=== PATIENT | male | born 1950 | race Caucasian/White ===

== ENCOUNTER 2023-04-10 13:02 | Emergency (ER) | payer MEDICARE, MEDICAID, SELFPAY ==
--- NOTE | ~2023-04-10 | XR_ITS ---
Examination: Right ankle, right tibia and fibula, right femur and right foot. Clinical indications: Trauma. Swelling. COMPARISON: None. TECHNIQUE: Right foot 3 views. Right ankle 2 views. Right tibia and fibula 2 views. Right femur 2 views. FINDINGS: Right foot: There is mild loss of first tarsophalangeal joint with no bony erosive changes. No visible acute fracture or dislocation seen. The soft tissues are normal. Right ankle: The ankle mortise and subtalar joints are normal. There is a small calcaneal heel and retrocalcaneal enthesophyte. The soft tissues are normal. Right tibia and fibula: There is no visible fracture or bony abnormality. The bony cortex and periosteum is intact. There is vascular calcification without soft tissue swelling. Mild degenerative loss of medial and lateral compartment joint space with periarticular spurring medial compartment is noted.. XR/XR femur RT 2V IMPRESSION: 1. No acute fracture or dislocation right foot, right tibia and fibula. 2. Small calcaneal heel and moderate size retrocalcaneal enthesophytes. 3. Mild degenerative changes first metatarsophalangeal joint. 4. There is no visible acute fracture or dislocation right ankle. There is mild degenerative changes medial and lateral compartment right knee.
--- NOTE | ~2023-04-10 | XR_ITS ---
Examination: Right ankle, right tibia and fibula, right femur and right foot. Clinical indications: Trauma. Swelling. COMPARISON: None. TECHNIQUE: Right foot 3 views. Right ankle 2 views. Right tibia and fibula 2 views. Right femur 2 views. FINDINGS: Right foot: There is mild loss of first tarsophalangeal joint with no bony erosive changes. No visible acute fracture or dislocation seen. The soft tissues are normal. Right ankle: The ankle mortise and subtalar joints are normal. There is a small calcaneal heel and retrocalcaneal enthesophyte. The soft tissues are normal. Right tibia and fibula: There is no visible fracture or bony abnormality. The bony cortex and periosteum is intact. There is vascular calcification without soft tissue swelling. Mild degenerative loss of medial and lateral compartment joint space with periarticular spurring medial compartment is noted.. XR/XR ankle RT 2V IMPRESSION: 1. No acute fracture or dislocation right foot, right tibia and fibula. 2. Small calcaneal heel and moderate size retrocalcaneal enthesophytes. 3. Mild degenerative changes first metatarsophalangeal joint. 4. There is no visible acute fracture or dislocation right ankle. There is mild degenerative changes medial and lateral compartment right knee.
--- NOTE | ~2023-04-10 | XR_ITS ---
Examination: Right ankle, right tibia and fibula, right femur and right foot. Clinical indications: Trauma. Swelling. COMPARISON: None. TECHNIQUE: Right foot 3 views. Right ankle 2 views. Right tibia and fibula 2 views. Right femur 2 views. FINDINGS: Right foot: There is mild loss of first tarsophalangeal joint with no bony erosive changes. No visible acute fracture or dislocation seen. The soft tissues are normal. Right ankle: The ankle mortise and subtalar joints are normal. There is a small calcaneal heel and retrocalcaneal enthesophyte. The soft tissues are normal. Right tibia and fibula: There is no visible fracture or bony abnormality. The bony cortex and periosteum is intact. There is vascular calcification without soft tissue swelling. Mild degenerative loss of medial and lateral compartment joint space with periarticular spurring medial compartment is noted.. XR/XR foot RT 2V IMPRESSION: 1. No acute fracture or dislocation right foot, right tibia and fibula. 2. Small calcaneal heel and moderate size retrocalcaneal enthesophytes. 3. Mild degenerative changes first metatarsophalangeal joint. 4. There is no visible acute fracture or dislocation right ankle. There is mild degenerative changes medial and lateral compartment right knee.
--- NOTE | ~2023-04-10 | US_ITS ---
EXAMINATION: US VENOUS ULTRASOUND WITH DOPPLER LOWER EXTREMITY, RIGHT CLINICAL INFORMATION: Right foot swelling. COMPARISON: None available. TECHNIQUE: Ultrasound of the deep veins is performed from the hip to the calf with compression sonography and color and pulse Doppler assessment. Spectral analysis with color-flow imaging is performed. FINDINGS: There is normal venous compression and respiratory variation and augmented flow when possible. Portions of the popliteal vein could not be compressed due to pain. The visualized common femoral vein, superficial femoral vein, profunda femoral vein, popliteal vein, and the trifurcation region shows no evidence of deep venous thrombosis. Popliteal fossa fluid collection measures 5.9 x 1.0 x 2.3 cm. If the patient's symptoms persist, followup ultrasound in 5 days 7 days might be of value to exclude proximal propagation from a non-visualized calf vein. US/US venous duplex LE RT IMPRESSION: No DVT demonstrated in the right lower extremity. Rouleaux artifact/slow flow is seen throughout the venous system. Popliteal fossa fluid collection measures 5.9 x 1.0 x 2.3 cm.
--- NOTE | ~2023-04-10 | XR_ITS ---
Examination: Right ankle, right tibia and fibula, right femur and right foot. Clinical indications: Trauma. Swelling. COMPARISON: None. TECHNIQUE: Right foot 3 views. Right ankle 2 views. Right tibia and fibula 2 views. Right femur 2 views. FINDINGS: Right foot: There is mild loss of first tarsophalangeal joint with no bony erosive changes. No visible acute fracture or dislocation seen. The soft tissues are normal. Right ankle: The ankle mortise and subtalar joints are normal. There is a small calcaneal heel and retrocalcaneal enthesophyte. The soft tissues are normal. Right tibia and fibula: There is no visible fracture or bony abnormality. The bony cortex and periosteum is intact. There is vascular calcification without soft tissue swelling. Mild degenerative loss of medial and lateral compartment joint space with periarticular spurring medial compartment is noted.. XR/XR tibia fibula RT 2V IMPRESSION: 1. No acute fracture or dislocation right foot, right tibia and fibula. 2. Small calcaneal heel and moderate size retrocalcaneal enthesophytes. 3. Mild degenerative changes first metatarsophalangeal joint. 4. There is no visible acute fracture or dislocation right ankle. There is mild degenerative changes medial and lateral compartment right knee.
[2023-04-10 13:20] VITALS: BP 124/71; BP 148/82; PULSE 92; PULSE 93; RESP 16; TEMP 37.2; O2SAT 97; O2SAT 98; BMI 25.6
--- OUTSIDE RECORDS SUMMARY | 2023-04-10 14:16 | XMS_ITS | Continuity of Care Document ---
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 Name Role Phone Otf Zelaya MD Primary Care Physician [place] [facility] [place] 06[place]20 - 06/18/20 [facility] Adult [address] [place] [address]- Encounter Diagnosis Left knee injury(Discharge Diagnosis) - 06/11/20 Attending Physician: Cydney Benton NP Referring Physician: Otf Zelaya MD Allergies, Adverse Reactions, Alerts Substance Reaction Severity Status ibuprofen ANAPHYLAXIS Active aspirin anaphylaxis Severe Active Flomax Active Immunizations Given and Recorded Vaccine Date Status Refusal Reason pneumococcal 13-valent vaccine 05/16/15 Given tetanus/diphtheria/pertussis, acel(Tdap) 07/07/13 Given Hepatitis B Vaccine (old term) 09/23/04 Given Hepatitis B Vaccine (old term) 03/26/04 Given Hepatitis B Vaccine (old term) 02/24/04 Given Hepatitis A Adult Vaccine 03/26/04 Given Hepatitis A Adult Vaccine 02/24/04 Given Pneumococcal Vaccine (oldterm) 03/09/04 Given tetanus-diphtheria toxoids (Td) 01/07/03 Given Medications Accu-Chek Cherelle Plus Test Strips See Instructions, # 100 each, Refills 3, Tot. Refills 3, Maintenance, Please use as directed to test BS's BID for DM2 E11.9 REFAXED WITH QTY REQUIRED BY MEDICARE, 07/25/15 10:22:14, Compound Start Date: 07/25/15 Status: Ordered Flonase 50 mcg/inh nasal spray 2 sprays, Nasal, Daily, # 1 each, 11 Refills, Maintenance, 04/18/20 9:32:00 EST, [id number], 2 sprays Nasal Daily,x30 days, 165, cm, 04/18/20 9:20:00 EST, Height Start Date: 04/18/20 Stop Date: 04/13/21 Status: Ordered nitroglycerin 0.4 mg sublingual tablet 1 tablet = 0.4 mg, Sublingual, Every 5 minutes, PRN Pain , Moderate, (not to exceed 3 doses/15 min--if pain persists, seek medical attention), # 25 tablet, 0 Refills, Maintenance, 02/10/18 9:40:43 EST Start Date: 02/10/18 Status: Ordered Pen [place], 30 G x 8 mm BD Ultra Fine II See Instructions, # 30 each, Refills 6, Tot. Refills 6, Maintenance, Please use as directed to administer insulin SQ daily for DM2 E11.9 REFAXED, 07/24/15 13:47:37, Compound Start Date: 07/24/15 Status: Ordered Plavix 75 mg oral tablet 75 mg, 1, tablet, By Mouth, Daily, # 90 tablet, Refills 3, Tot. Refills 3, Maintenance, 10/14/19 9:18:00 EDT, Route to Pharmacy Electronically, [id number], 165, cm, 10/14/19 9:03:00EDT, Height, 80, kg, 03/23/18 18:39:00 EST, Dry Weight Start Date: 10/14/19 Status: Ordered Soft Click Lancets See Instructions, # 60 each, Refills 6, Tot. Refills 6, Maintenance, Please use as directed to testBS's BID for DM2 E11.9, 04/06/15 15:06:48, Compound Start Date: 04/06/15 Status: Ordered Ventolin HFA 108 mcg/inh inhalation aerosol with adapter 2 puffs, Inhalation, 4 times a day, PRN for wheezing, # 8 Gm, 11 Refills, Maintenance, 04/18/20 9:32:00 EST, Aerosol, [facility]/pharmacy #[id number], 165, cm, 04/18/20 9:20:00 EST, Height Start Date: 04/18/20 Status: Ordered Viagra 50 mg oral tablet 1 tablet = 50 mg, By Mouth, Daily, 1 hour before sexual activity, # 30 tablet, 5 Refills, Maintenance, 04/18/20 9:33:00 EST, Tablet, [facility]/pharmacy #[id number], 165, cm, 04/18/20 9:20:00 EST, Height Start Date: 04/18/20 Status: Ordered Zestril 20 mg oral tablet 20 mg, 1, tablet, By Mouth, Daily, # 90 tablet, Refills 3, Tot. Refills 3, Maintenance, 01/20/20 8:52:00 EST, Route to Pharmacy Electronically, [facility]/pharmacy #[id number], 165, cm, 10/14/19 9:03:00 EDT, Height, 80, kg, 03/23/18 18:39:00 EST, Dry Weight Start Date: 01/20/20 Status: Ordered Zetia 10 mg oral tablet 1 tablet = 10 mg, By Mouth, Daily, # 90 tablet, 3 Refills, Maintenance, 01/20/20 8:52:00 EST, [facility]/pharmacy #[id number], 165, cm, 10/14/19 9:03:00 EDT, Height, 80, kg, 03/23/18 18:39:00 EST, Dry Weight Start Date: 01/20/20 Status: Ordered Problem List Condition Effective Dates Status Health Status Inform ant Adenomatous polyposis coli(C onfirmed) 1 Active Allergic Rhinitis(Confirmed) Active Asthma(Confirmed) Active BPH (benign prostatic hypertrophy)(Confirmed) Active CAD (coronary artery disease)(Confirmed) Active Chronic hepatitis C(Confirmed) Active 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 CS (cervical spondylosis)(Confirmed) Active Diabetes mellitus, type II(Confirmed) Active HTN (hypertension)(Confirmed) Active Hypercholesterolemia(Confirmed) Active Erectile dysfunction(Confirmed) Active Left knee injury(Confirmed) Active Arthralgia(Confirmed) Active 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
--- OUTSIDE RECORDS SUMMARY | 2023-04-10 14:16 | XMS_ITS | Continuity of Care Document ---
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 Name Role Phone Nathalie ARAGON, Otf Del Rosario Primary Care Physician Encounter [facility] [place] Date(s): 05/21/20 - 06/20/20 [facility] Adult [address] [place] [address]- Attending Physician: Tolu Rivera MD Allergies, Adverse Reactions, Alerts Substance Reaction [...] 11 Refills, Maintenance, 04/18/20 9:32:00 EST, [id number], 2 sprays Nasal Daily,x30 days, 165, cm, 04/18/20 9:20:00 EST, Height Start Date: 04/18/20 Stop Date: 04/13/21 Status: Ordered nitroglycerin 0.4 mg sublingual tablet 1 tablet = 0.4 mg, Sublingual, Every 5 minutes, PRN Pain , Moderate, (not to exceed 3 doses/15 min--if pain persists, seek medical attention), # 25 tablet, 0 Refills, Maintenance, 02/10/18 9:40:43 EST Start Date: 02/10/18 Status: Ordered Pen [place], 30 G x 8 mm BD Ultra [...] 11 Refills, Maintenance, 04/18/20 9:32:00 EST, Aerosol, [facility]/pharmacy #[id number], 165, cm, 04/18/20 9:20:00 EST, Height Start Date: 04/18/20 Status: Ordered Viagra 50 mg oral tablet 1 tablet = 50 mg, By Mouth, Daily, 1 hour before sexual activity, # 30 tablet, 5 Refills, Maintenance, 04/18/20 9:33:00 EST, Tablet, [facility]/pharmacy #[id number], 165, cm, 04/18/20 9:20:00 EST, Height Start Date: 04/18/20 Status: Ordered Zestril 20 mg oral tablet 20 mg, 1, tablet, By Mouth, Daily, # 90 tablet, Refills 3, Tot. Refills 3, Maintenance, 01/20/20 8:52:00 EST, Route to Pharmacy Electronically, [facility]/pharmacy #[id number], 165, cm, 10/14/19 9:03:00 EDT, Height, 80, kg, 03/23/18 18:39:00 EST, Dry Weight Start Date: 01/20/20 Status: Ordered Zetia 10 mg oral tablet 1 tablet = 10 mg, By Mouth, Daily, # 90 tablet, 3 Refills, Maintenance, 01/20/20 8:52:00 EST, [facility]/pharmacy #[id number], 165, cm, 10/14/19 9:03:00 EDT, Height, [...] Active 1colonoscopy 2004 positive polyp, repeat 2007 Social History Social History Type Response Smoking Status Former smoker; Other : Quit smoking age 44; entered on: 08/22/15 Sex
--- OUTSIDE RECORDS SUMMARY | 2023-04-10 14:16 | XMS_ITS | Continuity of Care Document ---
Author Name Unknown Organization 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 Name Role Phone Otf Zelaya MD Primary Care Physician [place] [facility] [place] 05[place]/21 [facility] Adult [address] [place] [address]- Encounter Diagnosis Chronic hepatitis C(Discharge Diagnosis) - 05/08/21 CKD stage 3 due to type 2 diabetes mellitus(Discharge Diagnosis) - 05/08/21 Diabetes mellitus, type II(Discharge Diagnosis) - 05/08/21 HTN (hypertension)(Discharge Diagnosis) - 05/08/21 Hypercholesterolemia(Discharge Diagnosis) - 05/08/21 CAD (coronary artery disease)(Discharge Diagnosis) - 05/08/21 Attending Physician: Otf Zelaya MD Allergies, Adverse Reactions, Alerts Substance Reaction Severity Status ibuprofen ANAPHYLAXIS Active aspirin anaphylaxis Severe Active Flomax Active Immunizations Given and Recorded Vaccine Date Status Refusal Reason SARS-CoV-2 (COVID-19) mRNA BNT-162b2 vac 1 05/08/21 Given pneumococcal 13-valent vaccine 05/16/15 Given tetanus/diphtheria/pertussis, acel(Tdap) 07/07/13 Given Hepatitis B Vaccine (old term) 09/23/04 Given Hepatitis B Vaccine (old term) 03/26/04 Given Hepatitis B Vaccine (old term) 02/24/04 Given Hepatitis A Adult Vaccine 03/26/04 Given Hepatitis A Adult Vaccine 02/24/04 Given Pneumococcal Vaccine (oldterm) 03/09/04 Given tetanus-diphtheria toxoids (Td) 01/07/03 Given Not Given Vaccine Date Status Refusal Reason influenza virus vaccine, inactivated 04/12/21 Not Given Patient Refuses 1Early/Late Reason: Early/Late Reason: Other : post doc Medications 1 walker. Use for ambulation 1 walker. Use for ambulation, See Instructions, # 1 each, Refills 0, Tot. Refills 0, Maintenance, 1walker, 06/27/20 15:18:00 EDT, Supply Start Date: 06/27/20 Status: Ordered 1 wheelchair 1 wheelchair, See Instructions, # 1 each, Refills 0, Tot. Refills 0, Maintenance, 1 wheelchair. Diagnosis- generalized weakness, chronic L/E Pain, 06/27/20 15:18:00 EDT, Supply Start Date: 06/27/20 Status: Ordered aspirin 81 mg oral delayed release tablet 81 mg, 1, tablet, By Mouth, Daily, Do not crush, chew, or split, # 90 tablet, Refills 1, Tot. Refills 1, Maintenance, 04/22/21 8:20:00 EST, Route to Pharmacy Electronically, [facility]/pharmacy #[id number], Partial fill upon patient request if the prescription is... Start Date: 04/22/21 Status: Ordered atorvastatin 10 mg oral tablet 1 tablet = 10 mg, By Mouth, Daily, # 30 tablet, 6 Refills, Maintenance, 04/22/21 8:42:00 EST, [id number], Partial fill upon patient request if the prescription is for a schedule II opioid drug., 175, cm, 04/22/21 8:02:00 EST, Height, 88.5, kg,... Start Date: 04/22/21 Status: Ordered Cardizem CD 120 mg/24 hours oral capsule, extended release 120 mg, 1, capsule, By Mouth, Daily, # 90 capsule, Refills 3, Tot. Refills 3, Maintenance, 05/08/2209:46:00 EST, Route to Pharmacy Electronically, [facility]/pharmacy #[id number], Partial fill upon patient request if the prescription is for a schedule II opioid d... Start Date: 05/08/21 Stop Date: 05/03/22 Status: Ordered Flonase Sensimist 27.5 mcg/inh nasal spray 1 sprays, Nares, Both, Daily, PRN Nasal Congestion, Maintenance, 06/21/20 8:35:00 EDT Start Date: 06/21/20 Status: Ordered gabapentin 100 mg oral capsule 100 mg, 1, capsule, By Mouth, 3 times a day, # 270 capsule, Refills 1, Tot. Refills 1, Maintenance,04/22/21 8:20:00 EST, Route to Pharmacy Electronically, [facility]/pharmacy #[id number], Partial fill upon patient request if the prescription is for a schedule II... Start Date: 04/22/21 Status: Ordered lisinopril 20 mg oral tablet 1, tablet, By Mouth, Daily, # 90 tablet, Refills 1, Tot. Refills 1, 04/22/21 8:20:00 EST, Route to Pharmacy Electronically, [facility]/pharmacy #[id number], 175, cm, 04/22/21 8:02:00 EST, Height, 88.5, kg, 04/11/21 0:05:00 EST, Dry Weight Start Date: 04/22/21 Status: Ordered metFORMIN 500 mg oral tablet 1 tablet = 500 mg, By Mouth, 2 times a day, # 180 tablet, 1 Refills, Maintenance, 04/22/21 8:22:00 EST, Tablet, [facility]/pharmacy #[id number], Partial fill upon patient request if the prescription is for a schedule II opioid drug., 175, cm, 04/22/21 8:02:00 EST,... Start Date: 04/22/21 Status: Ordered nitroglycerin 0.4 mg sublingual tablet 1 tablet = 0.4 mg, Sublingual, Every 5 minutes, PRN Pain , Moderate, (not to exceed 3 doses/15 min--if pain persists, seek medical attention), # 25 tablet, 0 Refills, Maintenance, 04/22/21 8:20:00 EST, [facility]/pharmacy #[id number], 175, cm, 04/22/21 8:02:00 EST... Start Date: 04/22/21 Status: Ordered One Touch Ultra 2 Glucose Meter See Instructions, # 1 each, Maintenance, dm 2 E11.9 check blood sugar twice a day, 04/23/21 10:42:00 EST, Supply, 175, cm, 04/22/21 8:02:00 EST, Height, 88.5, kg, 04/11/21 0:05:00 EST, Dry Weight Start Date: 04/23/21 Status: Ordered One Touch Ultra Lancets One Touch Ultra Lancets, See Instructions, # 100 each, Refills 11, Tot. Refills 11, Maintenance, 1 box = 100 lancets DM 2 E11.9 Check blood sugar twice a day, 05/08/21 15:17:00 EST, Supply, 175, cm, 05/08/21 10:15:00 EST, Height, 88.5, kg, 04/11/21... Start Date: 05/08/21 Status: Ordered One Touch Ultra Test Strips See Instructions, # 100 each, Refills 11, Tot. Refills 11, Maintenance, dm 2 E11.9 check blood sugar twice a day, 04/23/21 10:42:00 EST, Supply, 175, cm, 04/22/21 8:02:00 EST, Height, 88.5, kg, 04/11/21 0:05:00 EST, Dry Weight Start Date: 04/23/21 Status: Ordered ticagrelor 90 mg oral tablet 1 tablet = 90 mg, By Mouth, 2 times a day, # 180 tablet, 1 Refills, Maintenance, 04/22/21 8:20:00 EST, Tablet, [id number], Partial fill upon patient request if the prescription is for a schedule II opioid drug., 175, cm, 04/22/21 8:02:00 EST,... Start Date: 04/22/21 Status: Ordered Ventolin HFA 108 mcg/inh inhalation aerosol with adapter 2 puffs, Inhalation, 4 times a day, PRN for wheezing, # 8 Gm, 11 Refills, Maintenance, 04/22/21 8:20:00 EST, Aerosol, [id number], 175, cm, 04/22/21 8:02:00 EST, Height, 88.5, kg, 04/11/21 0:05:00 EST, Dry Weight Start Date: 04/22/21 Status: Ordered Zetia 10 mg oral tablet 1 tablet = 10 mg, By Mouth, Daily, # 90 tablet, 3 Refills, Maintenance, 04/22/21 8:20:00 EST, [id number], 175, cm, 04/22/21 8:02:00 EST, Height, 88.5, kg, 04/11/21 0:05:00 EST, Dry Weight Start Date: 04/22/21 Status: Ordered Problem List Condition Effective Dates Status Health Status Inform ant Adenomatous polyposis coli(C onfirmed) 1 Active Allergic Rhinitis(Confirmed) Active Asthma(Confirmed) Active BPH (benign prostatic hypertrophy)(Confirmed) Active CAD (coronary artery disease)(Confirmed) Active Chronic hepatitis C(Confirmed) Active 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 CS (cervical spondylosis)(Confirmed) Active Diabetes mellitus, type II(Confirmed) Active History of ST elevation myoc ardial infarction(Confirmed) Active HTN (hypertension)(Confirmed) Active Hypercholesterolemia(Confirmed) Active Erectile dysfunction(Confirmed) Active Left knee injury(Confirmed) Active Arthralgia(Confirmed) Active Knee pain, bilateral(Confirmed) Active Diabetic neuropathy, type II diabetes mellitus(Confirmed) Active 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) Active 1colonoscopy 2004 positive polyp, repeat 2007 Diagnosis Diagnosis Type Effective Dates Health Status Clinical Service Informant Chronic hepatitis C Discharge Diagnosis 05/08/21 CKD stage 3 due to type 2 diabetes mellitus Discharge Diagnosis 05/08/21 Diabetes mellitus, type II Discharge Diagnosis 05/08/21 HTN (hypertension) Discharge Diagnosis 05/08/21 Hypercholesterolemia Discharge Diagnosis 05/08/21 CAD (coronary artery disease) Discharge Diagnosis 05/08/21 Vital Signs Most recent to oldest [Reference Range]: 1 Height 175 cm (05/08/21 10:15 AM) Weight 91.2 kg (05/08/21 10:15 AM) Oxygen Saturation [94-100 %] 97 % (05/08/21 10:15 AM) Pulse Rate [55-90 bpm] 82 bpm (05/08/21 10:15 AM) Body Mass Index [18.5-24.99] 29.78 *H* (05/08/21 10:15 AM) Blood Pressure [90-138/55-84 mm Hg] 130/ 70mm Hg (05/08/21 10:15 AM) Mode of Delivery (Oxygen) Room air (05/08/21 10:15 AM) Weight Obtained Via Standing scale (05/08/21 10:15 AM) Social History Social History Type Response Smoking Status Former smoker; Other : Quit smoking age 44; entered on: 08/22/15 Sex
--- OUTSIDE RECORDS SUMMARY | 2023-04-10 14:16 | XMS_ITS | Continuity of Care Document ---
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 Role Phone Nathalie ARAGON, Otf Del Rosario Primary Care Physician [phone] [place]counter [facility] [place](s): 04/23/21 - 07/04/21 [facility] [address] [place] [address]- Attending Physician: Lainey Booth MD Admitting Physician: Lainey Booth MD Referring Physician: Liset TURCIOS, Brielle Johnson Allergies, Adverse Reactions, Alerts Substance Reaction Severity [...] 04/22/21 8:20:00 EST, [id number], Partial fill upon patient request [...] Maintenance, 05/08/2209:46:00 EST, Route to Pharmacy Electronically, [facility]/pharmacy #[id number], Partial fill upon patient request if [...] Maintenance,04/22/21 8:20:00 EST, Route to Pharmacy Electronically, [facility]/pharmacy #[id number], Partial fill upon patient request if the prescription is for a schedule II... Start Date: 04/22/21 Status: Ordered lisinopril 20 mg oral tablet 1, tablet, By Mouth, Daily, # 90 tablet, Refills 1, Tot. Refills 1, 04/22/21 8:20:00 EST, Route to Pharmacy Electronically, [facility]/pharmacy #[id number], 175, cm, 04/22/21 8:02:00 EST, Height, 88.5, kg, 04/11/21 0:05:00 EST, Dry Weight Start Date: 04/22/21 Status: Ordered metFORMIN 500 mg oral tablet 1 tablet = 500 mg, By Mouth, 2 times a day, # 180 tablet, 1 Refills, Maintenance, 04/22/21 8:22:00 EST, Tablet, [facility]/pharmacy #[id number], Partial fill upon patient request if the prescription is for a schedule II opioid drug., 175, cm, 04/22/21 8:02:00 EST,... Start Date: 04/22/21 Status: Ordered nitroglycerin 0.4 mg sublingual tablet 1 tablet, By Mouth, Every 5 minutes, PRN NEEDED FOR MODERATE CHEST PAIN (NOT TO EXCEED 3 DOSES/15 MINUTES, IF PAIN PERSISTS, SEEK MEDICATION ATTENTION), # 25 tablet, 0 Refills, Maintenance, 06/11/21 10:00:00 EDT, [facility]/pharmacy #[id number], 175, cm, 05/08/... Start Date: 06/11/21 Status: Ordered One Touch Ultra 2 Glucose Meter See Instructions, # 1 each, Maintenance, dm 2 E11.9 check blood sugar twice a day, 05/16/21 12:58:00 EST, Supply, 175, cm, 05/08/21 10:15:00 EST, Height, 88.5, kg, 04/11/21 0:05:00 EST, Dry Weight Start Date: 05/16/21 Status: Ordered One Touch Ultra Lancets One [...] 1 Refills, Maintenance, 04/22/21 8:20:00 EST, Tablet, [facility]/pharmacy #[id number], Partial fill upon patient request if the prescription is for a schedule II opioid drug., 175, cm, 04/22/21 8:02:00 EST,... Start Date: 04/22/21 Status: Ordered Ventolin HFA 108 mcg/inh inhalation aerosol with adapter 2 puffs, Inhalation, 4 times a day, PRN for wheezing, # 8 Gm, 11 Refills, Maintenance, 04/22/21 8:20:00 EST, Aerosol, [facility]/pharmacy #[id number], 175, cm, 04/22/21 8:02:00 EST, Height, [...]
--- OUTSIDE RECORDS SUMMARY | 2023-04-10 14:16 | XMS_ITS | Continuity of Care Document ---
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 Name Role Phone Otf Zelaya MD Primary Care Physician Encounter [place] Date(s): 10/14/19 - 10/21/19 [facility] Adult [address] [place] [address]- [facility] Encounter Diagnosis Diabetes mellitus, type II(Discharge Diagnosis) - 10/14/19 CAD (coronary artery disease)(Discharge Diagnosis) - 10/14/19 HTN (hypertension)(Discharge Diagnosis) - 10/14/19 Hypercholesterolemia(Discharge Diagnosis) - 10/14/19 Asthma(Discharge Diagnosis) - 10/14/19 Attending Physician: Otf Zelaya MD Allergies, Adverse [...] Daily, # 1 each, 11 Refills, Maintenance, 04/15/19 8:56:00 EST, [facility]/pharmacy #[id number], 2 sprays Nasal Daily,x30 days, 165, cm, 04/15/19 8:45:00 EST, Height, 80, kg, 03/23/18 18:39:00 EST, Dry Weight Start Date: 04/15/19 Stop Date: 04/09/20 Status: Ordered nitroglycerin 0.4 mg sublingual tablet 1 tablet = 0.4 mg, Sublingual, Every 5 minutes, PRN Pain , Moderate, (not to exceed 3 doses/15 min--if pain persists, seek medical attention), # 25 tablet, 0 Refills, Maintenance, 02/10/18 9:40:43 EST Start Date: 02/10/18 Status: Ordered Pen [place], 30 G x 8 mm BD Ultra [...] 10/14/19 9:18:00 EDT, Route to Pharmacy Electronically, [facility], 165, cm, 10/14/19 9:03:00EDT, Height, [...] wheezing, # 8 Gm, 11 Refills, Maintenance, 10/14/19 9:18:00 EDT, Aerosol, [facility], 165, cm, 10/14/19 9:03:00 EDT, Height, 80, kg, 03/23/18 18:39:00 EST, Dry Weight Start Date: 10/14/19 Status: Ordered Viagra 50 mg oral tablet 1 tablet = 50 mg, By Mouth, Daily, 1 hour before sexual activity, # 30 tablet, 5 Refills, Maintenance, 04/15/19 9:16:00 EST, Tablet, [facility], 165, cm, 04/15/19 8:45:00 EST, Height, 80, kg, 03/23/18 18:39:00 EST, Dry Weight Start Date: 04/15/19 Status: Ordered Zestril 20 mg oral tablet 20 mg, 1, tablet, By Mouth, Daily, # 90 tablet, Refills 3, Tot. Refills 3, Maintenance, 10/14/19 9:18:00 EDT, Route to Pharmacy Electronically, [facility], 165, cm, 10/14/19 9:03:00EDT, Height, 80, kg, 03/23/18 18:39:00 EST, Dry Weight Start Date: 10/14/19 Status: Ordered Zetia 10 mg oral tablet 1 tablet = 10 mg, By Mouth, Daily, # 90 tablet, 3 Refills, Maintenance, 10/14/19 9:18:00 EDT, [facility], 165, cm, 10/14/19 9:03:00 EDT, Height, 80, kg, 03/23/18 18:39:00 EST, Dry Weight Start Date: 10/14/19 Status: Ordered Problem List Condition Effective Dates [...] (hypertension)(Confirmed) Active Hypercholesterolemia(Confirmed) Active Erectile dysfunction(Confirmed) Active Arthralgia(Confirmed) Active 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) Active 1colonoscopy 2004 positive polyp, repeat 2008 Diagnosis Diagnosis Type Effective Dates Health Status Clinical Service Informant Diabetes mellitus, type II Discharge Diagnosis 10/14/19 CAD (coronary artery disease) Discharge Diagnosis 10/14/19 HTN (hypertension) Discharge Diagnosis 10/14/19 Hypercholesterolemia Discharge Diagnosis 10/14/19 Asthma Discharge Diagnosis 10/14/19 Vital Signs Most recent to oldest [Reference Range]: 1 Height 165 cm (10/14/19 9:03 AM) Weight 85.1 kg (10/14/19 9:03 AM) Oxygen Saturation [94-100 %] 97 % (10/14/19 9:03 AM) Pulse Rate [55-90 bpm] 78 bpm (10/14/19 9:03 AM) Body Mass Index [18.5-24.99] 31.26 *>HHI* (10/14/19 9:03 AM) Blood Pressure [90-138/55-84 mm Hg] 137/ 73mm Hg (10/14/19 9:03 AM) Respiratory Rate [16-30 br/min] 12 br/mi n *L* (10/14/19 9:03 AM) Mode of Delivery (Oxygen) Room air (10/14/19 9:03 AM) Blood pressure sites Arm, left (10/14/19 9:03 AM) Weight Obtained Via Standing scale (10/14/19 9:03 AM) Social History Social History Type Response Smoking Status Former smoker; Other : Quit smoking age 44; entered on: 08/22/15 Sex
--- OUTSIDE RECORDS SUMMARY | 2023-04-10 14:16 | XMS_ITS | Continuity of Care Document ---
Author Name Unknown Organization [facility] Sudhakar lt Address [address] [place] [address]- Care Team Providers Care Neonatal Specialist Name Role Phone Otf Zelaya MD Primary Care Physician [phone] [place] [facility] [place]20 [facility] Adult [address] [place] [address]- Allergies, Adverse Reactions, Alerts Substance Reaction Severity [...] EST Start Date: 02/10/18 Status: Ordered Pen [place], 30 G x 8 mm BD Ultra [...] 11 Refills, Maintenance, 04/18/20 9:32:00 EST, Aerosol, [facility]/pharmacy #[id number], 165, cm, 04/18/20 9:20:00 EST, Height Start Date: 04/18/20 Status: Ordered Viagra 50 mg oral tablet 1 tablet = 50 mg, By Mouth, Daily, 1 hour before sexual activity, # 30 tablet, 5 Refills, Maintenance, 04/18/20 9:33:00 EST, Tablet, [facility]/pharmacy #[id number], 165, cm, 04/18/20 9:20:00 EST, Height Start Date: 04/18/20 Status: Ordered Zestril 20 mg oral tablet 20 mg, 1, tablet, By Mouth, Daily, # 90 tablet, Refills 3, Tot. Refills 3, Maintenance, 01/20/20 8:52:00 EST, Route to Pharmacy Electronically, [facility]/pharmacy #[id number], 165, cm, 10/14/19 9:03:00 EDT, Height, 80, kg, 03/23/18 18:39:00 EST, Dry Weight Start Date: 01/20/20 Status: Ordered Zetia 10 mg oral tablet 1 tablet = 10 mg, By Mouth, Daily, # 90 tablet, 3 Refills, Maintenance, 01/20/20 8:52:00 EST, [facility]/pharmacy #[id number], 165, cm, 10/14/19 9:03:00 EDT, Height, [...]
--- OUTSIDE RECORDS SUMMARY | 2023-04-10 14:16 | XMS_ITS | Continuity of Care Document ---
Author Name Unknown Organization [facility] Address [address] [place] [address]- Care Team Providers Care Photo Lab Technician Name Role Phone Otf Zelaya MD Primary Care Physician En[place] [facility] [place](s): 06/04/21 - 07/04/21 [facility] [address] [place] [id number]- Attending Physician: AdmtrJohnie Allergies, Adverse Reactions, Alerts Substance Reaction Severity [...] Maintenance, 05/08/2209:46:00 EST, Route to Pharmacy Electronically, [id number], [...] Maintenance,04/22/21 8:20:00 EST, Route to Pharmacy Electronically, [id number], Partial fill upon patient request if the prescription is for a schedule II... Start Date: 04/22/21 Status: Ordered lisinopril 20 mg oral tablet 1, tablet, By Mouth, Daily, # 90 tablet, Refills 1, Tot. Refills 1, 04/22/21 8:20:00 EST, Route to Pharmacy Electronically, [facility]/pharmacy #[id number], 175, cm, 04/22/21 8:02:00 EST, Height, 88.5, kg, 04/11/21 0:05:00 EST, Dry Weight Start Date: 04/22/21 Status: Ordered metFORMIN 500 mg oral tablet 1 tablet = 500 mg, By Mouth, 2 times a day, # 180 tablet, 1 Refills, Maintenance, 04/22/21 8:22:00 EST, Tablet, [facility]/pharmacy #[id number], Partial fill upon patient request [...] tablet, 0 Refills, Maintenance, 06/11/21 10:00:00 EDT, [facility]/pharmacy #[id number], 175, cm, ... Start Date: 06/11/21 Status: Ordered One Touch [...] 1 Refills, Maintenance, 04/22/21 8:20:00 EST, Tablet, [facility]/pharmacy #[id number], Partial fill upon patient request if the prescription is for a schedule II opioid drug., 175, cm, 04/22/21 8:02:00 EST,... Start Date: 04/22/21 Status: Ordered Ventolin HFA 108 mcg/inh inhalation aerosol with adapter 2 puffs, Inhalation, 4 times a day, PRN for wheezing, # 8 Gm, 11 Refills, Maintenance, 04/22/21 8:20:00 EST, Aerosol, [facility]/pharmacy #[id number], 175, cm, 04/22/21 8:02:00 EST, [...]
--- OUTSIDE RECORDS SUMMARY | 2023-04-10 14:16 | XMS_ITS | Continuity of Care Document ---
Author Name Unknown Organization [facility] Sudhakar lt Address [address] [place] [address]- Care Team Providers Care Special Agent [employer] Name Role Phone Nathalie ARAGON, Otf Del Rosario Primary Care Physician [place] [facility] [place]20 [facility] Adult [address] [place] [address]- Attending Physician: Brielle Hutchins NP Allergies, Adverse Reactions, Alerts Substance Reaction Severity [...] Given tetanus-diphtheria toxoids (Td) 01/07/03 Given Medications 1 walker. Use for ambulation 1 [...] EDT, Supply Start Date: 06/27/20 Status: Ordered Accu-Chek Cherelle Plus Test Strips See Instructions, # 100 each, Refills 3, Tot. Refills 3, Maintenance, Please use as directed to test BS's BID for DM2 E11.9 REFAXED WITH QTY REQUIRED BY MEDICARE, 07/25/15 10:22:14, Compound Start Date: 07/25/15 Status: Ordered bisacodyl 10 mg rectal suppository 1 supp = 10 mg, Rectally, Daily, PRN as needed for constipation, Maintenance, 06/21/20 8:38:00 EDT Start Date: 06/21/20 Status: Ordered Fleet Enema 19 gm-7 gm rectal enema 133 mL, Rectally, Once, PRN as needed for constipation, Maintenance, 06/21/20 8:38:00 EDT Start Date: 06/21/20 Status: Ordered Flonase Sensimist 27.5 mcg/inh nasal spray 1 sprays, Nares, Both, Daily, PRN Nasal Congestion, Maintenance, 06/21/20 8:35:00 EDT Start Date: 06/21/20 Status: Ordered gabapentin 100 mg oral capsule 100 mg, 1, capsule, By Mouth, 3 times a day, # 90 capsule, Refills 2, Tot. Refills 2, Maintenance, 06/27/20 15:24:00 EDT, Route to Pharmacy Electronically, [facility], Partial fill uponpatient request if the prescription is for a schedu... Start Date: 06/27/20 Status: Ordered lidocaine 4% topical film 1 patch, Topically, Daily, do not leave patch on for more than 8 hours at a time Apply to Right shoulder and Rt knee, # 60 patch, 0 Refills, Maintenance, 06/27/20 15:56:00 EDT, Film, [facility], Partial fill upon patient request if the... Start Date: 06/27/20 Status: Ordered lidocaine 5% topical film See Instructions, Topically Daily- apply 1 patch to right shoulder and 1 to right knee daily. remove patches after 12 hours, # 60 patch, 2 Refills, Maintenance, 06/27/20 15:26:00 EDT, Patch, [facility], Partial fill upon patient reques... Start Date: 06/27/20 Status: Ordered lisinopril 20 mg oral tablet 20 mg, 1, tablet, By Mouth, Daily, # 30 tablet, Refills 0, Maintenance, 06/25/20 14:41:00 EDT, Partial fill upon patient request if the prescription is for a schedule II opioid drug. Start Date: 06/25/20 Status: Ordered metFORMIN 500 mg oral tablet 1 tablet = 500 mg, By Mouth, 2 times a day, # 60 tablet, 2 Refills, Maintenance, 06/27/20 15:24:00 EDT, Tablet, [facility], Partial fill upon patient request if the prescription is for a schedule II opioid drug., 175, cm, 06/27/20 3:49:0... Start Date: 06/27/20 Status: Ordered nitroglycerin 0.4 mg sublingual tablet 1 tablet = 0.4 mg, Sublingual, Every 5 minutes, PRN Pain , Moderate, (not to exceed 3 doses/15 min--if pain persists, seek medical attention), # 25 tablet, 0 Refills, Maintenance, 02/10/18 9:40:43 EST Start Date: 02/10/18 Status: Ordered oxyCODONE 5 mg oral capsule 1 capsule = 5 mg, By Mouth, 2 times a day, PRN Pain , Moderate, # 28 capsule, 0 Refills, Maintenance, 07/16/20 16:29:00 EDT, Capsule, [facility]/pharmacy #[id number], Partial fill upon patient request if the prescription is for a schedule II opioid drug., 175, cm,... Start Date: 07/16/20 Stop Date: 07/30/20 Status: Ordered Pen [place], 30 G x 8 mm BD Ultra Fine II See Instructions, # 30 each, Refills 6, Tot. Refills 6, Maintenance, Please use as directed to administer insulin SQ daily for DM2 E11.9 REFAXED, 07/24/15 13:47:37, Compound Start Date: 07/24/15 Status: Ordered Plavix 75 mg oral tablet 75 mg, 1, tablet, By Mouth, Daily, # 30 tablet, Refills 3, Tot. Refills 3, Maintenance, 06/27/20 15:28:00 EDT, Route to Pharmacy Electronically, [facility], 175, cm, 06/27/20 3:49:00 EDT, Height, 78, kg, 06/20/20 23:41:00 EDT, Dry Weight Start Date: 06/27/20 Status: Ordered polyethylene glycol 3350 oral powder for reconstitution = 17 Gm, By Mouth, Daily, PRN Constipation, Maintenance, 06/21/20 8:37:00 EDT Start Date: 06/21/20 Status: Ordered Soft Click Lancets See Instructions, # 60 each, Refills 6, Tot. Refills 6, Maintenance, Please use as directed to testBS's BID for DM2 E11.9, 04/06/15 15:06:48, Compound Start Date: 04/06/15 Status: Ordered Ventolin HFA 108 mcg/inh inhalation aerosol with adapter 2 puffs, Inhalation, 4 times a day, PRN for wheezing, # 8 Gm, 11 Refills, Maintenance, 04/18/20 9:32:00 EST, Aerosol, [id number], 165, cm, 04/18/20 9:20:00 EST, Height Start Date: 04/18/20 Status: Ordered Zetia 10 mg oral tablet 1 tablet = 10 mg, By Mouth, Daily, # 90 tablet, 3 Refills, Maintenance, 01/20/20 8:52:00 EST, [id number], 165, cm, 10/14/19 9:03:00 EDT, Height, [...]
--- OUTSIDE RECORDS SUMMARY | 2023-04-10 14:16 | XMS_ITS | Continuity of Care Document ---
Author Name Unknown Organization [facility] Sudhakar lt Address [address] [place] [address]- Care Team Providers Care Night Time Babysitter Name Role Phone Otf Zelaya MD Primary Care Physician En[place] [facility] [place](s): 07/09/20 - 08/08/20 [facility] Adult [address] [place] [address]- Allergies, Adverse Reactions, Alerts Substance Reaction Severity [...] 06/27/20 15:24:00 EDT, Route to Pharmacy Electronically, [facility], Partial fill uponpatient request if the prescription is for a schedu... Start Date: 06/27/20 Status: Ordered lidocaine 4% topical film 1 patch, Topically, Daily, do not leave patch on for more than 8 hours at a time Apply to Right shoulder and Rt knee, # 60 patch, 0 Refills, Maintenance, 06/27/20 15:56:00 EDT, Film, [facility], Partial fill upon patient request if the... Start Date: 06/27/20 Status: Ordered lidocaine 5% topical film See Instructions, Topically Daily- apply 1 patch to right shoulder and 1 to right knee daily. remove patches after 12 hours, # 60 patch, 2 Refills, Maintenance, 06/27/20 15:26:00 EDT, [facility] Partial fill upon patient reques... Start [...] 2 Refills, Maintenance, 06/27/20 15:24:00 EDT, Tablet, [facility], Partial fill upon patient request [...] 0 Refills, Maintenance, 07/16/20 16:29:00 EDT, Capsule, [facility]/pharmacy #[id number], Partial fill upon patient request if the prescription is for a schedule II opioid drug., 175, cm,... Start Date: 07/16/20 Stop Date: 07/30/20 Status: Ordered Pen [place], 30 G x 8 mm BD Ultra [...] 06/27/20 15:28:00 EDT, Route to Pharmacy Electronically, [facility], 175, cm, 06/27/20 3:49:00 EDT, [...]
--- OUTSIDE RECORDS SUMMARY | 2023-04-10 14:16 | XMS_ITS | Continuity of Care Document ---
Author Name Unknown Organization [facility] Sudhakar lt Address [address] [place] [address]- Care Team Providers Care Certified Welding Inspector Name Role Phone Otf Zelaya MD Primary Care Physician [place] [facility] [place]21 [facility] Adult [address] [place] [address]- Allergies, Adverse Reactions, Alerts Substance Reaction Severity [...] 04/22/21 8:20:00 EST, Route to Pharmacy Electronically, [facility]/pharmacy #[id number], 175, cm, 04/22/21 8:02:00 EST, Height, 88.5, kg, 04/11/21 0:05:00 EST, Dry Weight Start Date: 04/22/21 Status: Ordered metFORMIN 500 mg oral tablet 1 tablet = 500 mg, By Mouth, 2 times a day, # 180 tablet, 1 Refills, Maintenance, 04/22/21 8:22:00 EST, Tablet, [facility]/pharmacy #[id number], Partial fill upon patient request [...] tablet, 0 Refills, Maintenance, 06/11/21 10:00:00 EDT, [facility]/pharmacy #[id number], 175, cm, 05/08/... Start Date: 06/11/21 [...] 1 Refills, Maintenance, 04/22/21 8:20:00 EST, Tablet, [facility]/pharmacy #[id number], Partial fill upon patient request if the prescription is for a schedule II opioid drug., 175, cm, 04/22/21 8:02:00 EST,... Start Date: 04/22/21 Status: Ordered Ventolin HFA 108 mcg/inh inhalation aerosol with adapter 2 puffs, Inhalation, 4 times a day, PRN for wheezing, # 8 Gm, 11 Refills, Maintenance, 04/22/21 8:20:00 EST, Aerosol, [facility]/pharmacy #[id number], 175, cm, 04/22/21 8:02:00 EST, [...]
--- OUTSIDE RECORDS SUMMARY | 2023-04-10 14:16 | XMS_ITS | Continuity of Care Document ---
Author Name Unknown Organization [facility] Sudhakar lt Address [address] [place] [address]- Care Team Providers Care Machine Taper Name Role Phone Nathalie ARAGON, Otf Del Rosario Primary Care Physician [phone] Encounter [facility] Date(s): 06/30/22 - 07/30/22 [facility] Adult [address] [place] [address]- Allergies, Adverse Reactions, Alerts Substance Reaction Severity Status ibuprofen ANAPHYLAXIS Active aspirin anaphylaxis Severe Active Flomax Active Immunizations Given and Recorded Vaccine Date Status Refusal Reason influenza virus vaccine, inactivated 12/05/21 Give n SARS-CoV-2 (COVID-19) mRNA BNT-162b2 vac 1 05/08/21 [...] EDT, Supply Start Date: 06/27/20 Status: Ordered allopurinol 300 mg oral tablet 300 mg, 1, tablet, By Mouth, Daily, # 90 tablet, Refills 3, Tot. Refills 3, Maintenance, 04/02/22 16:14:00 EST, Route to Pharmacy Electronically, [facility]/pharmacy #[id number], Partial fill upon patient requestif the prescription is for a schedule II opioid charo... Start Date: 04/02/22 Status: Ordered aspirin 81 mg oral delayed release tablet 81 mg, 1, tablet, By Mouth, Daily, Do not crush, chew, or split, # 90 tablet, Refills 1, Tot. Refills 1, Maintenance, 04/22/21 8:20:00 EST, Route to Pharmacy Electronically, [facility]/pharmacy #[id number], Partial fill upon patient request if the prescription is... Start Date: 04/22/21 Status: Ordered atorvastatin 10 mg oral tablet 1 tablet, By Mouth, Daily, # 90 tablet, 3 Refills, Maintenance, 12/04/21 15:40:00 EDT, [facility]/pharmacy#[id number], 175, cm, 12/04/21 15:07:00 EDT, Height, 88.5, kg, 04/11/21 0:05:00 EST, Dry Weight Start Date: 12/04/21 Status: Ordered Cardizem CD 120 mg/24 hours oral capsule, extended release 120 mg, 1, capsule, By Mouth, Daily, # 90 capsule, Refills 3, Tot. Refills 3, Maintenance, 05/03/2309:46:00 EST, Route to Pharmacy Electronically, [facility]/pharmacy #[id number], Partial fill upon patient request if the prescription is for a schedule II opioid d... Start Date: 05/03/22 Stop Date: 04/28/23 Status: Ordered fluticasone 50 mcg/inh nasal spray See Instructions, USE 2 SPRAYS IN EACH NOSTRIL DAILY, # 48 mL, 3 Refills, [id number], 90, USE 2 SPRAYS IN EACH NOSTRIL DAILY, 175, cm, 08/12/21 14:14:00 EDT, Height, 88.5, kg, 04/11/21 0:05:00 EST, Dry Weight Start Date: 09/12/21 Status: Ordered gabapentin 100 mg oral capsule 100 mg, 1, capsule, By Mouth, 3 times a day, # 270 capsule, Refills 3, Tot. Refills 3, Maintenance,03/28/22 11:23:00 EST, [facility] to Pharm[facility]ically[id number] Partial fill upon patient request if the prescription is for a schedule II... Start Date: 03/28/22 Status: Ordered metFORMIN 500 mg oral tablet 1 tablet, By Mouth, 2 times a day, # 180 tablet, 3 Refills, Maintenance, 12/04/21 15:40:00 EDT, [facility]/pharmacy #[id number], 175, cm, 12/04/21 15:07:00 EDT, Height, 88.5, kg, 04/11/21 0:05:00 EST, Dry Weight Start Date: 12/04/21 Status: Ordered Metoprolol Tartrate 25 mg oral tablet 0.5 tablet, By Mouth, 2 times a day, # 90 tablet, 3 Refills, Maintenance, 11/29/22 15:20:00 EDT, [facility]/pharmacy #[id number], 175, cm, 12/04/21 15:07:00 EDT, Height, 88.5, kg, 04/11/21 0:05:00 EST, Dry Weight Start Date: 11/29/22 Stop Date: 11/24/23 Status: Ordered nitroglycerin 0.4 mg sublingual tablet 1 tablet, By Mouth, Every 5 minutes, PRN NEEDED FOR MODERATE CHEST PAIN (NOT TO EXCEED 3 DOSES/15 MINUTES, IF PAIN PERSISTS, SEEK MEDICATION ATTENTION), # 25 tablet, 0 Refills, Maintenance, 06/11/21 10:00:00 EDT, [facility]/pharmacy #[id number], 175, cm, 05/08/... Start Date: 06/11/21 [...] Dry Weight Start Date: 04/23/21 Status: Ordered Sling See Instructions, # 1 each, Maintenance, Right arm sling for severe gout right wrist., 07/24/21 10:31:00 EDT, Supply Start Date: 07/24/21 Status: Ordered ticagrelor 90 mg oral tablet 1 tablet = 90 mg, By Mouth, 2 times a day, # 180 tablet, 1 Refills, Maintenance, 12/04/21 15:41:00 EDT, Tablet, [id number], Partial fill upon patient request if the prescription is for a schedule II opioid drug., 175, cm, 12/04/21 15:07:00 EDT... Start Date: 12/04/21 Status: Ordered Ventolin HFA 108 mcg/inh inhalation [...] Daily, # 90 tablet, 3 Refills, Maintenance, 12/04/21 15:40:00 EDT, [id number], 175, cm, 12/04/21 15:07:00 EDT, Height, 88.5, kg, 04/11/21 0:05:00 EST, Dry Weight Start Date: 12/04/21 Status: Ordered Problem List Condition Confirmation Course Effective Dates Status Health Status Informant Adenomatous polyposis coli 1 Confirmed Active Allergic Rhinitis Confirmed Active Asthma Confirmed Active BPH (benign prostatic hypertrophy) Confirmed Active CAD (coronary artery disease) Confirmed Active Chronic hepatitis C Confirmed Active Chronic kidney disease, stage 3b 2 Confirmed Active CS (cervical spondylosis) Confirmed Active Diabetes mellitus, type II Confirmed Active History of gout Confirmed Active History of ST elevation myocardial infarction Confirmed Active HTN (hypertension) Confirmed Active Hypercholesterolemia Confirmed Active Erectile dysfunction Confirmed Active Left knee injury Confirmed Active Arthralgia Confirmed Active Knee pain, bilateral Confirmed Active Diabetic neuropathy, type II diabetes mellitus Confirmed Active Obese class I Confirmed Active S/p CABG (coronary artery bypass graft) Confirmed Active 1colonoscopy 2004 positive polyp, repeat 2007 2Per chart review meeting GFR criteria Social History Social History Type Response Smoking Status Former smoker; Other : Quit smoking age 44; entered on: 08/22/15 Sex Patient Care team information Care Team Personnel Name: Patti Mcdonald RN Position: [facility] RN Member Role: Primary Care Nurse Name: Sherly Ireland NP Position: [facility] Associate Professional Member Role: Primary Care Nurse Address: Address: [address] [place] [id number]- Name: Cathie Barth RN Position: [facility] RN Member Role: Primary Care Nurse Name: Otf Zelaya MD Position: [facility] Physician - Primary Care Member Role: PCP Address: Address: [address] [place] [address]- Name: Tg Alcala RN Position: [facility] AMB Nurse Member Role: Primary Care Nurse Name: Daren Jung RN Position: [facility] RN Member Role: Primary Care Nurse Name: Avinash MORRIS, Gretchen Saha Position: [facility] RN Member Role: Primary Care Nurse Care Team Related Persons Name: AARTI ROMAN Address: home [address] [place] [id number] Name: NO, NONE
--- OUTSIDE RECORDS SUMMARY | 2023-04-10 14:17 | XMS_ITS | Continuity of Care Document ---
Author Name Unknown Organization [facility] Sudhakar lt Address [address] [place] [address]- Care Team Providers Care Assistant General Manager Name Role Phone Otf Zelaya MD Primary Care Physician [phone] Encounter [facility] Date(s): 03/28/22 - 04/27/22 [facility] Adult [address] [place] [address]- Allergies, Adverse Reactions, Alerts Substance Reaction Severity [...] 04/02/22 16:14:00 EST, Route to Pharmacy Electronically, [facility]/pharmacy #[id number], Partial fill upon patient requestif [...] tablet, 3 Refills, Maintenance, 12/04/21 15:40:00 EDT, [id number], 175, cm, 12/04/21 15:07:00 EDT, Height, 88.5, kg, 04/11/21 0:05:00 EST, Dry Weight Start Date: 12/04/21 Status: Ordered Cardizem CD 120 mg/24 hours oral capsule, extended release 120 mg, 1, capsule, By Mouth, Daily, # 90 capsule, Refills 3, Tot. Refills 3, Maintenance, 05/03/2309:46:00 EST, Route to Pharmacy Electronically, [facility]/pharmacy #[id number], Partial fill upon patient request if the prescription is for a schedule II opioid d... Start Date: 05/03/22 Stop Date: 04/28/23 Status: Ordered Cardizem CD 120 mg/24 hours oral capsule, extended release 120 mg, 1, capsule, By Mouth, Daily, for 90 days, # 90 capsule, Refills 3, Tot. Refills 3, Hard Stop 05/03/22 10:46:00 EST, 05/08/21 10:46:00 EST, Route to Pharmacy Electronically, [facility]/pharmacy #[id number], Partial fill upon patient request if the prescript... Start Date: 05/08/21 Stop Date: 05/03/22 Status: Ordered fluticasone 50 mcg/inh nasal spray See Instructions, USE 2 SPRAYS IN EACH NOSTRIL DAILY, # 48 mL, 3 Refills, [id number], 90, USE 2 SPRAYS IN EACH NOSTRIL DAILY, 175, cm, 08/12/21 14:14:00 EDT, Height, 88.5, kg, 04/11/21 0:05:00 EST, Dry Weight Start Date: 09/12/21 Status: Ordered gabapentin 100 mg oral capsule 100 mg, 1, capsule, By Mouth, 3 times a day, # 270 capsule, Refills 3, Tot. Refills 3, Maintenance,03/28/22 11:23:00 EST, Route to Pharmacy Electronically, [facility]/pharmacy #[id number], Partial fill upon patient request if the prescription is for a schedule II... Start Date: 03/28/22 Status: Ordered metFORMIN 500 mg oral tablet 1 tablet, By Mouth, 2 times a day, # 180 tablet, 3 Refills, Maintenance, 12/04/21 15:40:00 EDT, [facility]/pharmacy #[id number], 175, cm, 12/04/21 15:07:00 EDT, Height, 88.5, kg, 04/11/21 0:05:00 EST, Dry Weight Start Date: 12/04/21 Status: Ordered Metoprolol Tartrate 25 mg oral tablet 0.5 tablet, By Mouth, 2 times a day, # 90 tablet, 3 Refills, Maintenance, 11/29/22 15:20:00 EDT, [facility]/pharmacy #[id number], 175, cm, 12/04/21 15:07:00 EDT, Height, 88.5, kg, 04/11/21 0:05:00 EST, Dry Weight Start Date: 11/29/22 Stop Date: 11/24/23 Status: Ordered Metoprolol Tartrate 25 mg oral tablet 0.5 tablet, By Mouth, 2 times a day, for 90 days, # 90 tablet, 3 Refills, Hard Stop 11/29/22 15:20:00 EDT, 12/04/21 15:20:00 EDT, [facility]/pharmacy #[id number], 175, cm, 12/04/21 15:07:00 EDT, Height, 88.5, kg,04/11/21 0:05:00 EST, Dry Weight Start Date: 12/04/21 Stop Date: 11/29/22 Status: Ordered nitroglycerin 0.4 mg sublingual tablet 1 tablet, By Mouth, Every 5 minutes, PRN NEEDED FOR MODERATE CHEST PAIN (NOT TO EXCEED 3 DOSES/15 MINUTES, IF PAIN PERSISTS, SEEK MEDICATION ATTENTION), # 25 tablet, 0 Refills, Maintenance, 06/11/21 10:00:00 EDT, [facility]/pharmacy #[id number], 175, cm, ... Start Date: 06/11/21 [...] 1 Refills, Maintenance, 12/04/21 15:41:00 EDT, Tablet, [facility]/pharmacy #[id number], Partial fill upon patient request if the prescription is for a schedule II opioid drug., 175, cm, 12/04/21 15:07:00 EDT... Start Date: 12/04/21 Status: Ordered Ventolin HFA 108 mcg/inh inhalation aerosol with adapter 2 puffs, Inhalation, 4 times a day, PRN for wheezing, # 8 Gm, 11 Refills, Maintenance, 04/22/21 8:20:00 EST, Aerosol, [facility]/pharmacy #[id number], 175, cm, 04/22/21 8:02:00 EST, Height, 88.5, kg, 04/11/21 0:05:00 EST, Dry Weight Start Date: 04/22/21 Status: Ordered Zetia 10 mg oral tablet 1 tablet = 10 mg, By Mouth, Daily, # 90 tablet, 3 Refills, Maintenance, 12/04/21 15:40:00 EDT, [facility]/pharmacy #[id number], 175, cm, 12/04/21 15:07:00 EDT, [...] Team Personnel Name: Patti Mcdonald RN Position: [facility] RN Member Role: Primary Care Nurse Name: Sherly Ireland NP Position: [facility] Associate Professional Member Role: Primary Care Nurse Address: Address: [address] [place] [phone]- [place] Name: Cathie Barth RN Position: [facility] RN Member Role: Primary Care Nurse Name: Otf Zelaya MD Position: [facility] Primary Care Physician Member Role: PCP Address: Address: [address] [place] [id number]- [place] Name: Tg Alcala RN Position: [facility] AMB Nurse Member Role: Primary Care Nurse Name: Daren Jung RN Position: [facility] RN Member Role: Primary Care Nurse Name: Gretchen Da Silva RN Position: [facility] RN Member Role: Primary Care Nurse Care Team Related Persons Name: AARTI ROMAN Address: home [address] [place] [id number] Name: NO, NONE
--- OUTSIDE RECORDS SUMMARY | 2023-04-10 14:17 | XMS_ITS | Continuity of Care Document ---
Author Name Unknown Organization [facility] Sudhakar lt Address [address] [place] [address]- Care Team Providers Care Naprapath Name Role Phone Otf Zelaya MD Primary Care Physician [phone] Encounter [facility] Date(s): 07/11/20 - 08/10/20 [facility] Adult [address] [place] [address]- Allergies, Adverse Reactions, Alerts Substance Reaction Severity [...] 06/27/20 15:24:00 EDT, Route to Pharmacy Electronically, [facility], Partial fill uponpatient request if the prescription is for a schedu... Start Date: 06/27/20 Status: Ordered lidocaine 4% topical film 1 patch, Topically, Daily, do not leave patch on for more than 8 hours at a time Apply to Right shoulder and Rt knee, # 60 patch, 0 Refills, Maintenance, 06/27/20 15:56:00 EDT, Film, [facility], Partial fill upon patient request if the... Start Date: 06/27/20 Status: Ordered lidocaine 5% topical film See Instructions, Topically Daily- apply 1 patch to right shoulder and 1 to right knee daily. remove patches after 12 hours, # 60 patch, 2 Refills, Maintenance, 06/27/20 15:26:00 EDT, [facility], [facility], Partial fill upon patient reques... Start [...] 2 Refills, Maintenance, 06/27/20 15:24:00 EDT, Tablet, [facility], Partial fill upon patient request [...] 0 Refills, Maintenance, 07/16/20 16:29:00 EDT, Capsule, [facility]/pharmacy #[id number], Partial fill upon patient request if the prescription is for a schedule II opioid drug., 175, cm,... Start Date: 07/16/20 Stop Date: 07/30/20 Status: Ordered Pen [place], 30 G x 8 mm BD Ultra [...] 06/27/20 15:28:00 EDT, Route to Pharmacy Electronically, [facility], 175, cm, 06/27/20 3:49:00 EDT, [...]
--- OUTSIDE RECORDS SUMMARY | 2023-04-10 14:17 | XMS_ITS | Continuity of Care Document ---
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 Refills 6, Maintenance, Please use as directed to administer insulin SQ daily for DM2 E11.9 REFAXED, 07/24/15 13:47:37, Compound Start Date: 07/24/15 Status: Ordered Plavix 75 mg oral tablet 75 mg, 1, tablet, By Mouth, Daily, # 90 tablet, Refills 3, Tot. Refills 3, Maintenance, 04/15/19 8:56:00 EST, Route to Pharmacy Electronically, [facility]/pharmacy #[id number], 165, cm, 04/15/19 8:45:00 EST, Height, 80, kg, 03/23/18 18:39:00 EST, Dry Weight Start Date: 04/15/19 Status: Ordered Singulair 10 mg oral tablet 10 mg, 1, tablet, By Mouth, Daily, # 90 tablet, Refills 3, Tot. Refills 3, Maintenance, 04/15/19 9:15:00 EST, Route to Pharmacy Electronically, [facility]/pharmacy #[id number], 165, cm, 04/15/19 8:45:00 EST, Height, 80, kg, 03/23/18 18:39:00 EST, Dry Weight Start Date: 04/15/19 Stop Date: 04/09/20 Status: Ordered Soft Click Lancets See Instructions, # 60 each, Refills 6, Tot. Refills 6, Maintenance, Please use as directed to testBS's BID for DM2 E11.9, 04/06/15 15:06:48, Compound Start Date: 04/06/15 Status: Ordered Ventolin HFA 108 mcg/inh inhalation aerosol with adapter 2 puffs, Inhalation, 4 times a day, PRN for wheezing, # 8 Gm, 0 Refills, Maintenance, 10/13/18 14:14:37 EDT, Aerosol Start Date: 10/13/18 Status: Ordered Viagra 50 mg oral tablet 1 tablet = 50 mg, By Mouth, Daily, 1 hour before sexual activity, # 30 tablet, 5 Refills, Maintenance, 04/15/19 9:16:00 EST, Tablet, [facility], 165, cm, 04/15/19 8:45:00 EST, Height, 80, kg, 03/23/18 18:39:00 EST, Dry Weight Start Date: 04/15/19 Status: Ordered Zestril 20 mg oral tablet 20 mg, 1, tablet, By Mouth, Daily, # 90 tablet, Refills 3, Tot. Refills 3, Maintenance, 04/15/19 8:56:00 EST, Route to Pharmacy Electronically, [facility]/pharmacy #[id number], 165, cm, 04/15/19 8:45:00 EST, Height, 80, kg, 03/23/18 18:39:00 EST, Dry Weight Start Date: 04/15/19 Status: Ordered Zetia 10 mg oral tablet 1 tablet = 10 mg, By Mouth, Daily, # 90 tablet, 3 Refills, Maintenance, 04/15/19 8:56:00 EST, [facility]/pharmacy #[id number], 165, cm, 04/15/19 8:45:00 EST, Height, 80, kg, 03/23/18 18:39:00 EST, Dry Weight Start Date: 04/15/19 Status: Ordered Problem List Condition Effective Dates [...]
--- OUTSIDE RECORDS SUMMARY | 2023-04-10 14:17 | XMS_ITS | Continuity of Care Document ---
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 Use for ambulation 1 [...] 10:22:14, Compound Start Date: 07/25/15 Status: Ordered aspirin 81 mg oral delayed release tablet 81 mg, 1, tablet, By Mouth, Daily, Do not crush, chew, or split, # 30 tablet, Refills 0, Tot. Refills 0, Maintenance, 04/12/21 13:28:00 EST, Route to Pharmacy Electronically, [facility], Partial fill upon patient request if the prescript... Start Date: 04/12/21 Status: Ordered Flonase Sensimist 27.5 mcg/inh nasal spray 1 sprays, Nares, Both, Daily, PRN Nasal Congestion, Maintenance, 06/21/20 8:35:00 EDT Start Date: 06/21/20 Status: Ordered gabapentin 100 mg oral capsule 100 mg, 1, capsule, By Mouth, 3 times a day, # 90 capsule, Refills 2, Tot. Refills 2, Maintenance, 06/27/20 15:24:00 EDT, Route to Pharmacy Electronically, [facility], Partial fill uponpatient request if the prescription is for a schedu... Start Date: 06/27/20 Status: Ordered lisinopril 20 mg oral tablet 1, tablet, By Mouth, Daily, # 90 tablet, Refills 1, Route to Pharmacy Electronically, [id number], 175, cm, 10/29/20 14:46:00 EDT, Height, 78, kg, 06/20/20 23:41:00 EDT, Dry Weight Start Date: 01/28/21 Status: Ordered metFORMIN 500 mg oral tablet TAKE 1 TABLET BY MOUTH TWO TIMES A DAY Start Date: 04/11/21 Status: Ordered metoprolol 25 mg oral tablet 12.5 mg, Tablet, By Mouth, 04/12/21 9:00:00 EST Start Date: 04/12/21 Stop Date: 04/12/21 Status: Completed metoprolol 25 mg oral tablet 12.5 mg, 0.5, tablet, By Mouth, 2 times a day, # 60 each, Refills 0, Tot. Refills 0, Maintenance, 04/12/21 12:34:00 EST, Route to Pharmacy Electronically, [facility], Partial fill upon patient request if the prescription is for a schedul... Start Date: 04/12/21 Status: Ordered nitroglycerin 0.4 mg sublingual tablet 1 tablet = 0.4 mg, Sublingual, Every 5 minutes, PRN Pain , Moderate, (not to exceed 3 doses/15 min--if pain persists, seek medical attention), # 25 tablet, 0 Refills, Maintenance, 02/10/18 9:40:43 EST Start Date: 02/10/18 Status: Ordered Pen [place], 30 G x 8 mm BD Ultra Fine II See Instructions, # 30 each, Refills 6, Tot. Refills 6, Maintenance, Please use as directed to administer insulin SQ daily for DM2 E11.9 REFAXED, 07/24/15 13:47:37, Compound Start Date: 07/24/15 Status: Ordered Soft Click Lancets See Instructions, # 60 each, Refills 6, Tot. Refills 6, Maintenance, Please use as directed to testBS's BID for DM2 E11.9, 04/06/15 15:06:48, Compound Start Date: 04/06/15 Status: Ordered ticagrelor 90 mg oral tablet 1 tablet = 90 mg, By Mouth, 2 times a day, # 60 tablet, 0 Refills, Maintenance, 04/12/21 12:33:00 EST, Tablet, [facility], Partial fill upon patient request if the prescription is for aschedule II opioid drug., 175, cm, 04/12/21 7:31:00... Start Date: 04/12/21 Status: Ordered Ventolin HFA 108 mcg/inh inhalation [...] Active 1colonoscopy 2004 positive polyp, repeat 2008 Results Radiology Reports * Exam Date Time Procedure Performing Provider Status 04/10/21 5:53 PM Chest 2 Views Frontal and Lat Cathy Acevedo; Auth (Verified) Notes: (Chest 2 Views Frontal and Lat) Reason For Exam: Chest Pain;Other: RESULT: Chest 2 Views Frontal and Lat Chest 2 Views Frontal and Lat Hx of Present Illness: Patient arrives with CP x2 days. Reason: Chest Pain; Clinical Question(s): CHF COMPARISON: June 20, 2020 FINDINGS: LINES AND TUBES: None. LUNGS AND PLEURA: Low lung volumes with biapical scarring and bibasilar atelectasis. The pulmonary vascularity is normal. No effusion or pneumothorax. HEART, MEDIASTINUM AND NAHEED: The cardiac silhouette is stable and upper limits of normal. BONES AND SOFT TISSUES: No acute abnormality. Stable median sternotomy and chronic changes. IMPRESSION: Low lung volumes with bibasilar atelectasis. WSN: [id number] Ordering Physician: Wanda Najera Dictated By: Garrick Lee MD Dictated Date/Time: 04/10/21 6:01 pm Reviewed By: Garrick Lee MD Signed By: Garrick Lee MD Signed Date/Time: 04/10/21 6:01 pm Transcribed By: JAREN Transcribed Date/Time: 04/10/21 5:58 pm Vital Signs Most recent to oldest [Reference Range]: 1 2 3 Height 175 cm (04/12/21 7:31 AM) 175 cm (04/12/21 2:52 AM) 175 cm (04/11/21 7:38 PM) Weight 88.5 kg (04/11/21 12:05 AM) Oxygen Saturation [94-100 %] 97 % (04/12/21 7:31 AM) 96 % (04/12/21 2:52 AM) 96 % (04/11/21 7:38 PM) Pulse Rate [55-90 bpm] 74 bpm (04/12/21 8:24 AM) 74 bpm (04/12/21 7:31 AM) 83 bpm (04/12/21 2:52 AM) Body Mass Index [18.5-24.99] 28.9 *H* (04/11/21 12:05 AM) Blood Pressure [90-138/55-84 mm Hg] 121/59mm Hg (04/12/21 8:24 AM) 121/59mm Hg (04/12/21 7:31 AM) 112/61mm Hg (04/12/21 2:52 AM) Respiratory Rate [16-30 br/min] 18 br/min (04/12/21 7:31 AM) 20 br/min (04/12/21 2:52 AM) 20 br/min (04/11/21 7:38 PM) Temperature [96.8-100.4 DegF] 97.7 DegF (04/12/21 7:31 AM) 97.3 DegF (04/12/21 2:52 AM) 97.8 DegF (04/11/21 7:38 PM) Liters per Minute 2 L/min (04/11/21 7:00 AM) 2 L/min (04/11/21 6:00 AM) 2 L/min (04/11/21 5:00 AM) Mode of Delivery (Oxygen) Room air (04/12/21 7:31 AM) Room air (04/12/21 2:52 AM) Room air (04/11/21 7:38 PM) Blood pressure sites Arm, left (04/12/21 7:31 AM) Arm, left (04/12/21 2:52 AM) Arm, left (04/11/21 7:38 PM) Temperature Route Temporal (04/12/21 7:31 AM) Temporal (04/12/21 2:52 AM) Temporal (04/11/21 7:38 PM) Dry Weight 88.5 kg (04/11/21 12:05 AM) Social History Social History Type Response Smoking Status Former smoker; Other : Quit smoking age 44; entered on: 08/22/15 Sex
--- OUTSIDE RECORDS SUMMARY | 2023-04-10 14:17 | XMS_ITS | Continuity of Care Document ---
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 Start Date: 06/27/20 Status: Ordered lidocaine 4% topical film 1 patch, Topically, Daily, do not leave patch on for more than 8 hours at a time Apply to Right shoulder and Rt knee, # 60 patch, 0 Refills, Maintenance, 06/27/20 15:56:00 EDT, Film, [facility], Partial fill upon patient request if the... Start Date: 06/27/20 Status: Ordered lidocaine 5% topical film See Instructions, Topically Daily- apply 1 patch to right shoulder and 1 to right knee daily. remove patches after 12 hours, # 60 patch, 2 Refills, Maintenance, 06/27/20 15:26:00 EDT, [facility], Partial fill upon patient reques... Start [...] 2 Refills, Maintenance, 06/27/20 15:24:00 EDT, Tablet, [facility], Partial fill upon patient request [...] 1 capsule = 5 mg, By Mouth, Every 8 hours, PRN Pain , Moderate, # 20 capsule, 0 Refills, Maintenance, 06/27/20 15:23:00 EDT, Capsule, [facility], Partial fill upon patient request if the prescription is for a schedule II opioid drug., 17... Start Date: 06/27/20 Status: Ordered Pen [place], 30 G x 8 mm BD Ultra [...] 06/27/20 15:28:00 EDT, Route to Pharmacy Electronically, [facility], 175, cm, 06/27/20 3:49:00 EDT, [...]
--- OUTSIDE RECORDS SUMMARY | 2023-04-10 14:17 | XMS_ITS | Continuity of Care Document ---
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/pharmacy #[id number], Partial fill upon patient requestif the prescription is for a schedule II opioid charo... Start Date: 04/02/22 Status: Ordered aspirin 81 mg oral delayed release tablet 81 mg, 1, tablet, By Mouth, Daily, Do not crush, chew, or split, # 90 tablet, Refills 1, Tot. Refills 1, Maintenance, 04/22/21 8:20:00 EST, Route to Pharmacy Electronically, [facility]/pharmacy #[id number], Partial fill upon patient request if the prescription is... Start Date: 04/22/21 Status: Ordered atorvastatin 10 mg oral tablet 1 tablet, By Mouth, Daily, # 90 tablet, 3 Refills, Maintenance, 12/04/21 15:40:00 EDT, [facility]/pharmacy#[id number], 175, cm, 12/04/21 15:07:00 EDT, Height, 88.5, kg, 04/11/21 0:05:00 EST, Dry Weight Start Date: 12/04/21 Status: Ordered Cardizem CD 120 mg/24 hours oral capsule, extended release 120 mg, 1, capsule, By Mouth, Daily, # 90 capsule, Refills 3, Tot. Refills 3, Maintenance, 05/03/2309:46:00 EST, Route to Pharmacy Electronically, [facility]/pharmacy #[id number], Partial fill upon patient [...] 05/08/21 10:46:00 EST, Route to Pharmacy Electronically, [facility]/pharmacy #[id number], Partial fill upon patient request if the prescript... Start Date: 05/08/21 Stop Date: 05/03/22 Status: Ordered fluticasone 50 mcg/inh nasal spray See Instructions, USE 2 SPRAYS IN EACH NOSTRIL DAILY, # 48 mL, 3 Refills, [id number], 90, USE 2 SPRAYS IN EACH NOSTRIL DAILY, 175, cm, 08/12/21 14:14:00 EDT, Height, 88.5, kg, 04/11/21 0:05:00 EST, Dry Weight Start Date: 09/12/21 Status: Ordered gabapentin 100 mg oral capsule 100 mg, 1, capsule, By Mouth, 3 times a day, # 270 capsule, Refills 3, Tot. Refills 3, Maintenance,03/28/22 11:23:00 EST, Route to Pharmacy Electronically, [facility]/pharmacy #[id number], Partial fill upon patient request if the prescription is for a schedule II... Start Date: 03/28/22 Status: Ordered metFORMIN 500 mg oral tablet 1 tablet, By Mouth, 2 times a day, # 180 tablet, 3 Refills, Maintenance, 12/04/21 15:40:00 EDT, [facility]/pharmacy #[id number], 175, cm, 12/04/21 15:07:00 EDT, Height, 88.5, kg, 04/11/21 0:05:00 EST, Dry Weight Start Date: 12/04/21 Status: Ordered Metoprolol Tartrate 25 mg oral tablet 0.5 tablet, By Mouth, 2 times a day, # 90 tablet, 3 Refills, Maintenance, 11/29/22 15:20:00 EDT, [facility]/pharmacy #[id number], 175, cm, 12/04/21 15:07:00 EDT, Height, 88.5, kg, 04/11/21 0:05:00 EST, Dry Weight Start Date: 11/29/22 Stop Date: 11/24/23 Status: Ordered Metoprolol Tartrate 25 mg oral tablet 0.5 tablet, By Mouth, 2 times a day, for 90 days, # 90 tablet, 3 Refills, Hard Stop 11/29/22 15:20:00 EDT, 12/04/21 15:20:00 EDT, [facility]/pharmacy #[id number], 175, cm, 12/04/21 15:07:00 EDT, Height, 88.5, kg,04/11/21 0:05:00 EST, Dry Weight Start Date: 12/04/21 Stop Date: 11/29/22 Status: Ordered nitroglycerin 0.4 mg sublingual tablet 1 tablet, By Mouth, Every 5 minutes, PRN NEEDED FOR MODERATE CHEST PAIN (NOT TO EXCEED 3 DOSES/15 MINUTES, IF PAIN PERSISTS, SEEK MEDICATION ATTENTION), # 25 tablet, 0 Refills, Maintenance, 06/11/21 10:00:00 EDT, [facility]/pharmacy #[id number], 175, cm, ... Start [...] arm sling for severe gout right wrist., 05/18/22 10:31:00 EDT, Supply Start Date: 07/24/21 Status: [...] smoking age 44; entered on: 08/22/15 Sex EKG study * Event Display: EKG Authored Date: Note * Event Display: Non BH Lab Results Authored Date: * Event Display: Non BH Lab Results Authored Date: * Richa Cueto: PERFORM Event Display: Laboratory Results Scanned Authored Date: * Fior Felix: PERFORM Event Display: Radiology Results Scanned Authored Date: * Patti Ivey: PERFORM Event Display: Cardiovascular Results Scanned Authored Date: Patient Care team information Care Team Personnel Name: Patti Mcdonald RN Position: [facility] RN Member Role: Primary Care Nurse Name: Shu TURCIOS, Sherly Ashley Position: [facility] Associate Professional Member Role: Primary Care Nurse Address: Address: [address] [place] [phone]- [place] Name: Cathie Barth RN Position: [facility] RN Member Role: Primary Care Nurse Name: Otf Zelaya MD Position: [facility] Primary Care Physician Member Role: PCP Address: Address: [address] [place] [phone]- [place] Name: Tg Alcala RN Position: [facility] AMB Nurse Member Role: Primary Care Nurse Name: Daren Jung RN Position: [facility] RN Member Role: Primary Care Nurse Name: Gretchen Da Silva RN Position: [facility] RN Member Role: Primary Care Nurse Care Team Related Persons Name: AARTI ROMAN Address: home [address] [place] [id number] Name: NO, NONE
--- OUTSIDE RECORDS SUMMARY | 2023-04-10 14:17 | XMS_ITS | Continuity of Care Document ---
Author Name Unknown Organization [facility] Sudhakar lt Address [address] [place] [address]- Care Team Providers Care Site Technician Name Role Phone Otf Zelaya MD Primary Care Physician Encounter [facility] Date(s): 04/18/20 - 04/25/20 [facility] Adult [address] [place] [address]- Attending Physician: Otf Zelaya MD Allergies, Adverse [...] EST Start Date: 02/10/18 Status: Ordered Pen [place], 30 G x 8 mm BD Ultra [...] 11 Refills, Maintenance, 04/18/20 9:32:00 EST, Aerosol, [facility]/pharmacy #[id number], 165, cm, 04/18/20 9:20:00 EST, Height Start Date: 04/18/20 Status: Ordered Viagra 50 mg oral tablet 1 tablet = 50 mg, By Mouth, Daily, 1 hour before sexual activity, # 30 tablet, 5 Refills, Maintenance, 04/18/20 9:33:00 EST, Tablet, [facility]/pharmacy #[id number], 165, cm, 04/18/20 9:20:00 EST, Height Start Date: 04/18/20 Status: Ordered Zestril 20 mg oral tablet 20 mg, 1, tablet, By Mouth, Daily, # 90 tablet, Refills 3, Tot. Refills 3, Maintenance, 01/20/20 8:52:00 EST, Route to Pharmacy Electronically, [facility]/pharmacy #[id number], 165, cm, 10/14/19 9:03:00 EDT, Height, 80, kg, 03/23/18 18:39:00 EST, Dry Weight Start Date: 01/20/20 Status: Ordered Zetia 10 mg oral tablet 1 tablet = 10 mg, By Mouth, Daily, # 90 tablet, 3 Refills, Maintenance, 01/20/20 8:52:00 EST, [facility]/pharmacy #[id number], 165, cm, 10/14/19 9:03:00 EDT, [...] Active 1colonoscopy 2004 positive polyp, repeat 2007 Vital Signs Most recent to oldest [Reference Range]: 1 Height 165 cm (04/18/20 9:20 AM) Weight 84.1 kg (04/18/20 9:20 AM) Oxygen Saturation [94-100 %] 97 % (04/18/20 9:20 AM) Pulse Rate [55-90 bpm] 81 bpm (04/18/20 9:20 AM) Body Mass Index [18.5-24.99] 30.89 *>HHI* (04/18/20 9:20 AM) Blood Pressure [90-138/55-84 mm Hg] 136/ 84mm Hg (04/18/20 9:20 AM) Mode of Delivery (Oxygen) Room air (04/18/20 9:20 AM) Blood pressure sites Arm, left (04/18/20 9:20 AM) Weight Obtained Via Standing scale (04/18/20 9:20 AM) Social History Social History Type Response Smoking Status Former smoker; Other : Quit smoking age 44; entered on: 08/22/15 Sex
--- OUTSIDE RECORDS SUMMARY | 2023-04-10 14:17 | XMS_ITS | Continuity of Care Document ---
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 Refills 3, Maintenance, 01/20/20 8:52:00 EST, Route to Pharmacy Electronically, [facility]/pharmacy #[id number], 165, cm, 10/14/19 9:03:00 EDT, Height, 80, kg, 03/23/18 18:39:00 EST, Dry Weight Start Date: 01/20/20 Status: Ordered Zetia 10 mg oral tablet 1 tablet = 10 mg, By Mouth, Daily, # 90 tablet, 3 Refills, Maintenance, 01/20/20 8:52:00 EST, [facility]/pharmacy #[id number], 165, cm, 10/14/19 9:03:00 EDT, [...] oldest [Reference Range]: 1 Height 165 cm (05/21/20 4:10 PM) Social History Social History Type Response Smoking Status Former smoker; Other : Quit smoking age 44; entered on: 08/22/15 Sex
--- OUTSIDE RECORDS SUMMARY | 2023-04-10 14:17 | XMS_ITS | Continuity of Care Document ---
Author Name Unknown Organization [facility] Sudhakar lt Address [address] [place] [address]- Care Team Providers Care Automotive Sales Manager Name Role Phone Nathalie ARAGON, Otf Del Rosario Primary Care Physician Encounter [facility] Date(s): 03/06/23 - 04/05/23 [facility] Adult [address] [place] [address]- Allergies, Adverse Reactions, Alerts Substance Reaction Severity [...] 03/09/04 Given tetanus-diphtheria toxoids (Td) 01/07/03 Given 1Early/Late Reason: Early/Late Reason: Other : post [...] tablet, Refills 3, Tot. Refills 3, Maintenance, 12/24/22 11:59:00 EDT, Route to Pharmacy Electronically, [facility]/pharmacy #[id number], Partial fill upon patient requestif the prescription is for a schedule II opioid charo... Start Date: 12/24/22 Status: Ordered aspirin 81 mg oral delayed release tablet 81 mg, 1, tablet, By Mouth, Daily, Do not crush, chew, or split, # 90 tablet, Refills 1, Tot. Refills 1, Maintenance, 04/22/21 8:20:00 EST, Route to Pharmacy Electronically, [facility]/pharmacy #[id number], Partial fill upon patient request if the prescription is... Start Date: 04/22/21 Status: Ordered atorvastatin 10 mg oral tablet 1 tablet, By Mouth, Daily, # 90 tablet, 3 Refills, Maintenance, 12/24/22 11:59:00 EDT, [facility]/pharmacy#[id number], 175, cm, 12/24/22 11:31:00 EDT, Height, 88.5, kg, 04/11/21 0:05:00 EST, Dry Weight Start Date: 12/24/22 Status: Ordered betamethasone topical valerate 0.1% cream 1 application, Topically, 2 times a day, # 45 Gm, 1 Refills, Maintenance, 03/25/23 16:46:00 EST, Cream, [facility]/pharmacy #[id number], Partial fill upon patient request if the prescription is for a schedule II opioid drug., 1 application Topically 2 times a day,... Start Date: 03/25/23 Status: Ordered Cardizem CD 120 mg/24 hours oral capsule, extended release 120 mg, 1, capsule, By Mouth, Daily, # 90 capsule, Refills 3, Tot. Refills 3, Maintenance, 12/24/2310:59:00 EDT, Route to Pharmacy Electronically, [facility]/pharmacy #[id number], Partial fill upon patient request if the prescription is for a schedule II opioid d... Start Date: 12/24/22 Status: Ordered fluticasone 50 mcg/inh nasal spray See Instructions, USE 2 SPRAYS IN EACH NOSTRIL DAILY, # 48 mL, 11 Refills, 12/24/22 11:59:00 EDT, [facility]/pharmacy #[id number], 90, USE 2 SPRAYS IN EACH NOSTRIL DAILY, 175, cm, 12/24/22 11:31:00 EDT, Height, 88.5, kg, 04/11/21 0:05:00 EST, Dry Weight Start Date: 12/24/22 Status: Ordered gabapentin 100 mg oral capsule 100 mg, 1, capsule, By Mouth, 3 times a day, # 270 capsule, Refills 3, Tot. Refills 3, Maintenance,12/24/22 11:59:00 EDT, Route to Pharmacy Electronically, [facility]/pharmacy #[id number], Partial fill upon patient request if the prescription is for a schedule II... Start Date: 12/24/22 Status: Ordered metFORMIN 500 mg oral tablet 1 tablet, By Mouth, 2 times a day, # 180 tablet, 3 Refills, Maintenance, 12/24/22 11:59:00 EDT, [facility]/pharmacy #[id number], 175, cm, 12/24/22 11:31:00 EDT, Height, 88.5, kg, 04/11/21 0:05:00 EST, Dry Weight Start Date: 12/24/22 Status: Ordered Metoprolol Tartrate 25 mg oral tablet 0.5 tablet, By Mouth, 2 times a day, # 90 tablet, 3 Refills, Maintenance, 12/24/22 11:59:00 EDT, [facility]/pharmacy #[id number], 175, cm, 12/24/22 11:31:00 EDT, Height, 88.5, kg, 04/11/21 0:05:00 EST, Dry Weight Start Date: 12/24/22 Stop Date: 12/19/23 Status: Ordered nitroglycerin 0.4 mg sublingual tablet 1 tablet, By Mouth, Every 5 minutes, PRN NEEDED FOR MODERATE CHEST PAIN (NOT TO EXCEED 3 DOSES/15 MINUTES, IF PAIN PERSISTS, SEEK MEDICATION ATTENTION), # 25 tablet, 0 Refills, Maintenance, 06/11/21 10:00:00 EDT, [facility]/pharmacy #[id number], 175, cm, ... Start Date: [...] EDT, Supply Start Date: 07/24/21 Status: Ordered Ventolin HFA 108 mcg/inh inhalation aerosol with adapter 2 puffs, Inhalation, 4 times a day, PRN for wheezing, # 8 Gm, 11 Refills, Maintenance, 12/24/22 11:59:00 EDT, [facility]erosol, [id number], 175, cm, 12/24/22 11:31:00 EDT, Height, 88.5, kg, 04/11/21 0:05:00 EST, Dry Weight Start Date: 12/24/22 Status: Ordered Zetia 10 mg oral tablet 1 tablet = 10 mg, By Mouth, Daily, # 90 tablet, 3 Refills, Maintenance, 12/24/22 11:59:00 EDT, [id number], 175, cm, 12/24/22 11:31:00 EDT, Height, 88.5, kg, 04/11/21 0:05:00 EST, Dry Weight Start Date: 12/24/22 Status: Ordered Problem List Condition Confirmation Course Effective Dates Status Health Status Informant Adenomatous polyposis coli 1 Confirmed Active Allergic Rhinitis Confirmed Active Asthma Confirmed Active BPH (benign prostatic hypertrophy) Confirmed Active CAD (coronary artery disease) Confirmed Active Chronic kidney disease, stage 3b 2 Confirmed Active CS (cervical spondylosis) Confirmed Active Diabetes mellitus, type II Confirmed Active History of gout Confirmed Active History of ST elevation myocardial infarction Confirmed Active History of hepatitis C Confirmed Active HTN (hypertension) Confirmed Active Hypercholesterolemia Confirmed Active Erectile dysfunction Confirmed Active Left knee injury Confirmed Active Arthralgia Confirmed Active Knee pain, bilateral Confirmed Active Diabetic neuropathy, type II diabetes mellitus Confirmed Active S/p CABG (coronary artery bypass graft) Confirmed Active Chronic stasis dermatitis Confirmed Active 1colonoscopy 2004 positive polyp, repeat 2007 2Per chart review meeting GFR criteria Social History Social History Type Response Smoking Status Former smoker; Other : Quit smoking age 44; entered on: 08/22/15 Sex Patient Care team information Care Team Personnel Name: Shu TURCIOS, Sherly Ashley Position: [facility] Associate Professional Member Role: Primary Care Nurse Address: Address: [address] [place] [phone]- Name: Cathie Barth RN Position: [facility] RN Member Role: Primary Care Nurse Name: Otf Zelaya MD Position: [facility] Physician - Primary Care Member Role: PCP Address: Address: [address] [place] [phone]- Name: Draen Jung RN Position: [facility] RN Member Role: Primary Care Nurse Name: Avinash MORRIS, Gretchen Saha Position: S RN Member Role: Primary Care Nurse Care Team Related Persons Name: AARTI ROMAN Address: home [address] [place] [address] Name: NO, NONE
--- OUTSIDE RECORDS SUMMARY | 2023-04-10 14:17 | XMS_ITS | Continuity of Care Document ---
Author Name Unknown Organization [facility] Sudhakar lt Address [address] [place] [address]- Care Team Providers Care Peoplesoft Hr Developer Name Role Phone Otf Zelaya MD Primary Care Physician Encounter [facility] Date(s): 06/16/22 - 06/23/22 [facility] Adult [address] [place] [address]- Attending Physician: Otf Zelaya MD Allergies, Adverse [...] 04/02/22 16:14:00 EST, Route to Pharmacy Electronically, [facility]/pharmacy #[id number], Partial fill upon patient requestif the prescription is for a schedule II opioid charo... Start Date: 04/02/22 Status: Ordered aspirin 81 mg oral delayed release tablet 81 mg, 1, tablet, By Mouth, Daily, Do not crush, chew, or split, # 90 tablet, Refills 1, Tot. Refills 1, Maintenance, 04/22/21 8:20:00 EST, Route to Pharmacy Electronically, [facility]/pharmacy #[id number], Partial fill upon patient request if the prescription is... Start Date: 04/22/21 Status: Ordered atorvastatin 10 mg oral tablet 1 tablet, By Mouth, Daily, # 90 tablet, 3 Refills, Maintenance, 12/04/21 15:40:00 EDT, [facility]/pharmacy#[id number], 175, cm, 12/04/21 15:07:00 EDT, Height, 88.5, kg, 04/11/21 0:05:00 EST, Dry Weight Start Date: 12/04/21 Status: Ordered Cardizem CD 120 mg/24 hours oral capsule, extended release 120 mg, 1, capsule, By Mouth, Daily, # 90 capsule, Refills 3, Tot. Refills 3, Maintenance, 05/03/2309:46:00 EST, Route to Pharmacy Electronically, [facility]/pharmacy #[id number], Partial fill upon patient request if the prescription is for a schedule II opioid d... Start Date: 05/03/22 Stop Date: 04/28/23 Status: Ordered fluticasone 50 mcg/inh nasal spray See Instructions, USE 2 SPRAYS IN EACH NOSTRIL DAILY, # 48 mL, 3 Refills, [id number], 90, USE 2 SPRAYS IN EACH NOSTRIL DAILY, 175, cm, 08/12/21 14:14:00 EDT, Height, 88.5, kg, 04/11/21 0:05:00 EST, Dry Weight Start Date: 09/12/21 Status: Ordered gabapentin 100 mg oral capsule 100 mg, 1, capsule, By Mouth, 3 times a day, # 270 capsule, Refills 3, Tot. Refills 3, Maintenance,03/28/22 11:23:00 EST, [id number] Partial fill upon patient request if the prescription is for a schedule II... Start Date: 03/28/22 Status: Ordered metFORMIN 500 mg oral tablet 1 tablet, By Mouth, 2 times a day, # 180 tablet, 3 Refills, Maintenance, 12/04/21 15:40:00 EDT, [facility]/pharmacy #[id number], 175, cm, 12/04/21 15:07:00 EDT, Height, 88.5, kg, 04/11/21 0:05:00 EST, Dry Weight Start Date: 12/04/21 Status: Ordered Metoprolol Tartrate 25 mg oral tablet 0.5 tablet, By Mouth, 2 times a day, # 90 tablet, 3 Refills, Maintenance, 11/29/22 15:20:00 EDT, [facility]/pharmacy #[id number], 175, cm, 12/04/21 15:07:00 EDT, Height, 88.5, kg, 04/11/21 0:05:00 EST, Dry Weight Start Date: 11/29/22 Stop Date: 11/24/23 Status: Ordered nitroglycerin 0.4 mg sublingual tablet 1 tablet, By Mouth, Every 5 minutes, PRN NEEDED FOR MODERATE CHEST PAIN (NOT TO EXCEED 3 DOSES/15 MINUTES, IF PAIN PERSISTS, SEEK MEDICATION ATTENTION), # 25 tablet, 0 Refills, Maintenance, 06/11/21 10:00:00 EDT, [facility]/pharmacy #[id number], 175, cm, ... Start Date: 06/11/21 [...] 2007 2Per chart review meeting GFR criteria Vital Signs Most recent to oldest [Reference Range]: 1 Height 175 cm (06/16/22 1:02 PM) Weight 89.8 kg (06/16/22 1:02 PM) Oxygen Saturation [94-100 %] 98 % (06/16/22 1:02 PM) Pulse Rate [55-90 bpm] 75 bpm (06/16/22 1:02 PM) Body Mass Index [18.5-24.99 kg/m2] 29.32 kg/m2 *H* (06/16/22 1:02 PM) Blood Pressure [90-138/55-84 mm Hg] 133/ 71mm Hg (06/16/22 1:02 PM) Respiratory Rate [16-30 br/min] 16 br/mi n (06/16/22 1:02 PM) Temperature [96.8-100.4 DegF] 97.3 DegF (06/16/22 1:02 PM) Mode of Delivery (Oxygen) Room air (06/16/22 1:02 PM) Blood pressure sites Arm, right (06/16/22 1:02 PM) Temperature Route Oral (06/16/22 1:02 PM) Weight Obtained Via Standing scale (06/16/22 1:02 PM) Social History Social History Type Response Smoking Status Former smoker; Other : Quit smoking age 44; entered on: 08/22/15 Sex Patient Care team information Care Team Personnel Name: Patti Mcdonald RN Position: [facility] RN Member Role: Primary Care Nurse Name: Shu TURCIOS, Sherly Ashley Position: [facility] Associate Professional Member Role: Primary Care Nurse Address: Address: [address] [place] [phone]- Name: Cathie Barth RN Position: [facility] RN Member Role: Primary Care Nurse Name: Otf Zelaya MD Position: [facility] Primary Care Physician Member Role: PCP Address: Address: [address] [place] [phone]- [place] Name: Tg Alcala RN Position: [facility] AMB Nurse Member Role: Primary Care Nurse Name: Daren Jung RN Position: [facility] RN Member Role: Primary Care Nurse Name: Gretchen Da Silva RN Position: [facility] RN Member Role: Primary Care Nurse Care Team Related Persons Name: AARTI ROMAN Address: home [address] [place] [phone] Name: NO, NONE
--- OUTSIDE RECORDS SUMMARY | 2023-04-10 14:17 | XMS_ITS | Continuity of Care Document ---
Author Name Unknown Organization [facility] Rell Sudhakar lt Address [address] [place] [address]- Care Team Providers Care Paint Brush Maker Name Role Phone Otf Zelaya MD Primary Care Physician [phone] Encounter [facility] Date(s): 04/02/22 - 04/09/22 [facility] Adult [address] [place] [address]- Encounter Diagnosis Diabetes mellitus, type II(Discharge Diagnosis) - 04/02/22 Chronic kidney disease, stage 3b(Discharge Diagnosis) - 04/02/22 Diabetic neuropathy, type II diabetes mellitus(Discharge Diagnosis) - 04/02/22 HTN (hypertension)(Discharge Diagnosis) - 04/02/22 History of gout(Discharge Diagnosis) - 04/02/22 Hypercholesterolemia(Discharge Diagnosis) - 04/02/22 Attending Physician: Otf Zelaya MD Allergies, Adverse [...] 04/02/22 16:14:00 EST, Route to Pharmacy Electronically, [facility]/pharmacy #[id number], Partial fill upon patient requestif the prescription is for a schedule II opioid charo... Start Date: 04/02/22 Status: Ordered aspirin 81 mg oral delayed release tablet 81 mg, 1, tablet, By Mouth, Daily, Do not crush, chew, or split, # 90 tablet, Refills 1, Tot. Refills 1, Maintenance, 04/22/21 8:20:00 EST, Route to Pharmacy Electronically, [facility]/pharmacy #[id number], Partial fill upon patient request [...] Maintenance, 05/03/2309:46:00 EST, Route to Pharmacy Electronically, [facility]/pharmacy #[id number], Partial fill upon patient request [...] 05/08/21 10:46:00 EST, Route to Pharmacy Electronically, [facility]/pharmacy #[id number], Partial fill upon patient request if the prescript... Start Date: 05/08/21 Stop Date: 05/03/22 Status: Ordered fluticasone 50 mcg/inh nasal spray See Instructions, USE 2 SPRAYS IN EACH NOSTRIL DAILY, # 48 mL, 3 Refills, [id number], 90, USE 2 SPRAYS IN EACH NOSTRIL DAILY, 175, cm, 08/12/21 14:14:00 EDT, Height, 88.5, kg, 04/11/21 0:05:00 EST, Dry Weight Start Date: 09/12/21 Status: Ordered gabapentin 100 mg oral capsule 100 mg, 1, capsule, By Mouth, 3 times a day, # 270 capsule, Refills 3, Tot. Refills 3, Maintenance,03/28/22 11:23:00 EST, Route to Pharmacy Electronically, [facility]/pharmacy #[id number], Partial fill upon patient request if the prescription is for a schedule II... Start Date: 03/28/22 Status: Ordered metFORMIN 500 mg oral tablet 1 tablet, By Mouth, 2 times a day, # 180 tablet, 3 Refills, Maintenance, 12/04/21 15:40:00 EDT, [facility]/pharmacy #[id number], 175, cm, 12/04/21 15:07:00 EDT, Height, 88.5, kg, 04/11/21 0:05:00 EST, Dry Weight Start Date: 12/04/21 Status: Ordered Metoprolol Tartrate 25 mg oral tablet 0.5 tablet, By Mouth, 2 times a day, # 90 tablet, 3 Refills, Maintenance, 11/29/22 15:20:00 EDT, [id number], 175, cm, 12/04/21 15:07:00 EDT, Height, 88.5, kg, 04/11/21 0:05:00 EST, Dry Weight Start Date: 11/29/22 Stop Date: 11/24/23 Status: Ordered Metoprolol Tartrate 25 mg oral tablet 0.5 tablet, By Mouth, 2 times a day, for 90 days, # 90 tablet, 3 Refills, Hard Stop 11/29/22 15:20:00 EDT, 12/04/21 15:20:00 EDT, [facility]/pharmacy #[id number], 175, cm, 12/04/21 15:07:00 EDT, Height, 88.5, kg,04/11/21 0:05:00 EST, Dry Weight Start Date: 12/04/21 Stop Date: 11/29/22 Status: Ordered nitroglycerin 0.4 mg sublingual tablet 1 tablet, By Mouth, Every 5 minutes, PRN NEEDED FOR MODERATE CHEST PAIN (NOT TO EXCEED 3 DOSES/15 MINUTES, IF PAIN PERSISTS, SEEK MEDICATION ATTENTION), # 25 tablet, 0 Refills, Maintenance, 06/11/21 10:00:00 EDT, [facility]/pharmacy #[id number], 175, cm, ... Start Date: [...] Confirmed Active 1colonoscopy 2004 positive polyp, repeat 2008 2Per chart review meeting GFR criteria Diagnosis Diagnosis Type Effective Dates Health Status Clinical Service Informant Diabetes mellitus, type II Discharge Diagnosis 04/02/22 Chronic kidney disease, stage 3b Discharge Diagnosis 04/02/22 Diabetic neuropathy, type II diabetes mellitus Discharge Diagnosis 04/02/22 HTN (hypertension) Discharge Diagnosis 04/02/22 History of gout Discharge Diagnosis 04/02/22 Hypercholesterolemia Discharge Diagnosis 04/02/22 Vital Signs Most recent to oldest [Reference Range]: 1 Height 175 cm (04/02/22 3:51 PM) Weight 92.1 kg (04/02/22 3:51 PM) Oxygen Saturation [94-100 %] 98 % (04/02/22 3:51 PM) Pulse Rate [55-90 bpm] 73 bpm (04/02/22 3:51 PM) Body Mass Index [18.5-24.99 kg/m2] 30.07 kg/m2 *>HHI* (04/02/22 3:51 PM) Blood Pressure [90-138/55-84 mm Hg] 120/ 64mm Hg (04/02/22 3:51 PM) Mode of Delivery (Oxygen) Room air (04/02/22 3:51 PM) Blood pressure sites Arm, left (04/02/22 3:51 PM) Weight Obtained Via Standing scale (04/02/22 3:51 PM) Social History Social History Type Response Smoking Status Former smoker; Other : Quit smoking age 44; entered on: 08/22/15 Sex Note * Bertha Owens: PERFORM, SIGN, VERIFY Event Display: Patient Education/Instruction Authored Date: [id number] [facility] *BMP So Rell Ferrera Clinical Summary Name SHAD ANGULO Age 71 Years 1950 PCP Nathalie ARAGON, Otf Del Rosario PCP Visit Date 04/02/2022 15:37:00 Additional Instructions: Scheduled Appointments?? Future Appointments ?*BMP??So??[place]ell[address]Adlt [address] ?Phone:??--?Fax:??-- ?Appt. Date:??06/13/2022?8:30 AM ?Scheduled Provider:??Otf Zelaya MD Follow-Up Instructions ?? With: Address: When: Otf Zelaya MD Comments: As scheduled Diagnosis Type 2 diabetes mellitus with diabetic neuropathy, unspecified; Chronic kidney disease, stage 3b; Pure hypercholesterolemia, unspecified; Type 2 diabetes mellitus without complications; Essential (primary) hypertension; Personal history of other diseases of the musculoskeletal system and connectivetissue Medications: Please continue your medications until treatment is completed or stopped by your provider. Discuss any questions related to medications with your provider. Medications to Continue with No Changes [id number] [id number] [place] [id number], [phone] Allopurinol (allopurinol 300 mg oral tablet) 1 tab(s) Oral Daily. Refills: 3. Next Dose: These medications were not printed or sent to your pharmacy Albuterol (Ventolin HFA 108 mcg/inh inhalation aerosol with adapter) 2 puff(s) Inhalation 4 times aday as needed for wheezing. Refills: 11. Next Dose: Aspirin (aspirin 81 mg oral delayed release tablet) 1 tab(s) Oral Daily. Do not crush, chew, or split. Refills: 1. Next Dose: Atorvastatin (atorvastatin 10 mg oral tablet) 1 tab(s) Oral Daily. Refills: 3. Next Dose: Diltiazem (Cardizem CD 120 mg/24 hours oral capsule, extended release) 1 capsule Oral Daily for 90 Days. Refills: 3. Next Dose: Diltiazem (Cardizem CD 120 mg/24 hours oral capsule, extended release) 1 capsule Oral Daily for 90 Days. Refills: 3. Next Dose: Durable Medical Equipment (One Touch Ultra 2 Glucose Meter) dm 2 E11.9 check blood sugar twice a day. Refills: 0. Next Dose: Durable Medical Equipment (One Touch Ultra Test Strips) dm 2 E11.9 check blood sugar twice a day. Refills: 11. Next Dose: Durable Medical Equipment (Sling) Right arm sling for severe gout right wrist.. Refills: 0. Next Dose: Ezetimibe (Zetia 10 mg oral tablet) 1 tab(s) Oral Daily. Refills: 3. Next Dose: Fluticasone Nasal (fluticasone 50 mcg/inh nasal spray) USE 2 SPRAYS IN EACH NOSTRIL DAILY. Refills:3. Next Dose: Gabapentin (gabapentin 100 mg oral capsule) 1 capsule Oral 3 times a day. Refills: 3. Next Dose: Metformin (metFORMIN 500 mg oral tablet) 1 tab(s) Oral twice a day. Refills: 3. Next Dose: Metoprolol (Metoprolol Tartrate 25 mg oral tablet) 0.5 tab(s) Oral twice a day for 90 Days. Refills: 3. Next Dose: Metoprolol (Metoprolol Tartrate 25 mg oral tablet) 0.5 tab(s) Oral twice a day for 90 Days. Refills: 3. Next Dose: Miscellaneous Rx (1 walker. Use for ambulation) 1 walker. Refills: 0. Next Dose: Miscellaneous Rx (1 wheelchair) 1 wheelchair. Diagnosis- generalized weakness, chronic L/E Pain. Refills: 0. Next Dose: Miscellaneous Rx (One Touch Ultra Lancets) 1 box = 100 lancets DM 2 E11.9 Check blood sugar twice a day. Refills: 11. Next Dose: Nitroglycerin (nitroglycerin 0.4 mg sublingual tablet) 1 tab(s) Oral every 5 minutes as needed NEEDED FOR MODERATE CHEST PAIN (NOT TO EXCEED 3 DOSES/15 MINUTES, IF PAIN PERSISTS, SEEK MEDICATION ATTENTION). Refills: 0. Next Dose: Ticagrelor (ticagrelor 90 mg oral tablet) 1 tab(s) Oral twice a day. Refills: 1. Next Dose: No Longer Take the Following Medications Lisinopril (lisinopril 20 mg oral tablet) 1 tab(s) Oral Daily. Refills: 6. Allergy Info:?? Flomax; aspirin; ibuprofen Medications Given This Visit Future Orders ?Renal Panel? Order Date:04/16/22?- Complete by?04/18/22 ?Comprehensive Metabolic Panel? Order Date:07/01/22?- Complete by?07/22/22 ?Hemoglobin A1C (Monitoring)? Order Date:07/01/22?- Complete by?07/22/22 ?Uric Acid? Order Date:07/01/22?- Complete by?07/22/22 ?Lipid Panel? Order Date:07/01/22?- Complete by?07/22/22 ?Microalbumin Urine? Order Date:07/01/22?- Complete by?07/22/22 ?Thyroid Panel? Order Date:07/01/22?- Complete by?07/22/22 ?CBC? Order Date:07/01/22?- Complete by?07/22/22 Vital Signs Height 175 cm Weight 92.1 kg BMI 30.07 kg/m2 Blood Pressure 120 mm Hg/64 mm Hg Temperature Pulse Rate 73 bpm Respiratory Rate 02 Sat Mode of Delivery 98 %/Room air You can now view a summary of your hospital visit from the comfort of your home through a free online portal called [employer]. [employer] is a website that allows you to securely view your medical information including discharge summary, medications and follow-up visits. ??You can alsosend a secure electronic message to your doctor???s office to request appointments, renew medications or just ask a question. You can enroll at [email or web address] or register during your next office visit. Disclaimer:?? The information provided is of a general nature and is intended to be used in conjunction with the recommendations and advice of your health care practitioner. ??Every effort has been made to ensure that the information provided is accurate and complete at the time it is provided to you however, as your needs change, or, as new ??information becomes available, different or additional instructions may be required. If you have questions, please consult with your primary care provider or pharmacist, as appropriate. ??This information is not intended to serve as substitution for assessment and evaluation by a qualified health care provider. If you do not have a primary care provider, you may find a [facility] provider by calling [facility] at [phone]. For information about the plan of care including goals and instructions for your diagnosis, please see the patient education orders section of this document. Patient Education Materials?? The content of this educational material or handout may have been modified, supplemented, or adapted from its original content and format to support your individualized medical care. Additional Provider Instructions: Thank you for coming in for your visit today. As we discussed at your appointment please discontinue lisinopril. I would like you to come in for repeat well-hydrated blood work in 2 weeks to make sure that your kidney function is coming back to baseline and your potassium is okay. Your uric acid is slightly higher than we would like it. Uric acid is what causes gout. I would like you to increase your allopurinol to 300 mg daily. I sent in a new prescription for your allopurinol. I will see you back in follow-up in 3 months. I placed an order for blood work for 3 months which you should have done fasting prior to your appointment with me in 3 months. Patient Care team information Care Team Personnel Name: Patti Mcdonald RN Position: [facility] RN Member Role: Primary Care Nurse Name: Sherly Ireland NP Position: [facility] Associate Professional Member Role: Primary Care Nurse Address: Address: [address] [place] [phone]- [place] Name: Cathie Barth RN Position: [facility] RN Member Role: Primary Care Nurse Name: Otf Zelaya MD Position: [facility] Primary Care Physician Member Role: PCP Address: Address: [address] [place] [phone]- [place] Name: Tg Alcala RN Position: [facility] AMB Nurse Member Role: Primary Care Nurse Name: Daren Jung RN Position: [facility] RN Member Role: Primary Care Nurse Name: Avinash MORRIS, Gretchen Saha Position: [facility] RN Member Role: Primary Care Nurse Care Team Related Persons Name: AARTI ROMAN Address: home [address] [place] [id number] Name: NO, NONE
--- OUTSIDE RECORDS SUMMARY | 2023-04-10 14:17 | XMS_ITS | Continuity of Care Document ---
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 Start Date: 04/02/22 Status: Ordered aspirin 81 mg oral delayed release tablet 81 mg, 1, tablet, By Mouth, Daily, Do not crush, chew, or split, # 90 tablet, Refills 1, Tot. Refills 1, Maintenance, 04/22/21 8:20:00 EST, Route to Pharmacy Electronically, [facility]/pharmacy #[id number], Partial fill upon patient request if the prescription is... Start Date: 04/22/21 Status: Ordered atorvastatin 10 mg oral tablet 1 tablet, By Mouth, Daily, # 90 tablet, 3 Refills, Maintenance, 12/04/21 15:40:00 EDT, [facility]/pharmacy#[id number], 175, cm, 12/04/21 15:07:00 EDT, Height, 88.5, kg, 04/11/21 0:05:00 EST, Dry Weight Start Date: 12/04/21 Status: Ordered Cardizem CD 120 mg/24 hours oral capsule, extended release 120 mg, 1, capsule, By Mouth, Daily, # 90 capsule, Refills 3, Tot. Refills 3, Maintenance, 05/03/2309:46:00 EST, Route to Pharmacy Electronically, [facility]/pharmacy #[id number], Partial fill upon patient request if the prescription is for a schedule II opioid d... Start Date: 05/03/22 Stop Date: 04/28/23 Status: Ordered fluticasone 50 mcg/inh nasal spray See Instructions, USE 2 SPRAYS IN EACH NOSTRIL DAILY, # 48 mL, 3 Refills, [id number], 90, USE 2 SPRAYS IN EACH NOSTRIL DAILY, 175, cm, 08/12/21 14:14:00 EDT, Height, 88.5, kg, 04/11/21 0:05:00 EST, Dry Weight Start Date: 09/12/21 Status: Ordered gabapentin 100 mg oral capsule 100 mg, 1, capsule, By Mouth, 3 times a day, # 270 capsule, Refills 3, Tot. Refills 3, Maintenance,03/28/22 11:23:00 EST, [id number] Partial fill upon patient request if the prescription is for a schedule II... Start Date: 03/28/22 Status: Ordered metFORMIN 500 mg oral tablet 1 tablet, By Mouth, 2 times a day, # 180 tablet, 3 Refills, Maintenance, 12/04/21 15:40:00 EDT, [facility]/pharmacy #[id number], 175, cm, 12/04/21 15:07:00 EDT, Height, 88.5, kg, 04/11/21 0:05:00 EST, Dry Weight Start Date: 12/04/21 Status: Ordered Metoprolol Tartrate 25 mg oral tablet 0.5 tablet, By Mouth, 2 times a day, # 90 tablet, 3 Refills, Maintenance, 11/29/22 15:20:00 EDT, [facility]/pharmacy #[id number], 175, cm, 12/04/21 15:07:00 EDT, Height, 88.5, kg, 04/11/21 0:05:00 EST, Dry Weight Start Date: 11/29/22 Stop Date: 11/24/23 Status: Ordered nitroglycerin 0.4 mg sublingual tablet 1 tablet, By Mouth, Every 5 minutes, PRN NEEDED FOR MODERATE CHEST PAIN (NOT TO EXCEED 3 DOSES/15 MINUTES, IF PAIN PERSISTS, SEEK MEDICATION ATTENTION), # 25 tablet, 0 Refills, Maintenance, 06/11/21 10:00:00 EDT, [facility]/pharmacy #[id number], 175, cm, ... Start Date: [...] 1 Refills, Maintenance, 12/04/21 15:41:00 EDT, Tablet, [facility]/pharmacy #[id number], Partial fill upon patient request [...] study * Event Display: EKG Authored Date: Cardiology * Patti Ivey: PERFORM Event Display: Cardiovascular Results Scanned Authored Date: Laboratory * Event Display: Non [facility] Lab Results Authored Date: * Event Display: Non [facility] Lab Results Authored Date: * Richa Cueto: PERFORM Event Display: Laboratory Results Scanned Authored Date: [id number] Radiology * Fior Felix: PERFORM Event Display: Radiology Results Scanned Authored Date: Patient Care team information Care Team Personnel Name: Patti Mcdonald RN Position: S RN Member Role: Primary Care Nurse Name: Sherly Ireland NP Position: S Associate Professional Member Role: Primary Care Nurse Address: Address: [address] [place] [id number] Name: Cathie Barth RN Position: [facility] RN Member Role: Primary Care Nurse Name: Nathalie ARAGON, Otf Del Rosario Position: [facility] Physician - Primary Care Member Role: PCP Address: Address: [address] [place] [address]- Name: Tg Alcala RN Position: [facility] AMB Nurse Member Role: Primary Care Nurse Name: Daren Jung RN Position: [facility] RN Member Role: Primary Care Nurse Name: Avinash MORRIS, Gretchen Saha Position: [facility] RN Member Role: Primary Care Nurse Care Team Related Persons Name: AARTI ROMAN Address: home [address] [place] [id number] Name: NO, NONE
--- OUTSIDE RECORDS SUMMARY | 2023-04-10 14:17 | XMS_ITS | Continuity of Care Document ---
Author Name Unknown Organization [facility] Sudhakar lt Address [address] [place] [address]- Care Team Providers Care Vp [employer] Name Role Phone Otf Zelaya MD Primary Care Physician [phone] Encounter [facility] Date(s): 07/27/20 - 11/24/20 [facility] Adult [address] [place] [address]- Attending Physician: Otf Zelaya MD Allergies, Adverse [...] Compound Start Date: 07/25/15 Status: Ordered Flonase Sensimist 27.5 mcg/inh nasal spray 1 sprays, Nares, Both, Daily, PRN Nasal Congestion, Maintenance, 06/21/20 8:35:00 EDT Start Date: 06/21/20 Status: Ordered gabapentin 100 mg oral capsule 100 mg, 1, capsule, By Mouth, 3 times a day, # 90 capsule, Refills 2, Tot. Refills 2, Maintenance, 06/27/20 15:24:00 EDT, Route to Pharmacy Electronically, [facility], Partial fill uponpatient request if the prescription is for a schedu... Start Date: 06/27/20 Status: Ordered lisinopril 20 mg oral tablet 20 mg, 1, tablet, By Mouth, Daily, # 30 tablet, Refills 0, Maintenance, 06/25/20 14:41:00 EDT, Partial fill upon patient request if the prescription is for a schedule II opioid drug. Start Date: 06/25/20 Status: Ordered nitroglycerin 0.4 mg sublingual tablet 1 tablet = 0.4 mg, Sublingual, Every 5 minutes, PRN Pain , Moderate, (not to exceed 3 doses/15 min--if pain persists, seek medical attention), # 25 tablet, 0 Refills, Maintenance, 02/10/18 9:40:43 EST Start Date: 02/10/18 Status: Ordered Pen Thompson, 30 G x 8 mm BD Ultra [...] 06/27/20 15:28:00 EDT, Route to Pharmacy Electronically, [facility], 175, cm, 06/27/20 3:49:00 EDT, Height, 78, kg, 06/20/20 23:41:00 EDT, Dry Weight Start Date: 06/27/20 Status: Ordered Soft Click Lancets See Instructions, [...]
--- OUTSIDE RECORDS SUMMARY | 2023-04-10 14:17 | XMS_ITS | Continuity of Care Document ---
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 Name Role Phone Otf Zelaya MD Primary Care Physician [phone] Encounter [facility] Date(s): 05/22/20 - 05/23/[address] [address]- Discharge Disposition: A-D/C Home Attending Physician: Darell Chan MD Admitting Physician: Darell Chan MD Referring Physician: Not on Staff, Referring [...] 10:22:14, Compound Start Date: 07/25/15 Status: Ordered Acetaminophen Tablet 650 mg, Tablet, By Mouth, Every 8 hours, PRN for Pain , Moderate, Routine, 05/22/20 21:17:00 EDT Start Date: 05/22/20 Stop Date: 05/24/20 Status: Discontinued Flonase 50 mcg/inh nasal spray 2 sprays, Nasal, Daily, # 1 each, 11 Refills, Maintenance, 04/18/20 9:32:00 EST, [facility]/pharmacy #[id number], [...] EST Start Date: 02/10/18 Status: Ordered Pen [place], 30 G x 8 mm BD Ultra [...] 11 Refills, Maintenance, 04/18/20 9:32:00 EST, Aerosol, [facility]/pharmacy #[id number], 165, cm, 04/18/20 9:20:00 EST, Height Start Date: 04/18/20 Status: Ordered Viagra 50 mg oral tablet 1 tablet = 50 mg, By Mouth, Daily, 1 hour before sexual activity, # 30 tablet, 5 Refills, Maintenance, 04/18/20 9:33:00 EST, Tablet, [facility]/pharmacy #[id number], 165, cm, 04/18/20 9:20:00 EST, Height Start Date: 04/18/20 Status: Ordered Zestril 20 mg oral tablet 20 mg, 1, tablet, By Mouth, Daily, # 90 tablet, Refills 3, Tot. Refills 3, Maintenance, 01/20/20 8:52:00 EST, Route to Pharmacy Electronically, [facility]/pharmacy #[id number], 165, cm, 10/14/19 9:03:00 EDT, Height, 80, kg, 03/23/18 18:39:00 EST, Dry Weight Start Date: 01/20/20 Status: Ordered Zestril 20 mg oral tablet 20 mg, Tablet, By Mouth, 05/23/20 9:00:00 EDT Start Date: 05/23/20 Stop Date: 05/23/20 Status: Completed Zetia 10 mg oral tablet 1 tablet = 10 mg, By Mouth, Daily, # 90 tablet, 3 Refills, Maintenance, 01/20/20 8:52:00 EST, [facility]/pharmacy #[id number], 165, cm, 10/14/19 9:03:00 [...] Exam Date Time Procedure Performing Provider Status 3/16/21 7:23 PM Foot Min 3 Views Left Cathy Acevedo; Auth (Verified) Notes: (Foot Min 3 Views Left) Reason For Exam: with Pain;Trauma RESULT: Foot Min 3 Views Left Foot Min 3 Views Left, 3 views Hx of Present Illness: Pt states he fell on ice on Thursday extending R leg behind himself. reportingR lateral knee pain and swelling to knee cap. denies head neck or back pain; Reason: Trauma; with Pain; Clinical Question(s): Fracture COMPARISON: 04/05/2012 FINDINGS: No fractures or bone lesions. There is loss of cartilage space at the first MTP joint, progressed since 2012. Marginal osteophytes are also present. A large Achilles spur is present. Normal soft tissues. IMPRESSION: No fracture or dislocation. WSN: [id number] Ordering Physician: Darell Chan Dictated By: Tatiana Butler MD Dictated Date/Time: 05/22/20 7:26 pm Reviewed By: Tatiana Butler MD Signed By: Tatiana Butler MD Signed Date/Time: 05/22/20 7:26 pm Transcribed By: JAREN Transcribed Date/Time: 05/22/20 7:25 pm * Exam Date Time Procedure Performing Provider Status 05/22/20 3:19 PM Knee 1 or 2 Views Right Mary Mack sa; Auth (Verified) Notes: (Knee 1 or 2 Views Right) Reason For Exam: Pain RESULT: Knee 1 or 2 Views Right Right knee , 3 views INDICATION: Pain after fall last week. Pain and swelling lateral knee and kneecap. COMPARISON: None. FINDINGS: There is no evidence of acute or healing fracture, dislocation or bone lesion. Moderate arthritic changes including severe medial compartment joint space narrowing. Moderate joint effusion. Heavy vascular calcification and vascular surgical clips. IMPRESSION: Positive joint effusion. Arthritis but no fracture. WSN: [id number] Ordering Physician: Garrick Li MD Dictated By: Anuj Jean MD Dictated Date/Time: 05/22/20 3:22 pm Reviewed By: Anuj Jean MD Signed By: Anuj Jean MD Signed Date/Time: 05/22/20 3:22 pm Transcribed By: JAREN Transcribed Date/Time: 05/22/20 3:20 pm Vital Signs Most recent to oldest [Reference Range]: 1 2 3 Height 174 cm (05/23/20 4:06 PM) 174 cm (05/23/20 7:58 AM) 174 cm (05/23/20 3:36 AM) Oxygen Saturation [94-100 %] 92 % *L* (05/23/20 4:06 PM) 97 % (05/23/20 7:58 AM) 97 % (05/23/20 3:36 AM) Pulse Rate [55-90 bpm] 94 bpm *H* (05/23/20 7:58 AM) 98 bpm *H* (05/23/20 3:36 AM) 97 bpm *H* (05/22/20 9:35 PM) Blood Pressure [90-138/55-84 mm Hg] 111/61mm Hg (05/23/20 4:06 PM) 107/90mm Hg (05/23/20 10:46 AM) 142/78mm Hg *H* (05/23/20 7:58 AM) Respiratory Rate [16-30 br/min] 20 br/min (05/23/20 10:26 AM) 18 br/min (05/23/20 7:58 AM) 20 br/min (05/23/20 4:43 AM) Temperature [96.8-100.4 DegF] 97.9 DegF (05/23/20 7:58 AM) 98.0 DegF (05/23/20 3:36 AM) 98.1 DegF (05/22/20 9:35 PM) Mode of Delivery (Oxygen) Room air (05/23/20 4:06 PM) Room air (05/23/20 7:58 AM) Room air (05/23/20 3:36 AM) Blood pressure sites Arm, right (05/23/20 4:06 PM) Arm, right (05/23/20 7:58 AM) Arm, left (05/23/20 3:36 AM) Temperature Route Oral (05/23/20 7:58 AM) Oral (05/23/20 3:36 AM) Oral (05/22/20 9:35 PM) Social History Social History Type Response Smoking Status Former smoker; Other : Quit smoking age 44; entered on: 08/22/15 Sex
--- OUTSIDE RECORDS SUMMARY | 2023-04-10 14:17 | XMS_ITS | Continuity of Care Document ---
Author Name Unknown Organization [facility] lt Address [address] [place] [address]- Care Team Providers Care Center Director Name Role Phone Nathalie ARAGON, Otf Del Rosario Primary Care Physician [place] [facility]18[place] - 07/18/20 [facility] Adult [address] [place] [address]- Allergies, Adverse Reactions, Alerts Substance Reaction Severity [...] 06/27/20 15:24:00 EDT, Route to Pharmacy Electronically, [facility], Partial fill uponpatient request if the prescription is for a schedu... Start Date: 06/27/20 Status: Ordered lidocaine 4% topical film 1 patch, Topically, Daily, do not leave patch on for more than 8 hours at a time Apply to Right shoulder and Rt knee, # 60 patch, 0 Refills, Maintenance, 06/27/20 15:56:00 EDT, Film, [facility], Partial fill upon patient request if the... Start Date: 06/27/20 Status: Ordered lidocaine 5% topical film See Instructions, Topically Daily- apply 1 patch to right shoulder and 1 to right knee daily. remove patches after 12 hours, # 60 patch, 2 Refills, Maintenance, 06/27/20 15:26:00 EDT, [facility], Partial fill upon patient reques... Start [...] 2 Refills, Maintenance, 06/27/20 15:24:00 EDT, Tablet, [facility], Partial fill upon patient [...] 0 Refills, Maintenance, 07/16/20 16:29:00 EDT, Capsule, [facility]/pharmacy #[id number], Partial fill upon patient request if the prescription is for a schedule II opioid drug., 175, cm,... Start Date: 07/16/20 Stop Date: 07/30/20 Status: Ordered Pen [place], 30 G x 8 mm BD Ultra [...] 06/27/20 15:28:00 EDT, Route to Pharmacy Electronically, [facility], 175, cm, 06/27/20 3:49:00 [...]
--- OUTSIDE RECORDS SUMMARY | 2023-04-10 14:17 | XMS_ITS | Continuity of Care Document ---
Author Name Unknown Organization [facility] lt Address [address] [place] [address]- Care Team Providers Care Regulatory Affairs Consultant Name Role Phone Otf Zelaya MD Primary Care Physician Encounter [facility] Date(s): 12/04/21 - 12/11/21 [facility] Adult [address] [place] [address]- Attending Physician: Otf Zelaya MD Allergies, Adverse [...] tablet, Refills 3, Tot. Refills 3, Maintenance, 12/04/21 15:25:00 EDT, Route to Pharmacy Electronically, [facility]/pharmacy #[id number], Partial fill upon patient requestif the prescription is for a schedule II opioid charo... Start Date: 12/04/21 Status: Ordered aspirin 81 mg oral delayed release tablet 81 mg, 1, tablet, By Mouth, Daily, Do not crush, chew, or split, # 90 tablet, Refills 1, Tot. Refills 1, Maintenance, 04/22/21 8:20:00 EST, Route to Pharmacy Electronically, [facility]/pharmacy #[id number], Partial fill upon patient request if the prescription is... Start Date: 04/22/21 Status: Ordered atorvastatin 10 mg oral tablet 1 tablet, By Mouth, Daily, # 90 tablet, 3 Refills, Maintenance, 12/04/21 15:40:00 EDT, [facility]/pharmacy#[id number], 175, cm, 12/04/21 15:07:00 EDT, Height, 88.5, kg, 04/11/21 0:05:00 EST, Dry Weight Start Date: 12/04/21 Status: Ordered Cardizem CD 120 mg/24 hours oral capsule, extended release 120 mg, 1, capsule, By Mouth, Daily, # 90 capsule, Refills 3, Tot. Refills 3, Maintenance, 05/08/2209:46:00 EST, Route to Pharmacy Electronically, [facility]/pharmacy #[id number], Partial fill upon patient request if the prescription is for a schedule II opioid d... Start Date: 05/08/21 Stop Date: 05/03/22 Status: Ordered fluticasone 50 mcg/inh nasal spray See Instructions, USE 2 SPRAYS IN EACH NOSTRIL DAILY, # 48 mL, 3 Refills, [facility] STORE [id number], 90, USE 2 SPRAYS IN EACH NOSTRIL DAILY, 175, cm, 08/12/21 14:14:00 EDT, Height, 88.5, kg, 04/11/21 0:05:00 EST, Dry Weight Start Date: 09/12/21 Status: Ordered gabapentin 100 mg oral capsule 100 mg, 1, capsule, By Mouth, 3 times a day, # 270 capsule, Refills 3, Tot. Refills 3, Maintenance,12/04/21 15:40:00 EDT, Route to Pharmacy Electronically, [facility]/pharmacy #[id number], Partial fill upon patient request if the prescription is for a schedule II... Start Date: 12/04/21 Status: Ordered metFORMIN 500 mg oral tablet 1 tablet, By Mouth, 2 times a day, # 180 tablet, 3 Refills, Maintenance, 12/04/21 15:40:00 EDT, [facility]/pharmacy #[id number], 175, cm, 12/04/21 15:07:00 EDT, Height, 88.5, kg, 04/11/21 0:05:00 EST, Dry Weight Start Date: 12/04/21 Status: Ordered Metoprolol Tartrate 25 mg oral tablet 0.5 tablet, By Mouth, 2 times a day, # 90 tablet, 3 Refills, Maintenance, 12/04/21 15:20:00 EDT, [facility]/pharmacy #[id number], 175, cm, 12/04/21 15:07:00 EDT, Height, 88.5, kg, 04/11/21 0:05:00 EST, Dry Weight Start Date: 12/04/21 Stop Date: 11/29/22 Status: Ordered nitroglycerin 0.4 mg sublingual tablet 1 tablet, By Mouth, Every 5 minutes, PRN NEEDED FOR MODERATE CHEST PAIN (NOT TO EXCEED 3 DOSES/15 MINUTES, IF PAIN PERSISTS, SEEK MEDICATION ATTENTION), # 25 tablet, 0 Refills, Maintenance, 06/11/21 10:00:00 EDT, [facility]/pharmacy #[id number], 175, cm, ... Start [...] oldest [Reference Range]: 1 Height 175 cm (12/04/21 3:07 PM) Weight 89.7 kg (12/04/21 3:07 PM) Oxygen Saturation [94-100 %] 98 % (12/04/21 3:07 PM) Pulse Rate [55-90 bpm] 96 bpm *H* (12/04/21 3:07 PM) Body Mass Index [18.5-24.99 kg/m2] 29.29 kg/m2 *H* (12/04/21 3:07 PM) Blood Pressure [90-138/55-84 mm Hg] 132/ 62mm Hg (12/04/21 3:07 PM) Mode of Delivery (Oxygen) Room air (12/04/21 3:07 PM) Blood pressure sites Leg, right (12/04/21 3:07 PM) Weight Obtained Via Standing scale (12/04/21 3:07 PM) Social History Social History Type Response Smoking Status Former smoker; Other : Quit smoking age 44; entered on: 08/22/15 Sex Patient Care team information Personnel Name: Nathalie ARAGON, Otf Del Rosario Address: Address: [address] [place] [id number]
--- OUTSIDE RECORDS SUMMARY | 2023-04-10 14:17 | XMS_ITS | Continuity of Care Document ---
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 Start Date: 06/27/20 Status: Ordered lidocaine 4% topical film 1 patch, Topically, Daily, do not leave patch on for more than 8 hours at a time Apply to Right shoulder and Rt knee, # 60 patch, 0 Refills, Maintenance, 06/27/20 15:56:00 EDT, Film, [facility], Partial fill upon patient request if the... Start Date: 06/27/20 Status: Ordered lidocaine 5% topical film See Instructions, Topically Daily- apply 1 patch to right shoulder and 1 to right knee daily. remove patches after 12 hours, # 60 patch, 2 Refills, Maintenance, 06/27/20 15:26:00 EDT, [facility], Partial fill upon patient reques... Start [...] 2 Refills, Maintenance, 06/27/20 15:24:00 EDT, Tablet, [facility], Partial fill upon patient request [...] 0 Refills, Maintenance, 07/16/20 16:29:00 EDT, Capsule, [facility]/pharmacy #[id number], Partial fill upon patient request if the prescription is for a schedule II opioid drug., 175, cm,... Start Date: 07/16/20 Stop Date: 07/30/20 Status: Ordered Pen [place], 30 G x 8 mm BD Ultra [...] 06/27/20 15:28:00 EDT, Route to Pharmacy Electronically, [facility], 175, cm, 06/27/20 3:49:00 EDT, [...]
--- OUTSIDE RECORDS SUMMARY | 2023-04-10 14:17 | XMS_ITS | Continuity of Care Document ---
Author Name Unknown Organization [facility] Sudhakar lt Address [address] [place] [address]- Care Team Providers Care Financial Investment Manager Name Role Phone Otf Zelaya MD Primary Care Physician [phone] Encounter [facility] Date(s): 04/17/21 - 05/17/21 [facility] Adult [address] [place] [address]- Allergies, Adverse Reactions, Alerts Substance Reaction Severity [...] 04/22/21 8:20:00 EST, [id number], cm, 04/22/21 8:02:00 EST, Height, 88.5, kg, 04/11/21 0:05:00 EST, Dry Weight Start Date: 04/22/21 Status: Ordered metFORMIN 500 mg oral tablet 1 tablet = 500 mg, By Mouth, 2 times a day, # 180 tablet, 1 Refills, Maintenance, 04/22/21 8:22:00 EST, Tablet, [id number] Partial fill upon patient request if the prescription is for a schedule II opioid drug., 175, cm, 04/22/21 8:02:00 EST,... Start Date: 04/22/21 Status: Ordered nitroglycerin 0.4 mg sublingual tablet 1 tablet = 0.4 mg, Sublingual, Every 5 minutes, PRN Pain , Moderate, (not to exceed 3 doses/15 min--if pain persists, seek medical attention), # 25 tablet, 0 Refills, Maintenance, 05/17/21 8:29:00 EST, [facility]/pharmacy #[id number], 175, cm, 05/08/21 10:15:00 ES... Start Date: 05/17/21 Status: Ordered nitroglycerin 0.4 mg sublingual tablet 1 tablet, By Mouth, Every 5 minutes, PRN NEEDED FOR MODERATE CHEST PAIN (NOT TO EXCEED 3 DOSES/15 MINUTES, IF PAIN PERSISTS, SEEK MEDICATION ATTENTION), # 25 tablet, 0 Refills, [facility] ST[facility] [id number], 175, cm, 05/08/21 10:15:00 EST, Height, 88.5, kg, 02/0... Start Date: 05/17/21 Status: Ordered One Touch Ultra 2 Glucose [...] 1 Refills, Maintenance, 04/22/21 8:20:00 EST, Tablet, [facility]/pharmacy #[id number], Partial fill upon patient request [...]
--- OUTSIDE RECORDS SUMMARY | 2023-04-10 14:18 | XMS_ITS | Continuity of Care Document ---
Author Name Unknown Organization [facility] Sudhakar lt Address [address] [place] [address]- Care Team Providers Care Director Television News Name Role Phone Otf Zelaya MD Primary Care Physician Encounter [facility] Date(s): 05/13/21 - 06/12/21 [facility] Adult [address] [place] [address]- Allergies, Adverse Reactions, Alerts Substance Reaction Severity [...] 04/22/21 8:20:00 EST, Route to Pharmacy Electronically, [facility]/pharmacy #[id number], 175, cm, 04/22/21 8:02:00 EST, Height, 88.5, kg, 04/11/21 0:05:00 EST, Dry Weight Start Date: 04/22/21 Status: Ordered metFORMIN 500 mg oral tablet 1 tablet = 500 mg, By Mouth, 2 times a day, # 180 tablet, 1 Refills, Maintenance, 04/22/21 8:22:00 EST, Tablet, [facility]/pharmacy #[id number], Partial fill upon patient request [...] tablet, 0 Refills, Maintenance, 06/11/21 10:00:00 EDT, [facility]/pharmacy #[id number], 175, cm, 05/08/... Start Date: [...] 1 Refills, Maintenance, 04/22/21 8:20:00 EST, Tablet, [facility]/pharmacy #[id number], Partial fill upon patient request if the prescription is for a schedule II opioid drug., 175, cm, 04/22/21 8:02:00 EST,... Start Date: 04/22/21 Status: Ordered Ventolin HFA 108 mcg/inh inhalation aerosol with adapter 2 puffs, Inhalation, 4 times a day, PRN for wheezing, # 8 Gm, 11 Refills, Maintenance, 04/22/21 8:20:00 EST, Aerosol, [facility]/pharmacy #[id number], 175, cm, 04/22/21 8:02:00 EST, [...]
--- OUTSIDE RECORDS SUMMARY | 2023-04-10 14:18 | XMS_ITS | Continuity of Care Document ---
Author Name Unknown Organization [facility] Sudhakar lt Address [address] [place] [address]- Care Team Providers Care Trailer Rental Clerk Name Role Phone Nathalie ARAGON, Otf Del Rosario Primary Care Physician Encounter [facility] Date(s): 07/16/20 - 07/23/20 [facility] Adult [address] [place] [address]- Attending Physician: Not on Staff, Attending MD Allergies, Adverse Reactions, Alerts Substance Reaction [...] 06/27/20 15:24:00 EDT, Route to Pharmacy Electronically, [facility], Partial fill uponpatient request if the prescription is for a schedu... Start Date: 06/27/20 Status: Ordered lidocaine 4% topical film 1 patch, Topically, Daily, do not leave patch on for more than 8 hours at a time Apply to Right shoulder and Rt knee, # 60 patch, 0 Refills, Maintenance, 06/27/20 15:56:00 EDT, Film, [facility], Partial fill upon patient request if the... Start Date: 06/27/20 Status: Ordered lidocaine 5% topical film See Instructions, Topically Daily- apply 1 patch to right shoulder and 1 to right knee daily. remove patches after 12 hours, # 60 patch, 2 Refills, Maintenance, 06/27/20 15:26:00 EDT, Patch, [facility], Partial fill upon patient reques... Start [...] 2 Refills, Maintenance, 06/27/20 15:24:00 EDT, Tablet, [facility], Partial fill upon patient request [...] 0 Refills, Maintenance, 07/16/20 16:29:00 EDT, Capsule, [facility]/pharmacy #[id number], Partial fill upon patient request if the prescription is for a schedule II opioid drug., 175, cm,... Start Date: 07/16/20 Stop Date: 07/30/20 Status: Ordered Pen [place], 30 G x 8 mm BD Ultra [...] 06/27/20 15:28:00 EDT, Route to Pharmacy Electronically, [facility], 175, cm, 06/27/20 3:49:00 EDT, [...] oldest [Reference Range]: 1 Height 175 cm (07/16/20 3:49 PM) Weight 79.7 kg (07/16/20 3:49 PM) Oxygen Saturation [94-100 %] 98 % (07/16/20 3:49 PM) Pulse Rate [55-90 bpm] 76 bpm (07/16/20 3:49 PM) Body Mass Index [18.5-24.99] 26.02 *H* (07/16/20 3:49 PM) Blood Pressure [90-138/55-84 mm Hg] 124/ 68mm Hg (07/16/20 3:49 PM) Blood pressure sites Arm, left (07/16/20 3:49 PM) Social History Social History Type Response Smoking Status Former smoker; Other : Quit smoking age 44; entered on: 08/22/15 Sex
--- OUTSIDE RECORDS SUMMARY | 2023-04-10 14:18 | XMS_ITS | Continuity of Care Document ---
Author Name Unknown Organization [facility] Sudhakar lt Address [address] [place] [address]- Care Team Providers Care Windows Architect Name Role Phone Otf Zelaya MD Primary Care Physician [place] [facility] [place]17[place] 05/17[place]21 [facility] Adult [address] [place] [address]- Allergies, Adverse Reactions, Alerts Substance Reaction Severity [...] [id number] 175, cm, 04/22/21 8:02:00 EST, Height, 88.5, kg, 04/11/21 0:05:00 EST, Dry Weight Start Date: 04/22/21 Status: Ordered metFORMIN 500 mg oral tablet 1 tablet = 500 mg, By Mouth, 2 times a day, # 180 tablet, 1 Refills, Maintenance, 04/22/21 8:22:00 EST, Tablet, [id number] Partial fill upon patient request if [...] tablet, 0 Refills, Maintenance, 05/17/21 8:29:00 EST, [facility]/pharmacy #[id number], 175, cm, 05/08/21 10:15:00 ES... Start Date: 05/17/21 Status: Ordered nitroglycerin 0.4 mg sublingual tablet 1 tablet, By Mouth, Every 5 minutes, PRN NEEDED FOR MODERATE CHEST PAIN (NOT TO EXCEED 3 DOSES/15 MINUTES, IF PAIN PERSISTS, SEEK MEDICATION ATTENTION), # 25 tablet, 0 Refills, [id number], 175, cm, 05/08/21 10:15:00 EST, Height, 88.5, [...] 1 Refills, Maintenance, 04/22/21 8:20:00 EST, Tablet, [facility]/pharmacy #[id number], Partial fill upon [...]
--- OUTSIDE RECORDS SUMMARY | 2023-04-10 14:18 | XMS_ITS | Continuity of Care Document ---
Author Name Unknown Organization [facility] Sudhakar lt Address [address] [place] [address]- Care Team Providers Care Hand Mexican Food Maker Name Role Phone Otf Zelaya MD Primary Care Physician [phone] [place] [facility] [place](s): 10/29/20 - 11/05/20 [facility] Adult [address] [place] [address]- Encounter Diagnosis Asthma(Discharge Diagnosis) - 10/29/20 Chronic hepatitis C(Discharge Diagnosis) - 10/29/20 Attending Physician: Otf Zelaya MD Allergies, Adverse [...] 10:22:14, Compound Start Date: 07/25/15 Status: Ordered amoxicillin 500 mg oral capsule 1 capsule = 500 mg, By Mouth, 3 times a day, for 10 days, # 30 capsule, 0 Refills, Acute 11/08/20 15:09:00 EDT, 10/29/20 15:09:00 EDT, Capsule, [facility]/pharmacy #[id number], Partial fill upon patient request if the prescription is for a schedule II opioid drug.... Start Date: 10/29/20 Stop Date: 11/08/20 Status: Ordered Flonase Sensimist 27.5 mcg/inh nasal spray 1 sprays, Nares, Both, Daily, PRN Nasal Congestion, Maintenance, 06/21/20 8:35:00 EDT Start Date: 06/21/20 Status: Ordered gabapentin 100 mg oral capsule 100 mg, 1, capsule, By Mouth, 3 times a day, # 90 capsule, Refills 2, Tot. Refills 2, Maintenance, 06/27/20 15:24:00 EDT, Route to Pharmacy Electronically, [facility], Partial fill uponpatient request if [...] EST Start Date: 02/10/18 Status: Ordered Pen [place], 30 G x 8 mm BD Ultra [...] 06/27/20 15:28:00 EDT, Route to Pharmacy Electronically, [facility], 175, cm, 06/27/20 3:49:00 EDT, [...] 11 Refills, Maintenance, 04/18/20 9:32:00 EST, Aerosol, [facility]/pharmacy #[id number], 165, cm, 04/18/20 9:20:00 EST, Height [...] Dates Health Status Cl inical Service Informant Asthma Discharge Diagnosis 10/29/20 Chronic hepatitis C Discharge Diagnosis 10/29/20 Vital Signs Most recent to oldest [Reference Range]: 1 Height 175 cm (10/29/20 2:46 PM) Weight 85.0 kg (10/29/20 2:46 PM) Oxygen Saturation [94-100 %] 97 % (10/29/20 2:46 PM) Pulse Rate [55-90 bpm] 89 bpm (10/29/20 2:46 PM) Body Mass Index [18.5-24.99] 27.76 *H* (10/29/20 2:46 PM) Blood Pressure [90-138/55-84 mm Hg] 116/ 60mm Hg (10/29/20 2:46 PM) Mode of Delivery (Oxygen) Room air (10/29/20 2:46 PM) Blood pressure sites Arm, left (10/29/20 2:46 PM) Weight Obtained Via Standing scale (10/29/20 2:46 PM) Social History Social History Type Response Smoking Status Former smoker; Other : Quit smoking age 44; entered on: 08/22/15 Sex
--- OUTSIDE RECORDS SUMMARY | 2023-04-10 14:18 | XMS_ITS | Continuity of Care Document ---
Author Name Unknown Organization [facility]ar lt Address [address] [place] [address]- Care Team Providers Care Experimental Technician Name Role Phone Otf Zelaya MD Primary Care Physician [phone] [place] [facility] [place]14/21 [facility] Adult [address] [place] [address]- Attending Physician: Otf Zelaya MD Allergies, Adverse [...] 12/04/21 15:25:00 EDT, Route to Pharmacy Electronically, [facility]/pharmacy #[id number], Partial fill upon patient requestif the prescription is for a schedule II opioid charo... Start Date: 12/04/21 Status: Ordered aspirin 81 mg oral delayed release tablet 81 mg, 1, tablet, By Mouth, Daily, Do not crush, chew, or split, # 90 tablet, Refills 1, Tot. Refills 1, Maintenance, 04/22/21 8:20:00 EST, Route to Pharmacy Electronically, [facility]/pharmacy #[id number], Partial fill upon patient request if the prescription is... Start Date: 04/22/21 Status: Ordered atorvastatin 10 mg oral tablet 1 tablet, By Mouth, Daily, # 90 tablet, 3 Refills, Maintenance, 12/04/21 15:40:00 EDT, [facility]/pharmacy#[id number], 175, cm, 12/04/21 15:07:00 EDT, Height, 88.5, kg, 04/11/21 0:05:00 EST, Dry Weight Start Date: 12/04/21 Status: Ordered Cardizem CD 120 mg/24 hours oral capsule, extended release 120 mg, 1, capsule, By Mouth, Daily, # 90 capsule, Refills 3, Tot. Refills 3, Maintenance, 05/08/2209:46:00 EST, Route to Pharmacy Electronically, [facility]/pharmacy #[id number], Partial fill upon patient request if the prescription is for a schedule II opioid d... Start Date: 05/08/21 Stop Date: 05/03/22 Status: Ordered fluticasone 50 mcg/inh nasal spray See Instructions, USE 2 SPRAYS IN EACH NOSTRIL DAILY, # 48 mL, 3 Refills, [id number], 90, USE 2 SPRAYS IN EACH NOSTRIL DAILY, 175, cm, 08/12/21 14:14:00 EDT, Height, 88.5, kg, 04/11/21 0:05:00 EST, Dry Weight Start Date: 09/12/21 Status: Ordered gabapentin 100 mg oral capsule 100 mg, 1, capsule, By Mouth, 3 times a day, # 270 capsule, Refills 3, Tot. Refills 3, Maintenance,12/04/21 15:40:00 EDT, Route to Pharmacy Electronically, [facility]/pharmacy #[id number], Partial fill upon patient request if the prescription is for a schedule II... Start Date: 12/04/21 Status: Ordered metFORMIN 500 mg oral tablet 1 tablet, By Mouth, 2 times a day, # 180 tablet, 3 Refills, Maintenance, 12/04/21 15:40:00 EDT, [facility]/pharmacy #[id number], 175, cm, 12/04/21 15:07:00 EDT, Height, 88.5, kg, 04/11/21 0:05:00 EST, Dry Weight Start Date: 12/04/21 Status: Ordered Metoprolol Tartrate 25 mg oral tablet 0.5 tablet, By Mouth, 2 times a day, # 90 tablet, 3 Refills, Maintenance, 12/04/21 15:20:00 EDT, [facility]/pharmacy #[id number], 175, cm, 12/04/21 15:07:00 EDT, Height, 88.5, kg, 04/11/21 0:05:00 EST, Dry Weight Start Date: 12/04/21 Stop Date: 11/29/22 Status: Ordered nitroglycerin 0.4 mg sublingual tablet 1 tablet, By Mouth, Every 5 minutes, PRN NEEDED FOR MODERATE CHEST PAIN (NOT TO EXCEED 3 DOSES/15 MINUTES, IF PAIN PERSISTS, SEEK MEDICATION ATTENTION), # 25 tablet, 0 Refills, Maintenance, 06/11/21 10:00:00 EDT, [facility]/pharmacy #[id number], 175, cm, ... Start Date: [...] team information Personnel Name: Nathalie ARAGON, Otf De lRosario Address: Address: [address] [place] [id number]
--- OUTSIDE RECORDS SUMMARY | 2023-04-10 14:18 | XMS_ITS | Continuity of Care Document ---
Author Name Unknown Organization [facility] ter Address [address] [place] [id number]- Care Team Providers Care Business Solutions Architect Name Role Phone Nathalie ARAGON, Otf Del Rosario Primary Care Physician [place] [facility] [place] 06/28/[address] [address]- Discharge Disposition: A-D/C Home Attending Physician: Efraín Alberts MD Admitting Physician: Porter Ross MD Referring Physician: Not on Staff, Referring [...] 06/27/20 15:24:00 EDT, Route to Pharmacy Electronically, [facility], Partial fill uponpatient request if the prescription is for a schedu... Start Date: 06/27/20 Status: Ordered lidocaine 4% topical film 1 patch, Topically, Daily, do not leave patch on for more than 8 hours at a time Apply to Right shoulder and Rt knee, # 60 patch, 0 Refills, Maintenance, 06/27/20 15:56:00 EDT, Film, [facility], Partial fill upon patient request if the... Start Date: 06/27/20 Status: Ordered lidocaine 5% topical film See Instructions, Topically Daily- apply 1 patch to right shoulder and 1 to right knee daily. remove patches after 12 hours, # 60 patch, 2 Refills, Maintenance, 06/27/20 15:26:00 EDT, [facility] Partial fill upon patient reques... Start [...] 2 Refills, Maintenance, 06/27/20 15:24:00 EDT, Tablet, [facility], Partial fill upon patient request if [...] 0 Refills, Maintenance, 06/27/20 15:23:00 EDT, Capsule, [facility], Partial fill upon patient request if the prescription is for a schedule II opioid drug., 17... Start Date: 06/27/20 Status: Ordered oxyCODONE 5 mg oral tablet 5 mg, Tablet, By Mouth, Every 4 hours, PRN for Pain , Severe, Routine, 06/28/20 8:50:00 EDT Start Date: 06/28/20 Stop Date: 06/28/20 Status: Discontinued Pen [place], 30 G x 8 mm BD Ultra [...] 06/27/20 15:28:00 EDT, Route to Pharmacy Electronically, [facility], 175, cm, 06/27/20 3:49:00 [...] 15:06:48, Compound Start Date: 04/06/15 Status: Ordered Tylenol Extra Strength 500 mg oral tablet 2 tablet = 1,000 mg, By Mouth, 3 times a day, for 14 days, not to exceed 3000 mg/day, # 84 tablet, 0 Refills, Acute 07/11/20 15:27:00 EDT, 06/27/20 15:27:00 EDT, Tablet, [facility], Partial fill upon patient request if the prescription i... Start Date: 06/27/20 Stop Date: 07/11/20 Status: Ordered Ventolin HFA 108 mcg/inh inhalation aerosol with adapter 2 puffs, Inhalation, 4 times a day, PRN for wheezing, # 8 Gm, 11 Refills, Maintenance, 04/18/20 9:32:00 EST, Aerosol, [facility]/pharmacy #[id number], 165, cm, 04/18/20 9:20:00 EST, Height Start Date: 04/18/20 Status: Ordered Zestril 20 mg oral tablet 20 mg, Tablet, By Mouth, 06/28/20 9:00:00 EDT Start Date: 06/28/20 Stop Date: 06/28/20 Status: Completed Zetia 10 mg oral tablet [...] Active 1colonoscopy 2004 positive polyp, repeat 2007 Results Radiology Reports * Exam Date Time Procedure Performing Provider Status 06/20/20 4:53 PM Humerus Min 2 Views Right Maryanne Shannon; Auth (Verified) Notes: (Humerus Min 2 Views Right) Reason For Exam: Trauma RESULT: Humerus Min 2 Views Right Humerus Min 2 Views Right, 2 views Hx of Present Illness: from SNF, fell Thursday transferring from w c to bed, hit his right shoulder on railing, denies head injury but states I did not remember the incident until yesterday , reports chronic pain to LE with no new injury, reports sore throat x days, denies cough; Reason: Trauma; Clinical Question(s): Other: COMPARISON: None. FINDINGS: No fractures or bone lesions. The elbow joint appears intact. Alignment and bone mineralization arepreserved. Moderate right glenohumeral joint osteoarthritis is noted. There is calcific tendinopathy. An IV line is noted in the antecubital region. IMPRESSION: No acute fracture. Calcific tendinopathy in the rotator cuff. WSN: [id number] Ordering Physician: Fanny Bland Dictated By: Priyanka Mack MD Dictated Date/Time: 06/20/20 4:58 pm Reviewed By: Priyanka Mack MD Signed By: Priyanka Mack MD Signed Date/Time: 06/20/20 4:58 pm Transcribed By: JAREN Transcribed Date/Time: 06/20/20 4:57 pm * Exam Date Time Procedure Performing Provider Status 06/20/20 4:53 PM Shoulder Min 2 Views Right Alesha Shannon; Auth (Verified) Notes: (Shoulder Min 2 Views Right) Reason For Exam: Trauma RESULT: Shoulder Min 2 Views Right Shoulder Min 2 Views Right, 2 views Hx of Present Illness: from SNF, fell Thursday transferring from w c to bed, hit his right shoulder on railing, denies head injury but states I did not remember the incident until yesterday , reports chronic pain to LE with no new injury, reports sore throat x days, denies cough; Reason: Trauma; Clinical Question(s): Other: COMPARISON: Chest radiograph of 03/23/2018. FINDINGS: No fracture or dislocation. There is moderate narrowing of the glenohumeral joint with narrowing of the acromiohumeral interval. Lobulated calcifications are noted lateral to the greater tuberosity. Moderate degenerative changes of the AC joint. The portion of the clavicle included on the exam is intact. The visualized lung demonstrates mild increased haziness which may be atelectasis. IMPRESSION: No acute fracture. 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 Calcific tendinopathy. WSN: [id number] Ordering Physician: Fanny Bland Dictated By: Priyanka Mack MD Dictated Date/Time: 06/20/20 4:57 pm Reviewed By: Priyanka Mack MD Signed By: Priyanka Mack MD Signed Date/Time: 06/20/20 4:57 pm Transcribed By: JAREN Transcribed Date/Time: 06/20/20 4:56 pm * Exam Date Time Procedure Performing Provider Status 06/20/20 4:53 PM Foot Min 3 Views Right Beth Shannon; Auth (Verified) Notes: (Foot Min 3 Views Right) Reason For Exam: Trauma RESULT: Foot Min 3 Views Right Ankle Min 3 Views Right, Foot Min 3 Views Right Hx of Present Illness: from SNF, fell Thursday transferring from w c to bed, hit his right shoulder on railing, denies head injury but states I did not remember the incident until yesterday , reports chronic pain to LE with no new injury, reports sore throat x days, denies cough; Reason: Trauma; Clinical Question(s): Fracture. COMPARISON: 10/14/2019. FINDINGS: No evidence of acute or healing fracture, dislocation or bone lesion. Intact ankle mortise and talar dome. Mild degenerative changes to the first metatarsophalangeal joint. Posterior and plantar calcaneal spurs. No significant soft tissue swelling. Scattered vascular calcifications. IMPRESSION: No acute abnormality. WSN: [id number] Ordering Physician: Fanny Bland Dictated By: Toby Owens MD Dictated Date/Time: 06/20/20 5:04 pm Reviewed By: Toby Owens MD Signed By: Toby Owens MD Signed Date/Time: 06/20/20 5:04 pm Transcribed By: CSJose Transcribed Date/Time: 06/20/20 4:55 pm * Exam Date Time Procedure Performing Provider Status 06/20/20 4:53 PM Ankle Min 3 Views Right Collin Shannon; Auth (Verified) Notes: (Ankle Min 3 Views Right) Reason For Exam: Trauma RESULT: Ankle Min 3 Views Right Ankle Min 3 Views Right, Foot Min 3 Views Right Hx of Present Illness: from SNF, fell Thursday transferring from c to bed, hit his right shoulder on railing, denies head injury but states I did not remember the incident until yesterday , reports chronic pain to LE with no new injury, reports sore throat x days, denies cough; Reason: Trauma; Clinical Question(s): Fracture. COMPARISON: 10/14/2019. FINDINGS: No evidence of acute or healing fracture, dislocation or bone lesion. Intact ankle mortise and talar dome. Mild degenerative changes to the first metatarsophalangeal joint. Posterior and plantar calcaneal spurs. No significant soft tissue swelling. Scattered vascular calcifications. IMPRESSION: No acute abnormality. WSN: [id number] Ordering Physician: Fanny Bland Dictated By: Toby Owens MD Dictated Date/Time: 06/20/20 5:04 pm Reviewed By: Toby Owens MD Signed By: Toby Owens MD Signed Date/Time: 06/20/20 5:04 pm Transcribed By: CSJose Transcribed Date/Time: 06/20/20 4:55 pm * Exam Date Time Procedure Performing Provider Status 06/20/20 4:53 PM Chest 2 Views Frontal and Lat Alesha Shannon; Auth (Verified) Notes: (Chest 2 Views Frontal and Lat) Reason For Exam: Traumatic Chest Pain;Other: RESULT: Chest 2 Views Frontal and Lat Chest 2 Views Frontal and Lat INDICATION: Hx of Present Illness: from SNF, fell Thursday transferring from w c to bed, hit his right shoulder on railing, denies head injury but states I did not remember the incident until yesterday , reports chronic pain to LE with no new injury, reports sore throat x days, denies cough; Reason:Other:; Traumatic Chest Pain; Clinical Question(s): Other:; Pneumothorax, Fracture COMPARISON: 03/23/2018. FINDINGS: LINES AND TUBES: None. LUNGS AND PLEURA: The pulmonary vascularity is normal. Biapical scarring is noted. There is mild increased haziness in the left base. No effusion or pneumothorax. HEART, MEDIASTINUM AND NAHEED: The patient slightly rotated which prevents evaluation of the right mediastinal contour. Within theconfines, the cardiac silhouette, mediastinal contours, and hilar structures are unchanged. BONES AND SOFT TISSUES: No acute abnormality. IMPRESSION: Left basilar haziness which may be atelectasis, clinical correlation is advised. No pneumothorax. WSN: [id number] Ordering Physician: Fanny Bland Dictated By: Priyanka Mack MD Dictated Date/Time: 06/20/20 4:56 pm Reviewed By: Priyanka Mack MD Signed By: Priyanka Mack MD Signed Date/Time: 06/20/20 4:56 pm Transcribed By: JAREN Transcribed Date/Time: 06/20/20 4:54 pm Vital Signs Most recent to oldest [Reference Range]: 1 2 3 Height 175 cm (06/28/20 7:59 AM) 175 cm (06/28/20 3:13 AM) 175 cm (06/27/20 7:41 PM) Weight 78 kg (06/20/20 11:41 PM) 81.8 kg (06/20/20 11:19 PM) Oxygen Saturation [94-100 %] 98 % (06/28/20 7:59 AM) 99 % (06/28/20 3:13 AM) 97 % (06/27/20 7:41 PM) Pulse Rate [55-90 bpm] 77 bpm (06/28/20 7:59 AM) 70 bpm (06/28/20 3:13 AM) 79 bpm (06/27/20 7:41 PM) Body Mass Index [18.5-24.99] 25.47 *H* (06/20/20 11:41 PM) Blood Pressure [90-138/55-84 mm Hg] 102/63mm Hg (06/28/20 7:59 AM) 99/57mm Hg (06/28/20 7:41 AM) 99/57mm Hg (06/28/20 3:13 AM) Respiratory Rate [16-30 br/min] 16 br/min (06/28/20 9:44 AM) 18 br/min (06/28/20 7:59 AM) 21 br/min (06/28/20 3:13 AM) Temperature [96.8-100.4 DegF] 97.9 DegF (06/28/20 7:59 AM) 98.4 DegF (06/28/20 3:13 AM) 97.8 DegF (06/27/20 7:41 PM) Mode of Delivery (Oxygen) Room air (06/28/20 7:59 AM) Room air (06/28/20 3:13 AM) Room air (06/27/20 7:41 PM) Blood pressure sites Arm, left (06/28/20 7:59 AM) Arm, left (06/28/20 3:13 AM) Arm, left (06/27/20 7:41 PM) Temperature Route Oral (06/28/20 7:59 AM) Oral (06/28/20 3:13 AM) Oral (06/27/20 7:41 PM) Dry Weight 78 kg (06/20/20 11:41 PM) Weight Obtained Via Bed scale (06/20/20 11:19 PM) Social History Social History Type Response Smoking Status Former smoker; Other : Quit smoking age 44; entered on: 08/22/15 Sex
--- OUTSIDE RECORDS SUMMARY | 2023-04-10 14:18 | XMS_ITS | Continuity of Care Document ---
Author Name Unknown Organization [facility] Address [address] [place] [id number]- Care Team Providers Care Harness Builder Name Role Phone Otf Zelaya MD Primary Care Physician [phone] Encounter [facility] [place](s): 04/23/21 - 05/23/21 [facility] [address] [place] [address]- [place] Allergies, Adverse Reactions, Alerts Substance Reaction Severity [...] EST, Route to Pharmacy Electronically, [id number], 175, cm, 04/22/21 8:02:00 EST, Height, 88.5, kg, 04/11/21 0:05:00 EST, Dry Weight Start Date: 04/22/21 Status: Ordered metFORMIN 500 mg oral tablet 1 tablet = 500 mg, By Mouth, 2 times a day, # 180 tablet, 1 Refills, Maintenance, 04/22/21 8:22:00 EST, Tablet, [facility]/pharmacy #[id number], Partial fill upon [...] tablet, 0 Refills, Maintenance, 05/17/21 8:29:00 EST, [facility]/pharmacy #[id number], 175, cm, 05/08/21 10:15:00 ES... Start Date: 05/17/21 Status: Ordered nitroglycerin 0.4 mg sublingual tablet 1 tablet, By Mouth, Every 5 minutes, PRN NEEDED FOR MODERATE CHEST PAIN (NOT TO EXCEED 3 DOSES/15 MINUTES, IF PAIN PERSISTS, SEEK MEDICATION ATTENTION), # 25 tablet, 0 Refills, [id number], 175, cm, 05/08/21 10:15:00 EST, Height, 88.5, [...]
--- OUTSIDE RECORDS SUMMARY | 2023-04-10 14:18 | XMS_ITS | Continuity of Care Document ---
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 Refills 0, Maintenance, 08/12/21 14:24:00 EDT, Instructions Replace Required Details, Route to Pharmacy El... Start Date: 08/12/21 Status: Ordered aspirin 81 mg oral delayed release tablet 81 mg, 1, tablet, By Mouth, Daily, Do not crush, chew, or split, # 90 tablet, Refills 1, Tot. Refills 1, Maintenance, 04/22/21 8:20:00 EST, Route to Pharmacy Electronically, [facility]/pharmacy #[id number], Partial fill upon patient request if the prescription is... Start Date: 04/22/21 Status: Ordered atorvastatin 10 mg oral tablet 1 tablet = 10 mg, By Mouth, Daily, # 30 tablet, 6 Refills, Maintenance, 04/22/21 8:42:00 EST, [facility]/pharmacy #[id number], Partial fill upon patient request if the prescription is for a schedule II opioid drug., 175, cm, 04/22/21 8:02:00 EST, Height, 88.5, kg,... Start Date: 04/22/21 Status: Ordered Cardizem CD 120 mg/24 hours oral capsule, extended release 120 mg, 1, capsule, By Mouth, Daily, # 90 capsule, Refills 3, Tot. Refills 3, Maintenance, 05/08/2209:46:00 EST, Route to Pharmacy Electronically, [facility]/pharmacy #[id number], Partial fill upon patient request if the prescription is for a schedule II opioid d... Start Date: 05/08/21 Stop Date: 05/03/22 Status: Ordered doxycycline hyclate 100 mg oral capsule 1 capsule = 100 mg, By Mouth, 2 times a day, # 20 capsule, 0 Refills, Maintenance, 07/24/21 10:28:00 EDT, Capsule, [facility]/pharmacy #[id number], Partial fill upon patient request if the prescription is for a schedule II opioid drug., 175, cm, 07/24/21 10:07:00... Start Date: 07/24/21 Status: Ordered Flonase Sensimist 27.5 mcg/inh nasal spray 1 sprays, Nares, Both, Daily, PRN Nasal Congestion, Maintenance, 06/21/20 8:35:00 EDT Start Date: 06/21/20 Status: Ordered gabapentin 100 mg oral capsule 100 mg, 1, capsule, By Mouth, 3 times a day, # 270 capsule, Refills 1, Tot. Refills 1, Maintenance,04/22/21 8:20:00 EST, Route to Pharmacy Electronically, [facility]/pharmacy #[id number], Partial fill upon patient request if the prescription is for a schedule II... Start Date: 04/22/21 Status: Ordered lisinopril 20 mg oral tablet 1, tablet, By Mouth, Daily, # 90 tablet, Refills 1, Tot. Refills 1, 04/22/21 8:20:00 EST, Route to Pharmacy Electronically, [facility]/pharmacy #[id number], 175, cm, 04/22/21 8:02:00 EST, Height, 88.5, kg, 04/11/21 0:05:00 EST, Dry Weight Start Date: 04/22/21 Status: Ordered metFORMIN 500 mg oral tablet 1 tablet = 500 mg, By Mouth, 2 times a day, # 180 tablet, 1 Refills, Maintenance, 04/22/21 8:22:00 EST, Tablet, [facility]/pharmacy #[id number], Partial fill upon patient request if [...] 0 Refills, Maintenance, 06/11/21 10:00:00 EDT, [facility]/pharmacy #[id number], 175, cm, ... Start Date: 06/11/21 [...] Refills, Maintenance, 04/22/21 8:20:00 EST, Tablet, [facility]/pharmacy #[id number], Partial fill upon patient request if [...] spondylosis)(Confirmed) Active Diabetes mellitus, type II(Confirmed) Active Gout(Confirmed) Active History of ST elevation myoc ardial infarction(Confirmed) Active HTN (hypertension)(Confirmed) Active Hypercholesterolemia(Confirmed) Active Erectile dysfunction(Confirmed) Active Left knee injury(Confirmed) Active Arthralgia(Confirmed) Active Knee pain, bilateral(Confirmed) Active Diabetic neuropathy, type II diabetes mellitus(Confirmed) Active 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) Active 1colonoscopy 2004 positive polyp, repeat 2007 Vital Signs Most recent to oldest [Reference Range]: 1 Height 175 cm (08/12/21 2:14 PM) Weight 86.7 kg (08/12/21 2:14 PM) Oxygen Saturation [94-100 %] 98 % (08/12/21 2:14 PM) Pulse Rate [55-90 bpm] 80 bpm (08/12/21 2:14 PM) Body Mass Index [18.5-24.99] 28.31 *H* (08/12/21 2:14 PM) Blood Pressure [90-138/55-84 mm Hg] 104/ 54mm Hg (08/12/21 2:14 PM) Mode of Delivery (Oxygen) Room air (08/12/21 2:14 PM) Blood pressure sites Arm, left (08/12/21 2:14 PM) Weight Obtained Via Standing scale (08/12/21 2:14 PM) Social History Social History Type Response Smoking Status Former smoker; Other : Quit smoking age 44; entered on: 08/22/15 Sex
--- OUTSIDE RECORDS SUMMARY | 2023-04-10 14:18 | XMS_ITS | Continuity of Care Document ---
Author Name Unknown Organization [facility] Sud[facility]ak[facility] lt Address [address] [place] [address]- Care Team Providers Care Route Rider Name Role Phone Otf Zelaya MD Primary Care Physician [phone] Encounter [facility] [place] Date(s): 07/06/20 - 08/05/20 [facility] Adult [address] [place] [address]- Allergies, Adverse Reactions, Alerts Substance Reaction Severity [...] 06/27/20 15:24:00 EDT, Route to Pharmacy Electronically, [facility], Partial fill uponpatient request if the prescription is for a schedu... Start Date: 06/27/20 Status: Ordered lidocaine 4% topical film 1 patch, Topically, Daily, do not leave patch on for more than 8 hours at a time Apply to Right shoulder and Rt knee, # 60 patch, 0 Refills, Maintenance, 06/27/20 15:56:00 EDT, Film, [facility], Partial fill upon patient request if the... Start Date: 06/27/20 Status: Ordered lidocaine 5% topical film See Instructions, Topically Daily- apply 1 patch to right shoulder and 1 to right knee daily. remove patches after 12 hours, # 60 patch, 2 Refills, Maintenance, 06/27/20 15:26:00 EDT, [facility] Partial fill upon patient reques... Start [...] 2 Refills, Maintenance, 06/27/20 15:24:00 EDT, Tablet, [facility], Partial fill upon patient [...] 0 Refills, Maintenance, 07/16/20 16:29:00 EDT, Capsule, [facility]/pharmacy #[id number], Partial fill upon patient request if the prescription is for a schedule II opioid drug., 175, cm,... Start Date: 07/16/20 Stop Date: 07/30/20 Status: Ordered Pen [place]is[place], 30 G x 8 mm BD Ultra [...] 06/27/20 15:28:00 EDT, Route to Pharmacy Electronically, [facility], 175, cm, 06/27/20 3:49:00 [...]
--- OUTSIDE RECORDS SUMMARY | 2023-04-10 14:18 | XMS_ITS | Continuity of Care Document ---
Author Name Unknown Organization [facility] Sudhakar lt Address [address] [place] [address]- Care Team Providers Care Flatware Maker Name Role Phone Otf Zelaya MD Primary Care Physician [phone] [place] [facility] [place] 07[place]10[place]21 [facility] Adult [address] [place] [address]- Attending Physician: Otf Zelaya MD Allergies, Adverse [...] Maintenance,04/22/21 8:20:00 EST, Route to Pharmacy Electronically, [facility]/pharmacy #[id number], Partial fill upon patient request if the prescription is for a schedule II... Start Date: 04/22/21 Status: Ordered lisinopril 20 mg oral tablet 1, tablet, By Mouth, Daily, # 90 tablet, Refills 1, Tot. Refills 1, 04/22/21 8:20:00 EST, Route to Pharmacy Electronically, [facility]/pharmacy #[id number], 175, cm, 04/22/21 8:02:00 EST, Height, 88.5, kg, 04/11/21 0:05:00 EST, Dry Weight Start Date: 04/22/21 Status: Ordered metFORMIN 500 mg oral tablet 1 tablet = 500 mg, By Mouth, 2 times a day, # 180 tablet, 1 Refills, Maintenance, 04/22/21 8:22:00 EST, Tablet, [facility]/pharmacy #[id number], Partial fill upon patient [...] 0 Refills, Maintenance, 06/11/21 10:00:00 EDT, [facility]/pharmacy #[id number], 175, cm, 05/08/... Start Date: 06/11/21 [...] 1 Refills, Maintenance, 04/22/21 8:20:00 EST, Tablet, [facility]/pharmacy #[id number], Partial fill upon patient request if the prescription is for a schedule II opioid drug., 175, cm, 04/22/21 8:02:00 EST,... Start Date: 04/22/21 Status: Ordered Ventolin HFA 108 mcg/inh inhalation aerosol with adapter 2 puffs, Inhalation, 4 times a day, PRN for wheezing, # 8 Gm, 11 Refills, Maintenance, 04/22/21 8:20:00 EST, Aerosol, [facility]/pharmacy #[id number], 175, cm, 04/22/21 8:02:00 EST, Height, [...] Most recent to oldest [Reference Range]: 1 Blood Pressure [90-138/55-84 mm Hg] 135/ 65mm Hg (06/10/21 12:37 PM) Social History Social History Type Response Smoking Status Former smoker; Other : Quit smoking age 44; entered on: 08/22/15 Sex
--- OUTSIDE RECORDS SUMMARY | 2023-04-10 14:18 | XMS_ITS | Continuity of Care Document ---
Author Name Unknown Organization [facility] Sudhakar lt Address [address] [place] [address]- Care Team Providers Care Pipe Organ Technician Name Role Phone Otf Zelaya MD Primary Care Physician Encounter [facility] Date(s): 07/24/21 - 07/31/21 [facility] Adult [address] [place] [address]- Attending Physician: Otf Zelaya MD Allergies, Adverse [...] EST, Route to Pharmacy Electronically, [facility]/pharmacy #[id number], Partial fill [...] Maintenance, 05/08/2209:46:00 EST, Route to Pharmacy Electronically, [facility]/pharmacy #[id number], Partial fill upon patient request if the prescription is for a schedule II opioid d... Start Date: 05/08/21 Stop Date: 05/03/22 Status: Ordered doxycycline hyclate 100 mg oral capsule 1 capsule = 100 mg, By Mouth, 2 times a day, # 20 capsule, 0 Refills, Maintenance, 07/24/21 10:28:00 EDT, Capsule, [facility]/pharmacy #[id number], [...] EST, Route to Pharmacy Electronically, [facility]/pharmacy #[id number], Partial fill upon patient request if the prescription is for a schedule II... Start Date: 04/22/21 Status: Ordered lisinopril 20 mg oral tablet 1, tablet, By Mouth, Daily, # 90 tablet, Refills 1, Tot. Refills 1, 04/22/21 8:20:00 EST, Route to Pharmacy Electronically, [facility]/pharmacy #[id number], 175, cm, 04/22/21 8:02:00 EST, Height, 88.5, kg, 04/11/21 0:05:00 EST, Dry Weight Start Date: 04/22/21 Status: Ordered metFORMIN 500 mg oral tablet 1 tablet = 500 mg, By Mouth, 2 times a day, # 180 tablet, 1 Refills, Maintenance, 04/22/21 8:22:00 EST, Tablet, [facility]/pharmacy #[id number], Partial fill [...] Refills, Maintenance, 06/11/21 10:00:00 EDT, [facility]/pharmacy #[id number], 175, cm, ... Start Date: 06/11/21 [...] Dry Weight Start Date: 04/23/21 Status: Ordered predniSONE 20 mg oral tablet 1 tablet = 20 mg, By Mouth, Daily, # 10 tablet, 0 Refills, Maintenance, 07/24/21 10:28:00 EDT, Tablet, [id number], Partial fill upon patient request if the prescription is for a schedule II opioid drug., 175, cm, 07/24/21 10:07:00 EDT, Height,... Start Date: 07/24/21 Status: Ordered Sling See Instructions, # 1 [...] tablet, 3 Refills, Maintenance, 04/22/21 8:20:00 EST, [facility]/pharmacy #[id number], 175, cm, 04/22/21 8:02:00 EST, Height, [...] oldest [Reference Range]: 1 Height 175 cm (07/24/21 10:07 AM) Weight 84.1 kg (07/24/21 10:07 AM) Oxygen Saturation [94-100 %] 98 % (07/24/21 10:07 AM) Pulse Rate [55-90 bpm] 99 bpm *H* (07/24/21 10:07 AM) Body Mass Index [18.5-24.99] 27.46 *H* (07/24/21 10:07 AM) Blood Pressure [90-138/55-84 mm Hg] 122/ 60mm Hg (07/24/21 10:07 AM) Temperature [96.8-100.4 DegF] 97.6 DegF (07/24/21 10:07 AM) Blood pressure sites Arm, left (07/24/21 10:07 AM) Temperature Route Oral (07/24/21 10:07 AM) Weight Obtained Via Standing scale (07/24/21 10:07 AM) Social History Social History Type Response Smoking Status Former smoker; Other : Quit smoking age 44; entered on: 08/22/15 Sex
--- OUTSIDE RECORDS SUMMARY | 2023-04-10 14:18 | XMS_ITS | Continuity of Care Document ---
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) - 04/15/19 Chronic hepatitis C(Discharge Diagnosis) - 04/15/19 Diabetes mellitus, type II(Discharge Diagnosis) - 04/15/19 HTN (hypertension)(Discharge Diagnosis) - 04/15/19 Hypercholesterolemia(Discharge Diagnosis) - 04/15/19 Allergic Rhinitis(Discharge Diagnosis) - 04/15/19 CAD (coronary artery disease)(Discharge Diagnosis) - 04/15/19 Asthma(Discharge Diagnosis) - 04/15/19 Attending Physician: Otf Zelaya MD Allergies, Adverse [...] each, 11 Refills, Maintenance, 04/15/19 8:56:00 EST, [facility]/pharmacy #[id number], 2 sprays Nasal Daily,x30 days, 165, [...] EST Start Date: 02/10/18 Status: Ordered Pen Osgood, 30 G x 8 mm BD Ultra [...] 04/15/19 8:56:00 EST, Route to Pharmacy Electronically, [facility]/pharmacy #[id number], 165, cm, 04/15/19 8:45:00 EST, Height, 80, kg, 03/23/18 18:39:00 EST, Dry Weight Start Date: 04/15/19 Status: Ordered Singulair 10 mg oral tablet 10 mg, 1, tablet, By Mouth, Daily, # 90 tablet, Refills 3, Tot. Refills 3, Maintenance, 04/15/19 9:15:00 EST, Route to Pharmacy Electronically, [facility]/pharmacy #[id number], 165, cm, 04/15/19 8:45:00 EST, Height, [...] 04/15/19 8:56:00 EST, Route to Pharmacy Electronically, [facility]/pharmacy #[id number], 165, cm, 04/15/19 8:45:00 EST, Height, 80, kg, 03/23/18 18:39:00 EST, Dry Weight Start Date: 04/15/19 Status: Ordered Zetia 10 mg oral tablet 1 tablet = 10 mg, By Mouth, Daily, # 90 tablet, 3 Refills, Maintenance, 04/15/19 8:56:00 EST, [facility]/pharmacy #[id number], 165, cm, 04/15/19 8:45:00 EST, Height, [...] Effective Dates Health Status Clinical Service Informant CKD stage 3 due to type 2 diabetes mellitus Discharge Diagnosis 04/15/19 Chronic hepatitis C Discharge Diagnosis 04/15/19 Diabetes mellitus, type II Discharge Diagnosis 04/15/19 HTN (hypertension) Discharge Diagnosis 04/15/19 Hypercholesterolemia Discharge Diagnosis 04/15/19 Allergic Rhinitis Discharge Diagnosis 04/15/19 CAD (coronary artery disease) Discharge Diagnosis 04/15/19 Asthma Discharge Diagnosis 04/15/19 Vital Signs Most recent to oldest [Reference Range]: 1 Height 165 cm (04/15/19 8:45 AM) Weight 90.2 kg (04/15/19 8:45 AM) Oxygen Saturation [94-100 %] 98 % (04/15/19 8:45 AM) Pulse Rate [55-90 bpm] 68 bpm (04/15/19 8:45 AM) Body Mass Index [18.5-24.99] 33.13 *>HHI* (04/15/19 8:45 AM) Blood Pressure [90-138/55-84 mm Hg] 116/ 76mm Hg (04/15/19 8:45 AM) Respiratory Rate [16-30 br/min] 12 br/mi n *L* (04/15/19 8:45 AM) Temperature [96.8-100.4 DegF] 97.4 DegF (04/15/19 8:45 AM) Mode of Delivery (Oxygen) Room air (04/15/19 8:45 AM) Blood pressure sites Arm, left (04/15/19 8:45 AM) Temperature Route Oral (04/15/19 8:45 AM) Weight Obtained Via Standing scale (04/15/19 8:45 AM) Social History Social History Type Response Smoking Status Former smoker; Other : Quit smoking age 44; entered on: 08/22/15 Sex
--- OUTSIDE RECORDS SUMMARY | 2023-04-10 14:18 | XMS_ITS | Continuity of Care Document ---
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 Role Phone Otf Zelaya MD Primary Care Physician Encounter [facility] [place] Date(s): 12/24/22 - 12/31/22 [facility] Adult [address] [place] [address]- Encounter Diagnosis Chronic kidney disease, stage 3b(Discharge Diagnosis) - 12/24/22 Diabetes mellitus, type II(Discharge Diagnosis) - 12/24/22 Diabetic neuropathy, type II diabetes mellitus(Discharge Diagnosis) - 12/24/22 History of gout(Discharge Diagnosis) - 12/24/22 Hypercholesterolemia(Discharge Diagnosis) - 12/24/22 Attending Physician: Otf Zelaya MD Allergies, Adverse [...] 12/24/22 11:59:00 EDT, Route to Pharmacy Electronically, [facility]/pharmacy #[id number], Partial fill upon patient requestif [...] tablet, 3 Refills, Maintenance, 12/24/22 11:59:00 EDT, [facility]/pharmacy#[id number], 175, cm, 12/24/22 11:31:00 EDT, Height, 88.5, kg, 04/11/21 0:05:00 EST, Dry Weight Start Date: 12/24/22 Status: Ordered betamethasone topical valerate 0.1% cream 1 application, Topically, 2 times a day, # 45 Gm, 1 Refills, Maintenance, 12/24/22 11:58:00 EDT, Cream, [facility]/pharmacy #[id number], Partial fill upon patient request if the prescription is for a schedule II opioid drug., 1 application Topically 2 times a day,... Start Date: 12/24/22 Status: Ordered Cardizem CD 120 mg/24 hours oral capsule, extended release 120 mg, 1, capsule, By Mouth, Daily, # 90 capsule, Refills 3, Tot. Refills 3, Maintenance, 12/24/2310:59:00 EDT, Route to Pharmacy Electronically, [facility]/pharmacy #[id number], Partial fill upon patient request if the prescription is for a schedule II opioid d... Start Date: 12/24/22 Status: Ordered fluticasone 50 mcg/inh nasal spray See Instructions, USE 2 SPRAYS IN EACH NOSTRIL DAILY, # 48 mL, 11 Refills, 12/24/22 11:59:00 EDT, [facility]/pharmacy #[id number], 90, USE 2 SPRAYS IN EACH NOSTRIL DAILY, 175, cm, 12/24/22 11:31:00 EDT, Height, 88.5, kg, 04/11/21 0:05:00 EST, Dry Weight Start Date: 12/24/22 Status: Ordered gabapentin 100 mg oral capsule 100 mg, 1, capsule, By Mouth, 3 times a day, # 270 capsule, Refills 3, Tot. Refills 3, Maintenance,12/24/22 11:59:00 EDT, Route to Pharmacy Electronically, [facility]/pharmacy #[id number], Partial fill upon patient request if the prescription is for a schedule II... Start Date: 12/24/22 Status: Ordered metFORMIN 500 mg oral tablet 1 tablet, By Mouth, 2 times a day, # 180 tablet, 3 Refills, Maintenance, 12/24/22 11:59:00 EDT, [facility]/pharmacy #[id number], 175, cm, 12/24/22 11:31:00 EDT, Height, 88.5, kg, 04/11/21 0:05:00 EST, Dry Weight Start Date: 12/24/22 Status: Ordered Metoprolol Tartrate 25 mg oral tablet 0.5 tablet, By Mouth, 2 times a day, # 90 tablet, 3 Refills, Maintenance, 12/24/22 11:59:00 EDT, [facility]/pharmacy #[id number], 175, cm, 12/24/22 11:31:00 EDT, Height, 88.5, kg, 04/11/21 0:05:00 EST, Dry Weight Start Date: 12/24/22 Stop Date: 12/19/23 Status: Ordered nitroglycerin 0.4 mg sublingual tablet 1 tablet, By Mouth, Every 5 minutes, PRN NEEDED FOR MODERATE CHEST PAIN (NOT TO EXCEED 3 DOSES/15 MINUTES, IF PAIN PERSISTS, SEEK MEDICATION ATTENTION), # 25 tablet, 0 Refills, Maintenance, 06/11/21 10:00:00 EDT, [id number], 175, cm, ... Start Date: 06/11/21 [...] 2007 2Per chart review meeting GFR criteria Diagnosis Diagnosis Type Effective Dates Health Status Clinical Service Informant Chronic kidney disease, stage 3b Discharge Diagnosis 12/24/22 Diabetes mellitus, type II Discharge Diagnosis 12/24/22 Diabetic neuropathy, type II diabetes mellitus Discharge Diagnosis 12/24/22 History of gout Discharge Diagnosis 12/24/22 Hypercholesterolemia Discharge Diagnosis 12/24/22 Vital Signs Most recent to oldest [Reference Range]: 1 Height 175 cm (12/24/22 11:31 AM) Weight 88.3 kg (12/24/22 11:31 AM) Oxygen Saturation [94-100 %] 98 % (12/24/22 11:31 AM) Pulse Rate [55-90 bpm] 79 bpm (12/24/22 11:31 AM) Body Mass Index [18.5-24.99 kg/m2] 28.83 kg/m2 *H* (12/24/22 11:31 AM) Blood Pressure [90-138/55-84 mm Hg] 124/ 66mm Hg (12/24/22 11:31 AM) Mode of Delivery (Oxygen) Room air (12/24/22 11:31 AM) Blood pressure sites Arm, left (12/24/22 11:31 AM) Weight Obtained Via Standing scale (12/24/22 11:31 AM) Social History Social History Type Response Smoking Status Former smoker; Other : Quit smoking age 44; entered on: 08/22/15 Sex Note * Patti Levin: PERFORM, SIGN, VERIFY Event Display: Patient Education/Instruction Authored Date: [id number] [facility] *BMP So Rell Ferrera Clinical Summary Name SHAD ANGULO Age 72 Years 1950 PCP Otf Zelaya MD PCP Visit Date 12/24/2022 11:20:00 Additional Instructions: Scheduled Appointments?? Future Appointments ?No Future Appointments Scheduled Follow-Up Instructions ?? With: Address: When: Otf Zelaya MD In 6 months Comments: Physical examination Diagnosis Type 2 diabetes mellitus without complications; Personal history of other diseases of the musculoskeletal system and connective tissue; Pure hypercholesterolemia, unspecified; Venous insufficiency (chronic) (peripheral); Chronic kidney disease, stage 3b; Type 2 diabetes mellitus with diabetic neurop athy, unspecified Medications: Please continue your medications until treatment is completed or stopped by your provider. Discuss any questions related to medications with your provider. New Medications [id number], [address] [place] [id number], [phone] Betamethasone Topical (betamethasone topical valerate 0.1% cream) 1 mariluz Topically twice a day. Refills: 1. Next Dose: Medications to Continue Taking That Have Changed [id number], [address] [place] [id number], [phone] - Diltiazem (Cardizem CD 120 mg/24 hours oral capsule, extended release) 1 capsule Oral Daily. Refills: 3. Next Dose: Medications to Continue with No Changes [id number], [address] [place], [place] [id number], [phone] Albuterol (Ventolin HFA 108 mcg/inh inhalation aerosol with adapter) 2 puff(s) Inhalation 4 times aday as needed for wheezing. Refills: 11. Next Dose: Allopurinol (allopurinol 300 mg oral tablet) 1 tab(s) Oral Daily. Refills: 3. Next Dose: Atorvastatin (atorvastatin 10 mg oral tablet) 1 tab(s) Oral Daily. Refills: 3. Next Dose: Ezetimibe (Zetia 10 mg oral tablet) 1 tab(s) Oral Daily. Refills: 3. Next Dose: Fluticasone Nasal (fluticasone 50 mcg/inh nasal spray) USE 2 SPRAYS IN EACH NOSTRIL DAILY. Refills:11. Next Dose: Gabapentin (gabapentin 100 mg oral capsule) 1 capsule Oral 3 times a day. Refills: 3. Next Dose: Metformin (metFORMIN 500 mg oral tablet) 1 tab(s) Oral twice a day. Refills: 3. Next Dose: Metoprolol (Metoprolol Tartrate 25 mg oral tablet) 0.5 tab(s) Oral twice a day for 90 Days. Refills: 3. Next Dose: These medications were not printed or sent to your pharmacy Aspirin (aspirin 81 mg oral delayed release tablet) 1 tab(s) Oral Daily. Do not crush, chew, or split. Refills: 1. Next Dose: Durable Medical Equipment (One Touch Ultra 2 Glucose Meter) dm 2 E11.9 check blood sugar twice a day. Refills: 0. Next Dose: Durable Medical Equipment (One Touch Ultra Test Strips) dm 2 E11.9 check blood sugar twice a day. Refills: 11. Next Dose: Durable Medical Equipment (Sling) Right arm sling for severe gout right wrist.. Refills: 0. Next Dose: Miscellaneous Rx (1 walker. Use [...] SEEK MEDICATION ATTENTION). Refills: 0. Next Dose: No Longer Take the Following Medications Ticagrelor (ticagrelor 90 mg oral tablet) 1 tab(s) Oral twice a day. Refills: 1. Allergy Info:?? Flomax; aspirin; ibuprofen Medications Given This Visit Future Orders ?No future orders Vital Signs Height 175 cm Weight 88.3 kg BMI 28.83 kg/m2 Blood Pressure 124 mm Hg/66 mm Hg Temperature Pulse Rate 79 bpm Respiratory Rate 02 Sat Mode of Delivery 98 %/Room air You can now view a summary of your hospital visit from the comfort of your home through a free online portal called [facility]. [facility] is a website that allows you to securely view your medical information including discharge summary, medications and follow-up visits. ??You can alsosend a secure electronic message to your doctor???s office to request appointments, renew medications or just ask a question. You can enroll at [email or web address] or register during your next office visit. [...] primary care provider, you may find a [facility] provider by calling [facility] Link at [phone]. [facility], in keeping with [facility] guidance, no longer requires face masks for staff, patientsor visitors in most situations. Similar to time spent indoors at other locations, there is the chance that you were exposed to respiratory viruses during your time with us (such as flu or COVID-19).? If you develop symptoms concerning for a viral respiratory infection, please seek testing (and treatment if indicated) from your medical provider or home test kit. For information about the plan of care including goals and instructions for your diagnosis, please see the patient education orders section of this document. Patient Education Materials?? The content of this educational material or handout may have been modified, supplemented, or adapted from its original content and format to support your individualized medical care. Patient Care team information Care Team Personnel Name: Patti Mcdonald RN Position: [facility] RN Member Role: Primary Care Nurse Name: Shu TURCIOS, Sherly Ashley Position: [facility] Associate Professional Member Role: Primary Care Nurse Address: Address: [address] [facility] [place] [address]- [place] Name: Cathie Barth RN Position: S RN Member Role: Primary Care Nurse Name: Otf Zelaya MD Position: [facility] Physician - Primary Care Member Role: PCP Address: Address: [address] [place] [address]- [place] Name: Daren Jung RN Position: [facility] RN Member Role: Primary Care Nurse Name: Avinash MORRIS, Gretchen Saha Position: [facility] RN Member Role: Primary Care Nurse Care Team Related Persons Name: DENNY ROMANTY Address: home [address] [place] [address] Name: NO, NONE
--- OUTSIDE RECORDS SUMMARY | 2023-04-10 14:18 | XMS_ITS | Continuity of Care Document ---
Author Name Unknown Organization [facility] [place] Sudhakar lt Address [address] [place] [address]- Care Team Providers Care Diagnostic Tech Name Role Phone Otf Zelaya MD Primary Care Physician Encounter [facility] [place] Date(s): 04/22/21 - 04/29/21 [facility] Adult [address] [place] [address]- Attending Physician: Brielle Hutchins NP Referring Physician: Otf Zelaya MD Allergies, [...] 88.5, kg,... Start Date: 04/22/21 Status: Ordered Flonase Sensimist 27.5 mcg/inh nasal [...] 1 Refills, Maintenance, 04/22/21 8:22:00 EST, Tablet, [id number], Partial fill upon patient request if the prescription is for a schedule II opioid drug., 175, cm, 04/22/21 8:02:00 EST,... Start Date: 04/22/21 Status: Ordered metoprolol 25 mg oral tablet 12.5 mg, 0.5, tablet, By Mouth, 2 times a day, # 180 each, Refills 1, Tot. Refills 1, Maintenance, 04/22/21 8:20:00 EST, [id number] Partial fill upon patient request if the prescription is for a schedule II o... Start Date: 04/22/21 Status: Ordered nitroglycerin 0.4 mg sublingual tablet 1 tablet = 0.4 mg, Sublingual, Every 5 minutes, PRN Pain , Moderate, (not to exceed 3 doses/15 min--if pain persists, seek medical attention), # 25 tablet, 0 Refills, Maintenance, 04/22/21 8:20:00 EST, [id number], 175, cm, 04/22/21 8:02:00 EST... Start Date: 04/22/21 Status: Ordered One Touch Delica Lancets See Instructions, # 100 each, Refills 11, Tot. Refills 11, Maintenance, 1 box = 100 lancets dm 2 E11.9 check blood sugar twice a day, 04/23/21 10:43:00 EST, Supply, 175, cm, 04/22/21 8:02:00 EST, Height, 88.5, kg, 04/11/21 0:05:00 EST, Dry Weight Start Date: 04/23/21 Status: Ordered One Touch Ultra 2 Glucose Meter See Instructions, # 1 each, Maintenance, dm 2 E11.9 check blood sugar twice a day, 04/23/21 10:42:00 EST, Supply, 175, cm, 04/22/21 8:02:00 EST, Height, 88.5, kg, 04/11/21 0:05:00 EST, Dry Weight Start Date: 04/23/21 Status: Ordered One Touch Ultra Test Strips [...] 1 Refills, Maintenance, 04/22/21 8:20:00 EST, Tablet, [facility]/pharmacy #[id number], Partial fill upon patient [...] oldest [Reference Range]: 1 Height 175 cm (04/22/21 8:02 AM) Weight 90.1 kg (04/22/21 8:02 AM) Oxygen Saturation [94-100 %] 95 % (04/22/21 8:02 AM) Pulse Rate [55-90 bpm] 74 bpm (04/22/21 8:02 AM) Body Mass Index [18.5-24.99] 29.42 *H* (04/22/21 8:02 AM) Blood Pressure [90-138/55-84 mm Hg] 116/ 64mm Hg (04/22/21 8:02 AM) Respiratory Rate [16-30 br/min] 12 br/mi n *L* (04/22/21 8:02 AM) Mode of Delivery (Oxygen) Room air (04/22/21 8:02 AM) Blood pressure sites Arm, right (04/22/21 8:02 AM) Weight Obtained Via Standing scale (04/22/21 8:02 AM) Social History Social History Type Response Smoking Status Former smoker; Other : Quit smoking age 44; entered on: 08/22/15 Sex
--- OUTSIDE RECORDS SUMMARY | 2023-04-10 14:18 | XMS_ITS | Continuity of Care Document ---
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 Name Role Phone Otf Zelaya MD Primary Care Physician Encounter [facility] [place] [facility] Date(s): 03/06/23 - 03/07/[address] [address]- Discharge Disposition: A-D/C Walkout Attending Physician: Not on Staff, Attending MD Admitting Physician: Not on Staff, Admitting MD Referring Physician: Not on Staff, Referring [...] 12/24/22 11:59:00 EDT, Route to Pharmacy Electronically, [facility]/pharmacy #[id number], Partial fill upon patient [...] tablet, 3 Refills, Maintenance, 12/24/22 11:59:00 EDT, [id number], 175, cm, 12/24/22 11:31:00 EDT, Height, 88.5, kg, 04/11/21 0:05:00 EST, Dry Weight Start Date: 12/24/22 Status: Ordered betamethasone topical valerate 0.1% cream 1 application, Topically, 2 times a day, # 45 Gm, 1 Refills, Maintenance, 12/24/22 11:58:00 EDT, Cream, [id number], Partial fill upon patient request if the prescription is for a schedule II opioid drug., 1 application Topically 2 times a day,... Start Date: 12/24/22 Status: Ordered Cardizem CD 120 mg/24 hours oral capsule, extended release 120 mg, 1, capsule, By Mouth, Daily, # 90 capsule, Refills 3, Tot. Refills 3, Maintenance, 12/24/2310:59:00 EDT, Route to Pharmacy Electronically, [id number], Partial fill upon patient request if the prescription is for a schedule II opioid d... Start Date: 12/24/22 Status: Ordered fluticasone 50 mcg/inh nasal spray See Instructions, USE 2 SPRAYS IN EACH NOSTRIL DAILY, # 48 mL, 11 Refills, 12/24/22 11:59:00 EDT, [facility]/pharmacy #[id number], 90, USE 2 SPRAYS IN EACH NOSTRIL DAILY, 175, cm, 12/24/22 11:31:00 EDT, Height, 88.5, kg, 04/11/21 0:05:00 EST, Dry Weight Start Date: 12/24/22 Status: Ordered gabapentin 100 mg oral capsule 100 mg, 1, capsule, By Mouth, 3 times a day, # 270 capsule, Refills 3, Tot. Refills 3, Maintenance,12/24/22 11:59:00 EDT, Route to Pharmacy Electronically, [facility]/pharmacy #[id number], Partial fill upon patient request if the prescription is for a schedule II... Start Date: 12/24/22 Status: Ordered metFORMIN 500 mg oral tablet 1 tablet, By Mouth, 2 times a day, # 180 tablet, 3 Refills, Maintenance, 12/24/22 11:59:00 EDT, [facility]/pharmacy #[id number], 175, cm, 12/24/22 11:31:00 EDT, Height, 88.5, kg, 04/11/21 0:05:00 EST, Dry Weight Start Date: 12/24/22 Status: Ordered Metoprolol Tartrate 25 mg oral tablet 0.5 tablet, By Mouth, 2 times a day, # 90 tablet, 3 Refills, Maintenance, 12/24/22 11:59:00 EDT, [facility]/pharmacy #[id number], 175, cm, 12/24/22 11:31:00 EDT, [...] Most recent to oldest [Reference Range]: 1 Oxygen Saturation [94-100 %] 96 % (03/06/23 4:34 PM) Pulse Rate [55-90 bpm] 105 bpm *H* (03/06/23 4:34 PM) Blood Pressure [90-138/55-84 mm Hg] 151/ 90mm Hg *H* (03/06/23 4:34 PM) Respiratory Rate [16-30 br/min] 17 br/mi n (03/06/23 4:34 PM) Temperature [96.8-100.4 DegF] 97.9 DegF (03/06/23 4:34 PM) Mode of Delivery (Oxygen) Room air (03/06/23 4:34 PM) Blood pressure sites Arm, right (03/06/23 4:34 PM) Temperature Route Oral (03/06/23 4:34 PM) Social History Social History Type Response Smoking Status Former smoker; Other : Quit smoking age 44; entered on: 08/22/15 Sex Patient Care team information Care Team Personnel Name: Sherly Ireland NP Position: S Associate Professional Member Role: Primary Care Nurse Address: Address: [address] [place] [id number]- [place] Name: Catihe Barth RN Position: S RN Member Role: Primary Care Nurse Name: Otf Zelaya MD Position: [facility] Physician - Primary Care Member Role: PCP Address: Address: [address] [place] [address]- Name: Daren Jung RN Position: [facility] RN Member Role: Primary Care Nurse Name: Avinash MORRIS, Gretchen Saha Position: [facility] RN Member Role: Primary Care Nurse Care Team Related Persons Name: AARTI ROMAN Address: home [address] [place] [id number] Name: NO, NONE
--- NOTE | 2023-04-10 15:01 | ED.GENADULT ---
HPI - General Adult General Chief complaint: Extremity Injury, Lower Stated complaint: FOOT PAIN Time Seen by Provider: 04/10/23 13:24 Source: patient Mode of arrival: ambulatory Limitations: no limitations History of Present Illness HPI narrative: 72-year-old male with past medical history of diabetes, neuropathy the bilateral lower extremities, and heart attacks in the past presents to the ED for trouble walking for the past 2 weeks due to neuropathy of both feet and also right foot pain. Patient states he was referred to the ED by his primary care provider to be sent to rehab. Patient states he fell 2 weeks ago onto right foot. Patient denies any loss of consciousness, hitting head, or any other complaints. Related Data Home Medications Medication Instructions Recorded Confirmed allopurinol 300 mg tablet 300 mg PO DAILY 04/10/23 04/10/23 atorvastatin 10 mg tablet 10 mg PO DAILY 04/10/23 04/10/23 diltiazem HCl 120 mg 120 mg PO DAILY 04/10/23 04/10/23 capsule,extended release 24 hr ezetimibe 10 mg tablet 10 mg PO DAILY 04/10/23 04/10/23 gabapentin 100 mg capsule 100 mg PO TID 04/10/23 04/10/23 metformin 500 mg tablet 500 mg PO BID 04/10/23 04/10/23 metoprolol tartrate 25 mg tablet 12.5 mg PO BID 04/10/23 04/10/23 ticagrelor 90 mg tablet (Brilinta) 90 mg PO BID 04/10/23 04/10/23 Allergies Allergy/AdvReac Type Severity Reaction Status Date / Time No Known Allergies Allergy Verified 04/10/23 14:54 Review of Systems Review of Systems: right foot pain and swelling. Neuropathy bilaterally lower extremities. Trouble walking. Yes all other systems are reviewed and are negative [facility] Social History Social History Smoked in Last 30 Days: No Use of substances other than those prescribed or required for medical reasons: No Advance Directives: Yes Advance Directives Information Provided: Yes Advance Directives on File: No Physical Exam ED Vital Signs: Vital Signs - 24 hr 04/11/23 06:00 04/11/23 18:25 Temperature 97.7 F Pulse Rate 85 94 Respiratory Rate 12 18 Blood Pressure 148/87 H 163/92 H Pulse Oximetry 97 97 Oxygen Delivery Method Room Air Room Air BMI result Body Mass Index 25.6 Const General: cooperative, healthy appearing, comfortable, no acute distress, well developed, alert, awake and Physically active Orientation/consciousness: oriented to person, oriented to place, oriented to time and patient oriented x3 [facility] Head: Yes normal to inspection, Yes No palpable skull fracture present, Yes normocephalic, Yes atraumatic and No abrasion Eyes General: appearance normal, both eyes and all related structures Neck Neck: Yes normal visual inspection, Yes full ROM, Yes no lymphadenopathy, Yes no meningeal signs, Yes trachea midline, Yes supple, No anterior neck swelling and No tender Chest Chest palpation & inspection: normal inspection of the chest and normal palpation of entire chest wall Resp Effort & Inspection: normal respiratory effort and able to speak in complete sentences Auscultation: clear to auscultation bilaterally Cardio Jugular venous distension: no JVD Heart sounds: S1 normal heart sound present and S2 normal heart sound present GI Inspection: Yes normal to inspection Palpation (GI): Soft to palpation, not firm, nontender, no guarding and not rigid General: No CVA tenderness and Yes no CVA tenderness Back/Spine/Pelvis Back: no CVA tenderness, No CVA tenderness and No back tenderness Skin General skin exam: no rashes or lesions noted, elasticity normal and turgor normal Neuro General: oriented to person, oriented to place, oriented to time, patient oriented x3, tone normal, moves all extremities, Normal light touch and pain sensation, no meningeal signs, no focal motor deficits, CN's II-XI intact bilaterally and normal sensation to monofilament Extrem General: Yes normal to inspection and Yes capillary refill normal Ankle/foot/toe images: 1. Tenderness on palpation with swelling. Negative for crepitus, ecchymosis, or deformity. Motor/neuro /vascular exam intact. Pain on movement of right lower extremity. Psych Appearance: grossly normal, well kempt and not disheveled Course Reevaluation(s) Reevaluation #1: 04/11/2023 - 653 physician observation continued. Vital signs stable. Vital signs stable. No overnight events per nursing staff. Case management following patient for possible placement to short-term rehab. Physical therapy evaluation needed. Will continue to monitor pending PT Case Management dispo planning. Medications Administered Generic Name Dose Route Start Last Admin Trade Name Freq PRN Reason Stop Dose Admin Allopurinol 300 mg 04/11/23 09:00 04/11/23 09:48 Allopurinol 300 Mg Tablet PO Not Given DAILY COLTON Atorvastatin Calcium 10 mg 04/11/23 09:00 04/11/23 09:48 Atorvastatin Calcium 10 Mg Tablet PO Not Given DAILY COLTON Diltiazem HCl 120 mg 04/11/23 09:00 04/11/23 09:49 Diltiazem Hcl Cd 120 Mg Cap.Er.Deg PO Not Given DAILY COLTON Protocol Ezetimibe 10 mg 04/11/23 09:00 04/11/23 09:49 Ezetimibe 10 Mg Tablet PO Not Given DAILY COLTON Gabapentin 100 mg 04/10/23 21:15 04/11/23 20:15 Gabapentin 100 Mg Capsule PO 100 mg TID COLTON Administration Metformin HCl 500 mg 04/10/23 21:15 04/11/23 20:15 Metformin Hcl 500 Mg Tablet PO 500 mg BID COLTON Administration Metoprolol Tartrate 12.5 mg 04/10/23 21:15 04/11/23 20:15 Metoprolol Tartrate 12.5 Mg Halftab PO 12.5 mg BID COLTON Administration Protocol Ticagrelor 90 mg 04/10/23 21:15 04/11/23 20:52 Ticagrelor 90 Mg Tablet PO 90 mg BID COLTON Administration Medical Decision Making Medical Decision Making [facility] Narrative: 72-year-old male history of diabetes, heart attack, and bilateral lower extremity neuropathy presents to the ED for trouble walking the past 2 weeks due to lower extremity pain. Patient also fell onto right ankle 2 weeks ago. Labs imaging ordered. Patient will be case management. 19:18. Patient images are normal labs are baseline. Patient is a physical therapy case management consultation. Received most recent baseline labs which shows patient has chronic kidney disease. Differential Diagnosis Differential Diagnoses: The differential diagnosis associated with the presentation includes ( Fracture, DVT, physical therapy, dislocation) Admission/Observation Consideration of admission/observation: Escalation of care including admission/observation considered Lab Data [facility] Lab Attestation statement: I reviewed the patient's lab results. 04/10/23 15:57 04/10/23 15:57 Labs: Lab Results 04/10/23 04/10/23 Range/Units 15:51 15:57 WBC 9.2 (4.8-10.8) X10*3/uL RBC 4.17 L (4.60-5.80) X10*6/uL Hgb 12.1 L (14.0-18.0) g/dl Hct 37.1 L (42.0-52.0) % MCV 89.0 (80.0-98.0) fL MCH 29.0 (27.0-33.0) pg MCHC 32.6 (31.0-36.0) g/dl RDW 13.8 (11.0-16.0) % Plt Count 263 (160-400) X10*3/uL MPV 10.1 (9.4-12.4) fL Immature Gran % (Auto) 0.7 H (0.0-0.4) % Neut % (Auto) 82.7 H (45-73) % Lymph % (Auto) 9.5 L (20-40) % Lipscomb % (Auto) 6.4 (2-11) % Eos % (Auto) 0.5 (0-4) % Baso % (Auto) 0.2 (0-2) % Lymph # (Auto) 0.9 L (1.2-4.9) X10*3/uL Lipscomb # (Auto) 0.6 (0.1-1.2) X10*3/uL Eos # (Auto) 0.1 (0.0-0.4) X10*3/uL Baso # (Auto) 0.0 (0.0-0.2) X10*3/uL Abs Immat Gran (auto) 0.06 H (0.00-0.03) X10*3/uL Absolute Neuts (auto) 7.6 (2.0-8.3) x10*3/uL Absolute Nucleated RBC 0.000 (0.0-0.012) X10*3/uL Nucleated RBC % (auto) 0.0 (0.0-0.2) /100WBC Sodium 139 (135-145) mmol/L Potassium 4.3 (3.3-5.1) mmol/L Chloride 103 (96-108) mmol/L Carbon Dioxide 23 (22-29) mmol/L Anion Gap 17 (12-20) BUN 36 H (9-16) mg/dL Creatinine 1.69 H (0.5-1.4) mg/dL Estim Creat Clear Calc 29.6 Estimated GFR 40 Random Glucose 213 H (60-115) mg/dL Calcium 10.0 (8.4-10.2) mg/dL Total Bilirubin 0.7 (0.0-1.0) mg/dL AST 27 (5-37) U/L ALT 32 (0-40) U/L Alkaline Phosphatase 138 H (39-117) U/L Total Protein 7.5 (6.5-8.0) g/dL Albumin 3.6 (3.5-5.0) g/dL COVID-19 (BENY) Negative (Negative) COVID-19 Clin Com See Note Independent Interpretation I performed an independent interpretation of an: Plain X-Ray and Ultrasound Radiology Impression Discussion of test interpretation with radiology: I have reviewed the radiologist's reading. External Record Review External record reviewed: Other (Prior visits) Prescription Management I considered prescription management with: Pain Medication Discharge Plan Discharge Clinical Impression: Neuropathy Patient Disposition: Still a Patient Instructions: Peripheral Neuropathy (ED) Prescriptions: No Action metformin 500 mg tablet 500 mg PO BID atorvastatin 10 mg tablet 10 mg PO DAILY diltiazem HCl 120 mg capsule,extended release 24hr 120 mg PO DAILY allopurinol 300 mg tablet 300 mg PO DAILY gabapentin 100 mg capsule 100 mg PO TID ezetimibe 10 mg tablet 10 mg PO DAILY metoprolol tartrate 25 mg tablet 12.5 mg PO BID Brilinta 90 mg tablet 90 mg PO BID
[2023-04-10 16:01] LABS: MANUAL DIFF FLAG NO
[2023-04-10 16:03] LABS: Basophils Percent Auto 0.2 % (0-2); Eosinophils Absolute Auto 0.1 X10*3/uL (0.0-0.4); Eosinophils Percent Auto 0.5 % (0-4); Hematocrit 37.1 % (42.0-52.0); Hemoglobin 12.1 g/dl (14.0-18.0); Imm Gran Abs Auto 0.06 X10*3/uL (0.00-0.03); Imm Gran Pct Auto 0.7 % (0.0-0.4); Lymphocytes Absolute Auto 0.9 X10*3/uL (1.2-4.9); Lymphocytes Percent Auto 9.5 % (20-40); Mean Corpuscular HGB Conc 32.6 g/dl (31.0-36.0); Mean Platelet Volume 10.1 fL (9.4-12.4); Monocytes Absolute Auto 0.6 X10*3/uL (0.1-1.2); Monocytes Percent Auto 6.4 % (2-11); Neutrophils Absolute Auto 7.6 x10*3/uL (2.0-8.3); Neutrophils Percent Auto 82.7 % (45-73); Platelet Count 263 X10*3/uL (160-400); Red Blood Count 4.17 X10*6/uL (4.60-5.80); Red Cell Distribution Width 13.8 % (11.0-16.0); White Blood Count 9.2 X10*3/uL (4.8-10.8)
[2023-04-10 16:20] LABS: COVID-19 Test Negative (Negative); IDNOW Serial# 08D9AD1C
[2023-04-10 16:24] LABS: Alanine Aminotransferase 32 U/L (0-40); Albumin Level 3.6 g/dL (3.5-5.0); Alkaline Phosphatase 138 U/L (39-117); Anion Gap 17 (12-20); Aspartate Amino Transferase 27 U/L (5-37); Bilirubin Total 0.7 mg/dL (0.0-1.0); Blood Urea Nitrogen 36 mg/dL (9-16); Carbon Dioxide 23 mmol/L (22-29); Chloride 103 mmol/L (96-108); Creatinine Clr Calc Pharmacy 29.6; Estimated Glomerular Filt Rate 40; Glucose Random 213 mg/dL (60-115); Potassium 4.3 mmol/L (3.3-5.1); Sodium 139 mmol/L (135-145); Total Protein 7.5 g/dL (6.5-8.0)
[2023-04-10 18:56] VITALS: BP 158/94; PULSE 93; RESP 16; TEMP 36.8; O2SAT 95
--- NOTE | 2023-04-10 21:12 | PHA.MEDREC ---
Pharmacy Consult ? Medication Reconciliation Pharmacy has reviewed the medication reconciliation completed by Bri. Sandie Campuzano, JenniferD
[2023-04-10] MEDS: metFORMIN HCl 500 MG TABLET PO (21:41)
[2023-04-10] MEDS: Metoprolol Tartrate 12.5 MG HALFTAB PO (21:41)
[2023-04-10] MEDS: Gabapentin 100 MG CAPSULE PO (21:41)
[2023-04-10] MEDS: Ticagrelor 90 MG TABLET PO (21:41)
[2023-04-10 21:42] VITALS: BP 155/86; PULSE 92; RESP 16; TEMP 37.1; O2SAT 97
--- NOTE | 2023-04-10 22:33 | MHC.CM.ED ---
CM met with patient at request of Tapan MENDIOLA. Pt tells CM he has not been able to walk for about 5 weeks and has been using his wheelchair. Pt also has a walker and a cane. Pt lives in elderly housing. 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 Would like services with [facility] for MOW. Pt is agreeable to rehab. Aware that he will stay overnight for PT evaluation in the morning. First choice is [facility]. If no acute, would like [facility] as first choice. Pt aware that his insurance must approve payment and that facility would need to accept [employer] Medicare. Pt is aware that he may be here over the weekend. Referrals placed. CM will follow for discharge planning.
[2023-04-11 06:00] VITALS: BP 148/87; PULSE 85; RESP 12; O2SAT 97
--- NOTE | 2023-04-11 06:18 | PC.NURSE ---
attempted to change patient into hospital gown and socks but patient refused. pt says no please no socks on my feet they hurt too bad from my neuropathy Pt also refusing to change into hospital gown at this time, says he will later when he can sit up to take shirt off. Fall risk socks tied to side rails of bed - gown paced at bedside. pt using urinal appropriately, needs met, given cup of ice water and vital signs updated. patient waiting for PT eval. call bruce within reach - plan of care ongoing
--- NOTE | 2023-04-11 09:50 | PC.NURSE ---
patient took his own meds in his bag prior to me giving meds. He had a med prefill daily dose that he used from home. I reminded not to take any meds from his home
--- NOTE | 2023-04-11 15:48 | MHC.CM.PN ---
P.T. REC STR, REFERRALS UPDATED. FACILITIES UNABLE TO OBTAIN INS. AUTH UNTIL THURSDAY. CENTERS UPDATED.
--- NOTE | 2023-04-11 16:09 | MHC.EDTECH ---
Patient repositioned and bed pad changed
[2023-04-11] MEDS: Gabapentin 100 MG CAPSULE PO ×2 (16:30→20:15)
[2023-04-11 18:25] VITALS: BP 163/92; PULSE 94; RESP 18; TEMP 36.5; O2SAT 97
--- NOTE | 2023-04-11 19:01 | PC.NURSE ---
pt a&o x4, calm, and cooperative. pt urinated 125cc in urinal and had a large formed bowel movement with bedpan. pt cleaned up and repositioned in bed. no complaints anthony. resting quietly watching tv. makes needs known. call bruce within reach. plan of care ongoing.
[2023-04-11] MEDS: metFORMIN HCl 500 MG TABLET PO (20:15)
[2023-04-11] MEDS: Metoprolol Tartrate 12.5 MG HALFTAB PO (20:15)
[2023-04-11] MEDS: Ticagrelor 90 MG TABLET PO (20:52)
--- NOTE | 2023-04-11 21:39 | PC.NURSE ---
pt is A+O resting in bed hot pack applied to right foot states helps with the pain has non pitting edema to right foot + pedal pulses chico.Resting in bed HOB elevated call bruce within reach.
[2023-04-12 06:00] VITALS: BP 153/91; PULSE 85; RESP 16; TEMP 36.1; O2SAT 95
[2023-04-12 07:54] LABS: Glucose, Whole Blood 177 mg/dL (60-115)
[2023-04-12] MEDS: Ticagrelor 90 MG TABLET PO ×2 (08:45→20:40)
[2023-04-12] MEDS: dilTIAZem HCL CD 120 MG CAP.ER.DEG PO (08:45)
[2023-04-12] MEDS: Ezetimibe 10 MG TABLET PO (08:46)
[2023-04-12] MEDS: Gabapentin 100 MG CAPSULE PO ×3 (08:46→20:40)
[2023-04-12] MEDS: metFORMIN HCl 500 MG TABLET PO ×2 (08:46→20:40)
[2023-04-12] MEDS: allopurinoL 300 MG TABLET PO (08:46)
[2023-04-12] MEDS: Atorvastatin Calcium 10 MG TABLET PO (08:46)
[2023-04-12] MEDS: Metoprolol Tartrate 12.5 MG HALFTAB PO ×2 (08:46→20:40)
--- NOTE | 2023-04-12 09:44 | PC.NURSE ---
pt awake and alert, pleasant, eating breakfast. medicated per MAY. pt aware of plan of care for STR. c/o mild discomfort to MACKENZIE legs/feet, requesting heat pack at this time. pt NAD, rr even, unlabored.
[2023-04-12 11:27] LABS: Glucose, Whole Blood 238 mg/dL (60-115)
[2023-04-12 13:56] VITALS: BP 118/70; PULSE 88; RESP 17; TEMP 37; O2SAT 96
[2023-04-12 16:31] LABS: Glucose, Whole Blood 165 mg/dL (60-115)
[2023-04-12 20:29] VITALS: BP 137/76; PULSE 98; RESP 16; TEMP 36.7; O2SAT 98
[2023-04-12 20:30] LABS: Glucose, Whole Blood 202 mg/dL (60-115)
--- NOTE | 2023-04-12 20:40 | PC.NURSE ---
Pt aox4 resting at the bedside. No apparent distress noted. Medicated per MAY. Tolerated well. Pillow placed underneath both legs for support. Call bruce and belongings within reach. Pt aware of plan of care. Monitoring is ongoing.
[2023-04-13 05:32] VITALS: BP 158/84; PULSE 64; RESP 16; TEMP 36.5; O2SAT 96
--- NOTE | 2023-04-13 05:35 | MHC.EDTECH ---
Patient refused to be reposition ,700 ml urine empty from urinal ,vitals taken .
[2023-04-13 07:20] LABS: Glucose, Whole Blood 179 mg/dL (60-115)
[2023-04-13] MEDS: Gabapentin 100 MG CAPSULE PO (08:00)
[2023-04-13] MEDS: allopurinoL 300 MG TABLET PO (08:00)
[2023-04-13] MEDS: metFORMIN HCl 500 MG TABLET PO (08:00)
[2023-04-13] MEDS: Ezetimibe 10 MG TABLET PO (08:00)
[2023-04-13] MEDS: Atorvastatin Calcium 10 MG TABLET PO (08:00)
[2023-04-13] MEDS: Metoprolol Tartrate 12.5 MG HALFTAB PO (08:00)
--- NOTE | 2023-04-13 08:05 | MHC.CM.ED ---
Addendum entered by Michelle Baker 04/13/23 12:14: Insurance auth has been obtained. Patient can leave at 230pm. Mari FABIAN booked. Med nec with chart. Patient, China MORRIS and Mary TURCIOS aware. Original Note: Patient remains in ER overflow. [facility] is in the process of obtaining ins auth. Continue to monitor for d/c needs.
[2023-04-13] MEDS: Ticagrelor 90 MG TABLET PO (09:03)
[2023-04-13] MEDS: dilTIAZem HCL CD 120 MG CAP.ER.DEG PO (09:03)
[2023-04-13 11:17] LABS: Glucose, Whole Blood 253 mg/dL (60-115)
--- NOTE | 2023-04-13 12:26 | PC.NURSE ---
Assumed care of this pt at 1115, Physical Therapist at bedside at the time of assuming care. Pt a+o x3, no complaints at this time. Pt accepted to [facility], ambulance pick-up scheduled for 1430, pt aware of plan. Pt ate lunch.
--- NOTE | 2023-04-13 13:13 | MHC.EDTECH ---
patient washed lower parts of his body just needed assistance with his top part of his body and wahed his own teeth
== END 2023-04-13 13:47 ==
PROVIDERS: Physician Assistant; Emergency Provider Emergency Medicine Emergency Medical Services; PCP Internal Medicine
DX: G57.93 Unspecified mononeuropathy of bilateral lower limbs (principal); M79.605 Pain in left leg; M79.604 Pain in right leg; M25.571 Pain in right ankle and joints of right foot; R60.0 Localized edema; M79.672 Pain in left foot; M79.671 Pain in right foot; Z11.52 Encounter for screening for COVID-19; Z79.899 Other long term (current) drug therapy
CPT/HCPCS: 36415; 73552; 73590; 73600; 73620; 80053; 82947; 85025; 87635; 93971; 97162; 97530; 99284; 99285